=== PATIENT | female | born 1995 ===

== ENCOUNTER 2023-10-20 09:46 | Outpatient (AMB) | payer BC, SELFPAY ==
[2023-10-20 09:51] VITALS: BP 130/70; PULSE 110; O2SAT 100; BMI 46.1
--- NOTE | 2023-10-20 09:51 | MHC.OFFVIS ---
Intake Vital Signs 10/20/23 09:51 Height 5 ft 5 in Weight 277 lb BMI 46.1 BP 130/70 Blood Pressure Location Lt brachial Position Sitting Pulse 110 H Pulse Source Pulse Oximeter Pulse Oximetry (%) 100 Oxygen Delivery Method Room Air Intake Visit Reasons: shortness of breath Apartment House Manager Required: No Steward/Stewardess Tourist Class: Steward/Stewardess Tourist Class offered & declined Accompanied by: Self / Same As Patient Allergies Opioids - Morphine Analogues Allergy (Severe, Verified 10/20/23 09:55) Vomiting Medication List - Last Reconciled 10/20/23 by Aria Rosales LPN colchicine (gout) 0.6 mg PO BID cyclobenzaprine 10 mg PO BEDTIME fluconazole 150 mg PO DAILY PRN hydroxychloroquine 200 mg PO BID lamotrigine (Lamictal) 100 mg PO DAILY levonorgestrel (Liletta) intrauterine lorazepam 0.5 mg PO DAILY propranolol 20 mg PO DAILY sertraline 25 mg PO DAILY HPI shortness of breath HPI Details Yojana is a pleasant 28 year old female, current smoker with 12 pack year history and marijuana smoker, with underlying lupus, scleroderma, raynaud's, h/o pericardial effusion s/p pericardial window and recurrent pericarditis last November 2022. She is under the care of cardiology and rheumatology [place] [facility] [place] She has been on cellcept for the past 10 months and reports ESR/CRP have normalized, most recent cardiac MRI reportedly suggestive of cardiac fibrosis. She is also on hydroxychloroquine. She was referred for pulmonary evaluation by PCP for dyspnea. She reports since initial occurrence of pericarditis in 2019 she has had intermittent respiratory symptoms. She was recently seen in the ED 09/09/23 and again 10/06/23 with pleuritic chest pain and treated for possible pneumonia with two courses of prednisone and amoxicillin. CTA negative for PE but did reveal possible scarring of the lingula vs atelectasis. She reports pleuritic chest pain resolved about two days ago and continues with dyspnea on moderate exertion and dry cough. She denies any wheezing. She was prescribed flovent but unfortunately has been unable to obtain due to insurance coverage issues. She has been using albuterol PRN chest tigthness with good effect. She reports history of exercise induced asthma as a child. She reports paternal grandmother and maternal grandfather with lung cancer. Denies any occupational exposures. [facility] Social History (Updated 10/20/23 @ 09:59 by Aria Rosales LPN) Patient Tobacco Use Status: Current everyday Tobacco user Tobacco use type: Cigarette Cigarettes Per Day: 5 Years Smoked: 12 Smoked in Last 30 Days: Yes Review of Systems Const Denies chills, Denies excessive sweating, Denies fever(s), Denies headache(s) and Denies night sweats Eyes Denies irritation and Denies itchy eyes ENT Reports Normal hearing present, Denies headache(s), Denies nasal congestion, Denies nasal discharge, Denies post nasal drip and Denies sore throat Card Denies chest pain, Denies chest pain at rest, Denies chest pain with activity, Denies claudication, Denies leg edema, Denies orthopnea and Denies paroxysmal nocturnal dyspnea Resp Denies chest congestion, Denies excessive phlegm production, Denies pain on inspiration, Denies pain with cough, Denies stridor and Denies wheezing Musc Denies myalgias Neuro Reports Normal hearing present and Denies headache(s) Endo Denies excessive sweating Miller/Lymph Denies lymphadenopathy Aller/Immun Denies itchy eyes, Denies seasonal rhinorrhea and Denies wheezing Physical Exam Vital Signs: Last Vital Signs Pulse 110 H 10/20/23 09:51 BP 130/70 10/20/23 09:51 Pulse Ox 100 10/20/23 09:51 Oxygen Delivery Method Room Air 10/20/23 09:51 BMI result Body Mass Index 46.1 Const General: cooperative, healthy appearing, comfortable, no acute distress, well developed and alert Nutritional Appearance: obese Orientation/consciousness: patient oriented x3 Limitations: no limitations HEENT Head: Yes normal to inspection, Yes normocephalic and Yes atraumatic Ears: hearing grossly normal bilaterally and external ears normal Eyes General: appearance normal, both eyes and all related structures Eyelids: Yes eyelids normal Sclerae: sclerae normal EOM: EOMs intact bilaterally Neck Neck: Yes normal visual inspection and Yes no lymphadenopathy Lymphatic: no lymphadenopathy noted Chest Chest palpation & inspection: normal inspection of the chest Resp Effort & Inspection: normal respiratory effort, able to speak in complete sentences, no audible wheezes, no cough, no stridor, not tachypneic, no tripod positioning and no use of accessory muscles Auscultation: clear to auscultation bilaterally Cardio Jugular venous distension: no JVD Rate: regular rate Rhythm: regular rhythm Skin Other: warm, dry General skin exam: no rashes or lesions noted Neuro General: patient oriented x3 Cranial nerves: Yes Normal hearing present Cognition (Neuro): normal cognition Gait exam (Neuro): Normal gait present Extrem General: Yes normal to inspection, Yes capillary refill normal, Yes no clubbing, cyanosis or edema and Yes no pedal edema Psych Appearance: grossly normal and well kempt Speech and movement: Normal speech and movement present and Clear speech present Affect: normal affect Attitude: cooperative Thought process: Normal thought process present Thought content: Normal thought content present Insight: Good insight present (Psych) Judgement: Good judgement present (Psych) Assessment & Plan Assessment & Plan (1) Lupus (systemic lupus erythematosus): Code(s): M32.9 - Systemic lupus erythematosus, unspecified (2) History of pericarditis: Code(s): Z86.79 - Personal history of other diseases of the circulatory system (3) Scleroderma: Code(s): M34.9 - Systemic sclerosis, unspecified (4) Dyspnea on exertion: Code(s): R06.09 - Other forms of dyspnea (5) Obesity: Code(s): E66.9 - Obesity, unspecified Qualifiers: Obesity classification: adult class 3 (BMI >= 40) Plan Yojana's symptoms are likely related to underlying autoimmune etiologies as well as pulmonary and obesity contribution. At this time, she feels her symptoms are back to baseline with intermittent dyspnea with moderate exertion. Will obtain PFT to assess. Patient reported that she has been unable to obtain ICS, will send ICS. She is aware if she is unable to attain prescription, to call office. Will also obtain prior chest CTs that she has had over the years at [facility] to further evaluate possible scarring noted on most recent chest CT. Will also have her sign a release to obtain records from rheumatology and cardiology. All questions were answered and patient is in agreement of plan. Will follow up in 4-6 weeks to review PFT results and response to inhaler. Orders: Orders PFT pulmonary function test Today R06.09 - Other forms of dyspnea Medications: New mometasone 100 mcg/actuation (Asmanex HFA) 1 puff inhalation BID 13 grams 3RF Coding Level of Care Code New Pt Level 4 (92342) Diagnoses Lupus (systemic lupus erythematosus) M32.9 History of pericarditis Z86.79 Scleroderma M34.9 Dyspnea on exertion R06.09 Obesity E66.9 Obesity classification: adult class 3 (BMI >= 40)
== END 2023-10-20 10:40 | disposition home or self-care (01) ==
PROVIDERS: PCP Internal Medicine; Visit Provider Nurse Practitioner Family
DX: M32.9 Systemic lupus erythematosus, unspecified (principal); Z86.79 Personal history of other diseases of the circulatory system; M34.9 Systemic sclerosis, unspecified; R06.09 Other forms of dyspnea; E66.9 Obesity, unspecified
CPT/HCPCS: 99204

== ENCOUNTER → 2023-10-20 09:46 | Outpatient (BNVA) | payer BC, SELFPAY | PROVIDERS: PCP Internal Medicine; Visit Provider Nurse Practitioner Family ==

== ENCOUNTER 2023-11-19 08:44 | Outpatient (REF) | payer BC, SELFPAY ==
--- NOTE | 2023-11-19 09:00 | PFT_ITS ---
Indication: Asthma Spirometry [FEV1 to FVC 85%; FEV1 3 L which is 102% predicted; FVC 3.52 L which is 99% predicted no significant response to bronchodilators noted. Maximum voluntary ventilation 81% predicted] Lung Volumes [Total lung capacity 78% predicted] Diffusion Capacity [DLCO 92% predicted] Comparisons [None] Interpretation [No obstructive ventilatory defects. No significant response bronchodilators. Normal maximum voluntary ventilation. The patient does have a mild restrictive ventilatory defect. Normal diffusing capacity. If asthma is in the differential methacholine challenge may be helpful for assessing for hyperreactive airways. Otherwise clinical correlation warranted.] MTDD
== END 2023-11-19 08:45 | disposition home or self-care (01) ==
LOC: HO.RESP 08:44
PROVIDERS: PCP Internal Medicine; Visit Provider Nurse Practitioner Family
DX: R06.09 Other forms of dyspnea (principal)
CPT/HCPCS: 94010; 94727; 94729

== ENCOUNTER → 2023-11-19 09:00 | Outpatient (BNV) | payer BC, SELFPAY | PROVIDERS: PCP Internal Medicine; Visit Provider Hospitalist | DX: R06.00 Dyspnea, unspecified (principal) | CPT/HCPCS: 94060; 94727; 94729 ==

== ENCOUNTER 2023-12-02 15:08 | Outpatient (AMB) | payer BC, SELFPAY ==
[2023-12-02 15:11] VITALS: BP 122/64; PULSE 112; O2SAT 100; BMI 45.9
--- NOTE | 2023-12-02 15:11 | MHC.OFFVIS ---
Intake Vital Signs 12/02/23 15:11 Height 5 ft 5 in Weight 276 lb BMI 45.9 BP 122/64 Blood Pressure Location Rt brachial Position Sitting Pulse 112 H Pulse Source Pulse Oximeter Pulse Oximetry (%) 100 Oxygen Delivery Method Room Air Intake Visit Reasons: pft results Dyer Helper Required: No Senior Mechanical Designer: Senior Mechanical Designer offered & declined Accompanied by: Self / Same As Patient Allergies Opioids - Morphine Analogues Allergy (Severe, Verified 12/02/23 15:17) Vomiting Medication List - Last Reconciled 12/02/23 by Aria Rosales LPN budesonide-formoterol 80-4.5 mcg/actuation (Symbicort) 2 puffs inhalation Q12H colchicine 0.6 mg PO BID cyclobenzaprine 10 mg PO BEDTIME hydroxychloroquine 200 mg PO BID lamotrigine (Lamictal) 100 mg PO DAILY levonorgestrel (Liletta) intrauterine lorazepam 0.5 mg PO DAILY mometasone 100 mcg/actuation (Asmanex HFA) 1 puff inhalation BID mycophenolate mofetil 3tabs in am/2tabs in the pm orally 2 times a day; HPI pft results HPI Details Yojana is a pleasant 28 year old female, current minimal smoker with 12 pack year history with underlying lupus, scleroderma, raynaud's, h/o pericardial effusion s/p pericardial window and recurrent pericarditis last November 2022. She is under the care of cardiology and rheumatology at [facility] [place]. At the last visit she was started on symbicort for persistent dyspnea on moderate exertion and dry cough. She reports improvements overall, but has only been using at night. She denies any chest tightness or wheezing. Of note, she has decreased to 2 cigarettes per day and has stopped smoking marijuana. She has noticed significant improvements since decreasing. Today she presents to review PFT results. [facility] Social History (Updated 12/02/23 @ 15:21 by Aria Rosales LPN) Patient Tobacco Use Status: Current everyday Tobacco user Tobacco use type: Cigarette Cigarettes Per Day: 3 Years Smoked: 12 Review of Systems Const Denies chills, Denies excessive sweating, Denies fever(s), Denies headache(s) and Denies night sweats Eyes Denies irritation and Denies itchy eyes ENT Reports Normal hearing present, Denies headache(s), Denies nasal congestion, Denies nasal discharge, Denies post nasal drip and Denies sore throat Card Denies chest pain, Denies chest pain at rest, Denies chest pain with activity, Denies claudication, Denies leg edema, Denies orthopnea and Denies paroxysmal nocturnal dyspnea Resp Denies chest congestion, Denies cough, Denies excessive phlegm production, Denies pain on inspiration, Denies pain with cough, Denies stridor and Denies wheezing Musc Denies myalgias Neuro Reports Normal hearing present and Denies headache(s) Endo Denies excessive sweating Miller/Lymph Denies lymphadenopathy Aller/Immun Denies itchy eyes, Denies seasonal rhinorrhea and Denies wheezing Physical Exam Vital Signs: Last Vital Signs Pulse 112 H 12/02/23 15:11 BP 122/64 12/02/23 15:11 Pulse Ox 100 12/02/23 15:11 Oxygen Delivery Method Room Air 12/02/23 15:11 BMI result Body Mass Index 45.9 Const General: cooperative, healthy appearing, comfortable, no acute distress, well developed and alert Nutritional Appearance: obese Orientation/consciousness: patient oriented x3 Limitations: no limitations HEENT Head: Yes normal to inspection, Yes normocephalic and Yes atraumatic Ears: hearing grossly normal bilaterally and external ears normal Eyes General: appearance normal, both eyes and all related structures Eyelids: Yes eyelids normal Sclerae: sclerae normal EOM: EOMs intact bilaterally Neck Neck: Yes normal visual inspection and Yes no lymphadenopathy Lymphatic: no lymphadenopathy noted Chest Chest palpation & inspection: normal inspection of the chest Resp Effort & Inspection: normal respiratory effort, able to speak in complete sentences, no audible wheezes, no cough, no stridor, not tachypneic, no tripod positioning and no use of accessory muscles Auscultation: clear to auscultation bilaterally Cardio Jugular venous distension: no JVD Rate: regular rate Rhythm: regular rhythm Skin Other: warm, dry General skin exam: no rashes or lesions noted Neuro General: patient oriented x3 Cranial nerves: Yes Normal hearing present Cognition (Neuro): normal cognition Gait exam (Neuro): Normal gait present Extrem General: Yes normal to inspection, Yes capillary refill normal, Yes no clubbing, cyanosis or edema and Yes no pedal edema Psych Appearance: grossly normal and well kempt Speech and movement: Normal speech and movement present and Clear speech present Affect: normal affect Attitude: cooperative Thought process: Normal thought process present Thought content: Normal thought content present Insight: Good insight present (Psych) Judgement: Good judgement present (Psych) Results Reviewed Results Reviewed: Assessment & Plan Assessment & Plan (1) Lupus (systemic lupus erythematosus): Code(s): M32.9 - Systemic lupus erythematosus, unspecified (2) History of pericarditis: Code(s): Z86.79 - Personal history of other diseases of the circulatory system (3) Scleroderma: Code(s): M34.9 - Systemic sclerosis, unspecified (4) Dyspnea on exertion: Code(s): R06.09 - Other forms of dyspnea (5) Obesity: Code(s): E66.9 - Obesity, unspecified Qualifiers: Obesity classification: adult class 3 (BMI >= 40) Plan Reviewed PFT which did not reveal an obstructive defect and no significant response to bronchodilators except in small to medium airways. TLC was slightly decreased at 78% which is likely secondary to obesity. DLCO normal. Overall patient reports improvements in dyspnea and cough. Advised to attempt symbicort BID and use albuterol PRN. All questions were answered and patient is in agreement of plan. Will follow up in 6 months or sooner if needed. Coding Level of Care Code Est Pt Level 4 (19595) Diagnoses Lupus (systemic lupus erythematosus) M32.9 History of pericarditis Z86.79 Scleroderma M34.9 Dyspnea on exertion R06.09 Obesity E66.9 Obesity classification: adult class 3 (BMI >= 40)
== END 2023-12-02 15:48 | disposition home or self-care (01) ==
PROVIDERS: PCP Internal Medicine; Visit Provider Nurse Practitioner Family
DX: M32.9 Systemic lupus erythematosus, unspecified (principal); Z86.79 Personal history of other diseases of the circulatory system; M34.9 Systemic sclerosis, unspecified; R06.09 Other forms of dyspnea; E66.9 Obesity, unspecified
CPT/HCPCS: 99214

== ENCOUNTER → 2023-12-02 15:08 | Outpatient (BNVA) | payer BC, SELFPAY | PROVIDERS: PCP Internal Medicine; Visit Provider Nurse Practitioner Family ==

== ENCOUNTER 2024-02-26 14:59 | Outpatient (AMB) | payer BC, SELFPAY ==
[2024-02-26 15:03] VITALS: BP 122/68; PULSE 110; O2SAT 99; BMI 45.3
--- NOTE | 2024-02-26 15:03 | MHC.OFFVIS ---
Intake Vital Signs 02/26/24 15:03 Height 5 ft 5 in Weight 272 lb BMI 45.3 BP 122/68 Blood Pressure Location Rt brachial Position Sitting Pulse 110 H Pulse Source Pulse Oximeter Pulse Oximetry (%) 99 Oxygen Delivery Method Room Air Intake Visit Reasons: dyspnea on exertion Section Weaver Required: No Windows Security Engineer: Windows Security Engineer offered & declined Accompanied by: Self / Same As Patient Allergies Opioids - Morphine Analogues Allergy (Severe, Verified 02/26/24 15:07) Vomiting Medication List - Last Reconciled 02/26/24 by Aria Rosales LPN budesonide-formoterol 80-4.5 mcg/actuation (Symbicort) 2 puffs inhalation Q12H colchicine 0.6 mg PO BID cyclobenzaprine 10 mg PO BEDTIME hydroxychloroquine 200 mg PO BID lamotrigine (Lamictal) 100 mg PO DAILY levonorgestrel (Liletta) intrauterine lorazepam 0.5 mg PO DAILY mycophenolate mofetil 3tabs in am/2tabs in the pm orally 2 times a day; HPI dyspnea on exertion HPI Details Yojana is a pleasant 28 year old female, current minimal smoker with 12 pack year history with underlying lupus, scleroderma, raynaud's, h/o pericardial effusion s/p pericardial window and recurrent pericarditis last November 2022. She is under the care of cardiology and rheumatology at [facility] [place]. She has been using symbicort 1 inhalation QHS with suboptimal effect, reporting occasional dyspnea and dry cough. She denies any chest tightness or wheezing. Today she presents for an acute visit. She reports ongoing lower left pleuritic pain that started a few days ago and now with right sided pleuritic pain. She denies any hemoptysis or significant dyspnea. She denies lower extremity pain/swelling/erythema. [facility] Social History (Updated 02/26/24 @ 15:08 by Aria Rosales LPN) Patient Tobacco Use Status: Current everyday Tobacco user Tobacco use type: Cigarette Cigarettes Per Day: 3 Years Smoked: 12 Review of Systems Const Denies chills, Denies excessive sweating, Denies fever(s), Denies headache(s) and Denies night sweats Eyes Denies irritation and Denies itchy eyes ENT Reports Normal hearing present, Denies headache(s), Denies nasal congestion, Denies nasal discharge, Denies post nasal drip and Denies sore throat Card Denies claudication, Denies leg edema, Denies orthopnea and Denies paroxysmal nocturnal dyspnea Resp Denies chest congestion, Denies cough, Denies excessive phlegm production, Denies pain on inspiration, Denies pain with cough, Denies stridor and Denies wheezing Musc Denies myalgias Neuro Reports Normal hearing present and Denies headache(s) Endo Denies excessive sweating Miller/Lymph Denies lymphadenopathy Aller/Immun Denies itchy eyes, Denies seasonal rhinorrhea and Denies wheezing Physical Exam Vital Signs: Last Vital Signs Pulse 110 H 02/26/24 15:03 BP 122/68 02/26/24 15:03 Pulse Ox 99 02/26/24 15:03 Oxygen Delivery Method Room Air 02/26/24 15:03 BMI result Body Mass Index 45.3 Const General: cooperative, healthy appearing, comfortable, no acute distress, well developed and alert Nutritional Appearance: obese Orientation/consciousness: patient oriented x3 Limitations: no limitations HEENT Head: Yes normal to inspection, Yes normocephalic and Yes atraumatic Ears: hearing grossly normal bilaterally and external ears normal Eyes General: appearance normal, both eyes and all related structures Eyelids: Yes eyelids normal Sclerae: sclerae normal EOM: EOMs intact bilaterally Neck Neck: Yes normal visual inspection and Yes no lymphadenopathy Lymphatic: no lymphadenopathy noted Chest Chest palpation & inspection: normal inspection of the chest Resp Effort & Inspection: normal respiratory effort, able to speak in complete sentences, no audible wheezes, no cough, no stridor, not tachypneic, no tripod positioning and no use of accessory muscles Auscultation: clear to auscultation bilaterally Cardio Jugular venous distension: no JVD Rate: regular rate Rhythm: regular rhythm Skin Other: warm, dry General skin exam: no rashes or lesions noted Neuro General: patient oriented x3 Cranial nerves: Yes Normal hearing present Cognition (Neuro): normal cognition Gait exam (Neuro): Normal gait present Extrem General: Yes normal to inspection, Yes capillary refill normal, Yes no clubbing, cyanosis or edema and Yes no pedal edema Psych Appearance: grossly normal and well kempt Speech and movement: Normal speech and movement present and Clear speech present Affect: normal affect Attitude: cooperative Thought process: Normal thought process present Thought content: Normal thought content present Insight: Good insight present (Psych) Judgement: Good judgement present (Psych) Assessment & Plan Assessment & Plan (1) Lupus (systemic lupus erythematosus): Code(s): M32.9 - Systemic lupus erythematosus, unspecified (2) History of pericarditis: Code(s): Z86.79 - Personal history of other diseases of the circulatory system (3) Scleroderma: Code(s): M34.9 - Systemic sclerosis, unspecified (4) Dyspnea on exertion: Code(s): R06.09 - Other forms of dyspnea (5) Obesity: Code(s): E66.9 - Obesity, unspecified Qualifiers: Obesity classification: adult class 3 (BMI >= 40) Plan Patient continues to report intermittent dyspnea and cough. Recommended to increase symbicort to BID and reevaluate response at next visit. In regards to new onset pleuritic chest pain, will send patient for ddimer, although likelihood of clot is low. Will also send for CXR. Patient aware if develops worsening symptoms to seek emergent care. All questions were answered and patient is in agreement of plan. Will follow up at regularly scheduled appointment or sooner if needed. Orders: Orders D Dimer High Sensitivity 02/26/24 R07.81 - Pleurodynia XR chest 2V 02/26/24 R07.81 - Pleurodynia Medications: Refilled budesonide-formoterol 80-4.5 mcg/actuation (Symbicort) 2 puffs inhalation Q12H 10.2 grams 6RF Coding Level of Care Code Est Pt Level 4 (50276) Diagnoses Lupus (systemic lupus erythematosus) M32.9 History of pericarditis Z86.79 Scleroderma M34.9 Dyspnea on exertion R06.09 Obesity E66.9 Obesity classification: adult class 3 (BMI >= 40)
== END 2024-02-26 15:30 | disposition home or self-care (01) ==
PROVIDERS: PCP Internal Medicine; Visit Provider Nurse Practitioner Family
DX: M32.9 Systemic lupus erythematosus, unspecified (principal); Z86.79 Personal history of other diseases of the circulatory system; M34.9 Systemic sclerosis, unspecified; R06.09 Other forms of dyspnea; E66.9 Obesity, unspecified
CPT/HCPCS: 99214

== ENCOUNTER → 2024-02-26 14:59 | Outpatient (BNVA) | payer BC, SELFPAY | PROVIDERS: PCP Internal Medicine; Visit Provider Nurse Practitioner Family ==

== ENCOUNTER 2024-04-01 14:46 | Outpatient (AMB) | payer BC, SELFPAY ==
[2024-04-01 14:52] VITALS: BP 128/80; PULSE 92; O2SAT 100; BMI 45.8
--- NOTE | 2024-04-01 14:52 | MHC.OFFVIS ---
Vital Signs 04/01/24 14:52 Height 5 ft 5 in Weight 275 lb 6 oz BMI 45.8 BP 128/80 Blood Pressure Location Lt radial Position Sitting Pulse 92 Pulse Source Pulse Oximeter Pulse Oximetry (%) 100 Oxygen Delivery Method Room Air Intake Visit Reasons: dyspnea Allergies Opioids - Morphine Analogues Allergy (Severe, Verified 04/01/24 14:58) Vomiting HPI HPI dyspnea: Details: Yojana is a pleasant 28 year old female, current minimal smoker with 12 pack year history with underlying lupus, scleroderma, raynaud's, h/o pericardial effusion s/p pericardial window and recurrent pericarditis last November 2022. She is under the care of cardiology and rheumatology at [facility]. She has been using symbicort 1 inhalation QHS with suboptimal effect, reporting occasional dyspnea and chest tightness. She denies cough or wheezing. She was recently evaluated at [place] [facility] for ongoing RUQ pain. Ddimer negative however upper limit of normal, CTA negative for PE. Patient will be undergoing GI evaluation in the near future with endoscopy vs ercp at [facility]. She also reports an upcoming echo. [facility] Social History Patient Tobacco Use Status: Current everyday Tobacco user Tobacco use type: Cigarette Cigarettes Per Day: 3 Years Smoked: 12 Review of Systems Const Denies chills, Denies excessive sweating, Denies fever(s), Denies headache(s) and Denies night sweats Eyes Denies irritation and Denies itchy eyes ENT Reports Normal hearing present, Denies headache(s), Denies nasal congestion, Denies nasal discharge, Denies post nasal drip and Denies sore throat Card Denies claudication, Denies leg edema, Denies orthopnea and Denies paroxysmal nocturnal dyspnea Resp Denies chest congestion, Denies cough, Denies excessive phlegm production, Denies pain on inspiration, Denies pain with cough, Denies stridor and Denies wheezing Musc Denies myalgias Neuro Reports Normal hearing present and Denies headache(s) Endo Denies excessive sweating Miller/Lymph Denies lymphadenopathy Aller/Immun Denies itchy eyes, Denies seasonal rhinorrhea and Denies wheezing Physical Exam Vital Signs: Last Vital Signs Pulse 92 04/01/24 14:52 BP 128/80 04/01/24 14:52 Pulse Ox 100 04/01/24 14:52 Oxygen Delivery Method Room Air 04/01/24 14:52 BMI result Body Mass Index 45.8 Const General: cooperative, healthy appearing, comfortable, no acute distress, well developed and alert Nutritional Appearance: obese Orientation/consciousness: patient oriented x3 Limitations: no limitations HEENT Head: Yes normal to inspection, Yes normocephalic and Yes atraumatic Ears: hearing grossly normal bilaterally and external ears normal Eyes General: appearance normal, both eyes and all related structures Eyelids: Yes eyelids normal Sclerae: sclerae normal EOM: EOMs intact bilaterally Neck Neck: Yes normal visual inspection and Yes no lymphadenopathy Lymphatic: no lymphadenopathy noted Chest Chest palpation & inspection: normal inspection of the chest Resp Effort & Inspection: normal respiratory effort, able to speak in complete sentences, no audible wheezes, no cough, no stridor, not tachypneic, no tripod positioning and no use of accessory muscles Auscultation: clear to auscultation bilaterally Cardio Jugular venous distension: no JVD Rate: regular rate Rhythm: regular rhythm Skin Other: warm, dry General skin exam: no rashes or lesions noted Neuro General: patient oriented x3 Cranial nerves: Yes Normal hearing present Cognition (Neuro): normal cognition Gait exam (Neuro): Normal gait present Extrem General: Yes normal to inspection, Yes capillary refill normal, Yes no clubbing, cyanosis or edema and Yes no pedal edema Psych Appearance: grossly normal and well kempt Speech and movement: Normal speech and movement present and Clear speech present Affect: normal affect Attitude: cooperative Thought process: Normal thought process present Thought content: Normal thought content present Insight: Good insight present (Psych) Judgement: Good judgement present (Psych) Assessment & Plan Assessment & Plan (1) Lupus (systemic lupus erythematosus): Code(s): M32.9 - Systemic lupus erythematosus, unspecified Category: Medical (2) History of pericarditis: Code(s): Z86.79 - Personal history of other diseases of the circulatory system Category: Medical (3) Scleroderma: Code(s): M34.9 - Systemic sclerosis, unspecified Category: Medical (4) Dyspnea on exertion: Code(s): R06.09 - Other forms of dyspnea Category: Medical (5) Obesity: Code(s): E66.9 - Obesity, unspecified Category: Medical Qualifiers: Obesity classification: adult class 3 (BMI >= 40) Plan Patient continues to report intermittent dyspnea and chest tightness. Recommendations were made at last visit to increase symbicort to two inhalations BID and has only been using once daily. Will increase. Reassured patient that chest CT did not reveal anything concerning.All questions were answered and patient is in agreement of plan. Will follow up at regularly scheduled appointment or sooner if needed. Coding Level of Care Code Est Pt Level 4 (31426) Diagnoses Lupus (systemic lupus erythematosus) M32.9 History of pericarditis Z86.79 Scleroderma M34.9 Dyspnea on exertion R06.09 Obesity E66.9 Obesity classification: adult class 3 (BMI >= 40)
== END 2024-04-01 15:35 | disposition home or self-care (01) ==
PROVIDERS: PCP Internal Medicine; Visit Provider Nurse Practitioner Family
DX: M32.9 Systemic lupus erythematosus, unspecified (principal); Z86.79 Personal history of other diseases of the circulatory system; M34.9 Systemic sclerosis, unspecified; R06.09 Other forms of dyspnea; E66.9 Obesity, unspecified
CPT/HCPCS: 99214

== ENCOUNTER → 2024-04-01 14:46 | Outpatient (BNVA) | payer BC, SELFPAY | PROVIDERS: PCP Internal Medicine; Visit Provider Nurse Practitioner Family ==

== ENCOUNTER 2024-05-10 13:32 | Outpatient (AMB) | payer BC, SELFPAY ==
--- NOTE | 2024-05-10 13:28 | MHC.PC.OV ---
Vital Signs 05/10/24 13:49 Height 5 ft 6.14 in Weight 274 lb 2 oz BMI 44.1 BP 132/84 Blood Pressure Location Rt brachial Position Sitting Respiration 16 Pulse 105 H Pulse Source Pulse Oximeter Temp 98.7 F Temp Source Oral Pulse Oximetry (%) 98 Oxygen Delivery Method Room Air Intake Visit Reasons: Establish Care transfer from [facility] Intake Note: New patient visit. Therapeutic Sales Specialist Required: No Is last menstrual period known: Yes Last menstrual period: 03/12/24 Allergies Opioids - Morphine Analogues Allergy (Severe, Verified 05/10/24 13:29) Vomiting Medication List - Last Reconciled 05/11/24 by Sunni Earl MD budesonide-formoterol 80-4.5 mcg/actuation (Symbicort) 2 puffs inhalation Q12H colchicine 0.6 mg PO BID cyclobenzaprine 10 mg PO BEDTIME famotidine 20 mg PO BID hydroxychloroquine 200 mg PO BID lamotrigine (Lamictal) 100 mg PO DAILY levonorgestrel (Liletta) intrauterine Linzess (linaclotide) 290 mcg PO QAM NS lorazepam 0.5 mg PO DAILY metoclopramide HCl (Reglan) 5 mg PO QIDACHS mycophenolate mofetil 3tabs in am/2tabs in the pm orally 2 times a day; propranolol 20 - 40 mg PO QPM tirzepatide (Mounjaro) 2.5 mg (0.5 mL) subcut QWEEK 4 weeks Tobacco use date assessed: 05/10/24 Dental Screening Dental Screen Date: 05/10/24 Did you have a dental visit in the last 12 months?: Yes Did you have a dental problem in the last 6 months where you did not have access to dental care?: No Was dental information given to patient?: Patient has dentist HPI HPI Comments History of Present Illness Details This is a 29 year old female with a past medical history of SLE, scleroderma, anxiety, bipolar depression, SOFYA presenting for follow up At our last visit requested referral to pulm and breathing studies. She was evaluated last fall in the ER for shortness of breath. Using an albuterol inhaler was very helpful for symptoms. She stopped smoking marijuana. She cut back on cigarettes -down to 4-5 per day SLE: Follows at [facility]. Complicated by lupus percarditis. Recent holter reassuring. Also has former diagnosis of fibromyalgia. Flares of myalgia, arthralgia, radiculopathy. On cellcept, HCQ. Unable to sustain daily work. Bipolar: Fairly stable. Depression can worsen intermittently. Sometimes overwhelmed with multiple medical issues. Sees psychiatry and therapist. She is on lamictal, ativan. A lot of issues with constipation. She is taking miralax 2x daily, reglan prn. She was seen in the ER for abdominal pain. GI did EGD this month. Considering colonoscopy ROS see HPI PHYSICAL EXAM: GENERAL: Alert and oriented x 3. NAD EYES: EOMI. Anicteric. HENT: Moist mucous membranes. LUNGS: Clear to auscultation bilaterally. CARDIOVASCULAR: Regular rate and rhythm. No murmur. No JVD. ABDOMEN: Soft, non-tender EXTREMITIES: No edema. Non-tender. SKIN: No rashes or lesions. Warm. NEUROLOGIC: No focal neurological deficits. CN II-XII grossly intact PSYCHIATRIC: Cooperative. Appropriate mood and affect [facility] Medical History (Updated 05/11/24 @ 15:16 by Sunni Earl MD) Vitamin D deficiency Sphincter of Oddi dysfunction SLE (systemic lupus erythematosus related syndrome) Restless leg syndrome Raynauds disease Radial styloid tenosynovitis Pericarditis Obstructive sleep apnea Microcytic hypochromic anemia HTN (hypertension) Gestational diabetes Fibromyalgia Depression Cervical lymphadenopathy Bipolar disorder Acanthosis Abdominal pain Surgical History (Updated 05/10/24 @ 13:36 by Kimber Carson CMA) H/O wisdom tooth extraction S/P ERCP Family History (Updated 05/10/24 @ 13:44 by Kimber Carson CMA) Father Bipolar 1 disorder Substance use Mother Alcoholism Other FH: mental illness Social History (Updated 05/10/24 @ 13:42 by Kimber Carson CMA) Housing: Apartment Patient Tobacco Use Status: Current everyday Tobacco user Tobacco use type: Cigarette Cigarettes Per Day: 3 Years Smoked: 12 e-Cigarette/Vaping Use: Never Used Second Hand Smoke Exposure: Yes service: No Current occupational status: employed and unemployed Cognitive needs: No Hearing needs: No Vision needs: No Female Reproductive History Menstrual Date of last menstrual period: 03/12/24 Questionnaire PHQ-9 Over the last 2 weeks, how often have you been bothered by any of the following problems? 1. Little interest or pleasure in doing things: several days 2. Feeling down, depressed, or hopeless: several days 3. Trouble falling or staying asleep, or sleeping too much: several days 4. Feeling tired or having little energy: several days 5. Poor appetite or overeating: several days 6. Feeling bad about yourself - or that you are a failure or have let yourself or your family down: several days 7. Trouble concentrating on things, such as reading the newspaper or watching television: several days 8. Moving or speaking so slowly that other people could have noticed. Or the opposite - being so fidgety or restless that you have been moving around a lot more than usual: several days 9. Thoughts that you would be better off or of hurting yourself in some way: not at all Total score: 8 Depression Screening Interpretation: Positive Depression Screening Follow-up: Existing condition, In treatment and Community Mental Health Worker F/U Depression Screening Done: Yes 23003 - PHQ-9 Billing: Yes Source: Developed by Drs. Remigio Swan, Juliana Milan, Cristian Tripathi and colleagues, with an educational helena from [employer] Thrive Questionnaire Date Thrive assessed: 05/10/24 I am a: Patient What is your living situation today?: I have a steady place to live Within the past 12 months, did the food you bought not last and you didn't have the money to get more?: Sometimes True Within the past 12 months, did you worry whether your food would run out before you got money to buy more?: Sometimes True Do you have trouble paying for medicines?: No Do you have trouble getting transportation to medical appointments?: No Do you have trouble paying your heating and electricity bill?: No Do you have trouble taking care of your child, family member or friend?: No Do you have trouble with day-to-day activities such as bathing, preparing meals, shopping, managing finances, etc.?: No Are you currently unemployed and looking for a job?: No Are you interested in more education?: No Please select the resources that you would like help with: None Currently or been in a relationship where the following occur: no concerns reported THRIVE Score: 2 AUDIT C Alcohol Use Questionnaire (AUDIT-C) 1. How often do you have a drink containing alcohol?: Never 2. How many drinks containing alcohol do you have on a typical day when you are drinking?: 1 or 2 Total Score: 0 MAHAMED-7 AMB Questionnaire MAHAMED-7 Date MAHAMED - 7 assessed: 05/10/24 Feeling nervous, anxious, or on edge: 1 = Several days Not being able to stop or control worryin = Several days Worrying too much about different things: 1 = Several days Trouble relaxin = Several days Being so restless that it is hard to sit still: 1 = Several days Becoming easily annoyed or irritable: 1 = Several days Feeling afraid as if something awful might happen: 1 = Several days Total MAHAMED-7 score (0-4 normal; 5-9 mild; 10-14 moderate; 15-21 severe): 7 Source: Developed by Drs. Remigio Swan, Juliana Milan, Cristian Tripathi and colleagues, with an educational helena from [employer] MAHAMED-7 Assessment Billing MAHAMED-7 Assessment Tool: MAHAMED-7 Assessment 52657 ACT Questionnaire In the past 4 weeks, how much of the time did your asthma keep you from getting as much done at work, school or at home?: None of the time During the past 4 weeks, how often have you had shortness of breath?: Not at all During the past 4 weeks, how often did your asthma symptoms wake you up at night or earlier than usual in the morning?: Not at all During the past 4 weeks, how often have you had to use your rescue inhaler or nebulizer medication?: Not at all How would you rate your asthma control during the past 4 weeks?: Completely controlled ACT Interpretation: Negative Score: 25 Physical exam (Primary Care) Vital Signs: Last Vital Signs Temp 98.7 F 05/10/24 13:49 Pulse 105 H 05/10/24 13:49 Resp 16 05/10/24 13:49 BP 132/84 05/10/24 13:49 Pulse Ox 98 05/10/24 13:49 Oxygen Delivery Method Room Air 05/10/24 13:49 BMI result Body Mass Index 44.1 Tobacco/Smoking Status: Tobacco use Status Tobacco use date assessed 05/10/24 05/10/24 13:35 Patient Tobacco Use Status Current everyday Tobacco 05/10/24 13:42 Tobacco use type Cigarette 05/10/24 13:42 e-Cigarette/Vaping Use Never Used 05/10/24 13:46 PHQ-9: PHQ-9 Score PHQ-9: Total score 8 05/10/24 15:01 Depression Screening Interpretation: Positive Depression Screening Follow-up: Existing condition, In treatment and Community Mental Health Worker F/U Thrive Assessment: Date of Thrive Assessment Date Thrive assessed 05/10/24 05/10/24 13:54 Currently or been in a relationship where the following occur: no concerns reported Assessment and Plan Assessment & Plan (1) Lupus (systemic lupus erythematosus): Code(s): M32.9 - Systemic lupus erythematosus, unspecified Qualifiers: Systemic lupus erythematosus type: unspecified Systemic lupus erythematosus organ involvement: pericarditis Qualified Code(s): M32.12 - Pericarditis in systemic lupus erythematosus Plan: chronic stable without current flare. she will continue curent medications & follow up with rheumatology (2) Scleroderma: Code(s): M34.9 - Systemic sclerosis, unspecified (3) History of pericarditis: Code(s): Z86.79 - Personal history of other diseases of the circulatory system (4) Bipolar disorder: Code(s): F31.9 - Bipolar disorder, unspecified Qualifiers: Active/Remission status: in partial remission Most recent bipolar episode type: depressed Qualified Code(s): F31.75 - Bipolar disorder, in partial remission, most recent episode depressed Plan: Varying levels of depression. Complex medical. Has good support btw psychiatry and therapist (5) Chronic constipation: Code(s): K59.09 - Other constipation Plan: Stop miralax. Start linzess especially given addition of mounjaro. We did discuss the potential side effects of this medication (6) Obesity: Code(s): E66.9 - Obesity, unspecified Qualifiers: Obesity classification: adult class 3 (BMI >= 40) Obesity type: due to excess calories Serious obesity comorbidity presence: unspecified whether serious comorbidity present Body mass index: BMI 40.0-44.9 Qualified Code(s): E66.01 - Morbid (severe) obesity due to excess calories; Z68.41 - Body mass index [BMI] 40.0-44.9, adult Plan: Trial GLP-1. Linzess started Orders: Orders Complete Blood Count Auto Diff 05/10/24 M32.9 - Systemic lupus erythematosus, unspecified Erythrocyte Sedimentation Rate 05/10/24 M32.9 - Systemic lupus erythematosus, unspecified CRP High Sensitivity 05/10/24 M32.9 - Systemic lupus erythematosus, unspecified Medications: New tirzepatide (Mounjaro) 2.5 mg (0.5 mL) subcut QWEEK 4 weeks 2 mL 0RF Linzess (linaclotide) 290 mcg PO QAM 90 caps 3RF NS Coding Level of Care Code Est Pt Level 5 (95330) Complex EM visit Add On G2211 Diagnoses Systemic lupus erythematosus (SLE) with pericarditis, unspecified SLE type M32.12 Systemic lupus erythematosus type: unspecified Systemic lupus erythematosus organ involvement: pericarditis Scleroderma M34.9 History of pericarditis Z86.79 Bipolar disorder, in partial remission, most recent episode depressed F31.75 Active/Remission status: in partial remission Most recent bipolar episode type: depressed Chronic constipation K59.09 Class 3 severe obesity due to excess calories with body mass index (BMI) of 40.0 to 44.9 in adult, unspecified whether serious comorbidity present E66.01; Z68.41 Obesity classification: adult class 3 (BMI >= 40) Obesity type: due to excess calories Serious obesity comorbidity presence: unspecified whether serious comorbidity present Body mass index: BMI 40.0-44.9 Additional Codes MAHAMED-7 Assessment Billing - MAHAMED-7 Assessment Tool: MAHAMED-7 Assessment 22638 ([id number]) Time Spent (min) 55
[2024-05-10 13:49] VITALS: BP 132/84; PULSE 105; RESP 16; TEMP 37.1; O2SAT 98; BMI 44.1
== END 2024-05-10 14:29 | disposition home or self-care (01) ==
PROVIDERS: PCP Internal Medicine; Visit Provider Internal Medicine
DX: M32.12 Pericarditis in systemic lupus erythematosus (principal); M34.9 Systemic sclerosis, unspecified; E66.01 Morbid (severe) obesity due to excess calories; Z68.41 Body mass index [BMI] 40.0-44.9, adult; F31.75 Bipolar disorder, in partial remission, most recent episode depressed; Z86.79 Personal history of other diseases of the circulatory system; K59.09 Other constipation
CPT/HCPCS: 99215

== ENCOUNTER 2024-05-19 14:22 | Outpatient (REF) | payer BC, SELFPAY ==
[2024-05-19 17:53] LABS: MANUAL DIFF FLAG NO
[2024-05-19 18:06] LABS: Basophils Percent Auto 0.3 % (0-2); Eosinophils Absolute Auto 0.1 X10*3/uL (0.0-0.4); Eosinophils Percent Auto 1.5 % (0-4); Hematocrit 41.6 % (37.0-47.0); Hemoglobin 13.2 g/dl (12.0-16.0); Imm Gran Abs Auto 0.04 X10*3/uL (0.00-0.03); Imm Gran Pct Auto 0.5 % (0.0-0.4); Lymphocytes Absolute Auto 2.3 X10*3/uL (1.2-4.9); Lymphocytes Percent Auto 26.2 % (20-40); Mean Corpuscular HGB Conc 31.7 g/dl (31.0-35.0); Mean Corpuscular Hemoglobin 24.6 pg (27.0-33.0); Mean Corpuscular Volume 77.5 fL (80.0-98.0); Mean Platelet Volume 10.8 fL (9.4-12.3); Monocytes Absolute Auto 0.4 X10*3/uL (0.1-1.2); Monocytes Percent Auto 4.8 % (2-11); Neutrophils Absolute Auto 5.8 x10*3/uL (2.0-8.3); Neutrophils Percent Auto 66.7 % (45-73); Platelet Count 306 X10*3/uL (160-400); Red Blood Count 5.37 X10*6/uL (4.20-5.50); White Blood Count 8.7 X10*3/uL (4.8-10.8)
[2024-05-19 18:50] LABS: Erythrocyte Sedimentation Rate 10 MM/HR (0-20)
[2024-05-20 08:08] LABS: CRP High Sensitivity 10.2 mg/L
== END 2024-05-19 14:23 | disposition home or self-care (01) ==
LOC: HO.WFDLDS 14:22
PROVIDERS: Visit Provider Internal Medicine
DX: M32.9 Systemic lupus erythematosus, unspecified (principal)
CPT/HCPCS: 36415; 85025; 85652; 86141

== ENCOUNTER 2024-06-10 13:10 | Outpatient (AMB) | payer BC, SELFPAY ==
--- NOTE | 2024-06-10 13:12 | MHC.OFFVIS ---
Vital Signs 06/10/24 13:13 Height 5 ft 5 in Weight 276 lb 2 oz BMI 45.9 BP 130/78 Blood Pressure Location Rt brachial Position Sitting Pulse 104 H Pulse Source Pulse Oximeter Pulse Oximetry (%) 98 Oxygen Delivery Method Room Air Intake Visit Reasons: dyspnea on exertion: 6 month f/u Allergies Opioids - Morphine Analogues Allergy (Severe, Verified 06/10/24 13:16) Vomiting HPI HPI dyspnea on exertion: 6 month f/u: Details: Yojana is a pleasant 29 year old female, current minimal smoker with 12 pack year history with underlying lupus, scleroderma, raynaud's, h/o pericardial effusion s/p pericardial window and recurrent pericarditis last November 2022. She is under the care of cardiology and rheumatology at [facility]. Today she presents for routine visit. She reports good control of respiratory symptoms using Symbicort. Denies any cough, wheezing, dyspnea. She does report recent evaluation at [facility], undergoing echo which revealed LVEF 55% and trace regurgitation of mitral valve. She denies any visits to urgent care or hospitalizations since last visit. [facility] Medical History (Updated 05/11/24 @ 15:16 by Sunni Earl MD) Vitamin D deficiency Sphincter of Oddi dysfunction SLE (systemic lupus erythematosus related syndrome) Restless leg syndrome Raynauds disease Radial styloid tenosynovitis Pericarditis Obstructive sleep apnea Microcytic hypochromic anemia HTN (hypertension) Gestational diabetes Fibromyalgia Depression Cervical lymphadenopathy Bipolar disorder Acanthosis Abdominal pain Surgical History (Updated 05/10/24 @ 13:36 by Kimber Carson CMA) H/O wisdom tooth extraction S/P ERCP Family History (Updated 05/10/24 @ 13:44 by Kimber Carson CMA) Father Bipolar 1 disorder Substance use Mother Alcoholism Other FH: mental illness Social History (Updated 06/10/24 @ 13:16 by Knachan Cabrera CMA) Housing: Apartment Patient Tobacco Use Status: Current everyday Tobacco user Tobacco use type: Cigarette Cigarettes Per Day: 10 Years Smoked: 12 e-Cigarette/Vaping Use: Never Used Second Hand Smoke Exposure: Yes service: No Current occupational status: employed and unemployed Cognitive needs: No Hearing needs: No Vision needs: No Review of Systems Const Denies chills, Denies excessive sweating, Denies fever(s), Denies headache(s) and Denies night sweats Eyes Denies irritation and Denies itchy eyes ENT Reports Normal hearing present, Denies headache(s), Denies nasal congestion, Denies nasal discharge, Denies post nasal drip and Denies sore throat Card Denies claudication, Denies leg edema, Denies orthopnea and Denies paroxysmal nocturnal dyspnea Resp Denies chest congestion, Denies cough, Denies excessive phlegm production, Denies pain on inspiration, Denies pain with cough, Denies stridor and Denies wheezing Musc Denies myalgias Neuro Reports Normal hearing present and Denies headache(s) Endo Denies excessive sweating Miller/Lymph Denies lymphadenopathy Aller/Immun Denies itchy eyes, Denies seasonal rhinorrhea and Denies wheezing Physical Exam Vital Signs: Last Vital Signs Pulse 104 H 06/10/24 13:13 BP 130/78 06/10/24 13:13 Pulse Ox 98 06/10/24 13:13 Oxygen Delivery Method Room Air 06/10/24 13:13 BMI result Body Mass Index 45.9 Const General: cooperative, healthy appearing, comfortable, no acute distress, well developed and alert Nutritional Appearance: obese Orientation/consciousness: patient oriented x3 Limitations: no limitations HEENT Head: Yes normal to inspection, Yes normocephalic and Yes atraumatic Ears: hearing grossly normal bilaterally and external ears normal Eyes General: appearance normal, both eyes and all related structures Eyelids: Yes eyelids normal Sclerae: sclerae normal EOM: EOMs intact bilaterally Neck Neck: Yes normal visual inspection and Yes no lymphadenopathy Lymphatic: no lymphadenopathy noted Chest Chest palpation & inspection: normal inspection of the chest Resp Effort & Inspection: normal respiratory effort, able to speak in complete sentences, no audible wheezes, no cough, no stridor, not tachypneic, no tripod positioning and no use of accessory muscles Auscultation: clear to auscultation bilaterally Cardio Jugular venous distension: no JVD Rate: regular rate Rhythm: regular rhythm Skin Other: warm, dry General skin exam: no rashes or lesions noted Neuro General: patient oriented x3 Cranial nerves: Yes Normal hearing present Cognition (Neuro): normal cognition Gait exam (Neuro): Normal gait present Extrem General: Yes normal to inspection, Yes capillary refill normal, Yes no clubbing, cyanosis or edema and Yes no pedal edema Psych Appearance: grossly normal and well kempt Speech and movement: Normal speech and movement present and Clear speech present Affect: normal affect Attitude: cooperative Thought process: Normal thought process present Thought content: Normal thought content present Insight: Good insight present (Psych) Judgement: Good judgement present (Psych) Assessment & Plan Assessment & Plan (1) Lupus (systemic lupus erythematosus): Code(s): M32.9 - Systemic lupus erythematosus, unspecified Category: Medical Qualifiers: Systemic lupus erythematosus type: unspecified Systemic lupus erythematosus organ involvement: pericarditis Qualified Code(s): M32.12 - Pericarditis in systemic lupus erythematosus (2) History of pericarditis: Code(s): Z86.79 - Personal history of other diseases of the circulatory system Category: Medical (3) Scleroderma: Code(s): M34.9 - Systemic sclerosis, unspecified Category: Medical (4) Obesity: Code(s): E66.9 - Obesity, unspecified Category: Medical Qualifiers: Obesity type: due to excess calories Obesity classification: adult class 3 (BMI >= 40) Serious obesity comorbidity presence: unspecified whether serious comorbidity present Body mass index: BMI 40.0-44.9 Qualified Code(s): E66.01 - Morbid (severe) obesity due to excess calories; Z68.41 - Body mass index [BMI] 40.0-44.9, adult Plan Yojana reports good control of respiratory symptoms on current regimen. Advised to continue. She is aware if there is any changes to call the office. We discussed smoking cessation which she is working towards. All questions were answered and patient is in agreement of plan. Will follow up in 3-6 months or sooner if needed. Coding Level of Care Code Est Pt Level 3 (82631) Diagnoses Systemic lupus erythematosus (SLE) with pericarditis, unspecified SLE type M32.12 Systemic lupus erythematosus type: unspecified Systemic lupus erythematosus organ involvement: pericarditis History of pericarditis Z86.79 Scleroderma M34.9 Class 3 severe obesity due to excess calories with body mass index (BMI) of 40.0 to 44.9 in adult, unspecified whether serious comorbidity present E66.01; Z68.41 Obesity type: due to excess calories Obesity classification: adult class 3 (BMI >= 40) Serious obesity comorbidity presence: unspecified whether serious comorbidity present Body mass index: BMI 40.0-44.9
[2024-06-10 13:13] VITALS: BP 130/78; PULSE 104; O2SAT 98; BMI 45.9
== END 2024-06-10 13:51 | disposition home or self-care (01) ==
PROVIDERS: PCP Internal Medicine; Visit Provider Nurse Practitioner Family
DX: M32.12 Pericarditis in systemic lupus erythematosus (principal); Z86.79 Personal history of other diseases of the circulatory system; M34.9 Systemic sclerosis, unspecified; E66.01 Morbid (severe) obesity due to excess calories; Z68.41 Body mass index [BMI] 40.0-44.9, adult
CPT/HCPCS: 99213

== ENCOUNTER → 2024-06-10 13:10 | Outpatient (BNVA) | payer BC, SELFPAY | PROVIDERS: PCP Internal Medicine; Visit Provider Nurse Practitioner Family ==

== ENCOUNTER 2024-08-09 10:07 | Outpatient (AMB) | payer BC, SELFPAY ==
--- NOTE | 2024-08-09 10:23 | A.OFFPC_ITS ---
Vital Signs 08/09/24 10:25 Height 5 ft 5 in Weight 277 lb BMI 46.1 BP 164/95 H Blood Pressure Location Rt radial Position Sitting Respiration 12 Pulse 82 Pulse Source Pulse Oximeter Temp 98.6 F Temp Source Temporal Artery Scan Pulse Oximetry (%) 98 Oxygen Delivery Method Room Air Intake Visit Reasons: est/ right knee pain/twisted/swelling Intake Note: Patient presents today to establish care with concerns for her right knee. 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 She twisted it and ever since feels that it is swollen and painful. Anterior and posterior pain. Denies redness. No calf pain. SLE: Follows at [facility]. Complicated by lupus percarditis. Had holter reassuring. Also has former diagnosis of fibromyalgia. Flares of myalgia, arthralgia, radiculopathy. On cellcept, HCQ. Unable to sustain daily work. Bipolar: Fairly stable. Depression can worsen intermittently. Sometimes overwhelmed with multiple medical issues. Sees psychiatry and therapist. She is on lamictal, ativan. A lot of issues with constipation. She is taking miralax 2x daily, reglan prn. She was seen in the ER for abdominal pain. GI-recent EGD. Considering colonoscopy. ER visit for abdominal pain yesterday. Some interval improvement. CT reviewed and reassuring At our last visit requested referral to pulm and breathing studies. She was evaluated last fall in the ER for shortness of breath. Using an albuterol inhaler was very helpful for symptoms. She stopped smoking marijuana. She cut back on cigarettes -down to 4-5 per day ROS see HPI PHYSICAL EXAM: GENERAL: Alert and oriented x 3. NAD EYES: EOMI. Anicteric. HENT: Moist mucous membranes. LUNGS: Clear to auscultation bilaterally. CARDIOVASCULAR: Regular rate and rhythm. No murmur. No JVD. ABDOMEN: Soft, non-tender MSK: Tenderness palpation posterior knee EXTREMITIES: No edema. Non-tender. SKIN: No rashes or lesions. Warm. NEUROLOGIC: No focal neurological deficits. CN II-XII grossly intact PSYCHIATRIC: Cooperative. Appropriate mood and affect [facility] Medical History (Updated 08/09/24 @ 13:21 by Sunni Earl MD) Vitamin D deficiency Sphincter of Oddi dysfunction SLE (systemic lupus erythematosus related syndrome) Restless leg syndrome Raynauds disease Radial styloid tenosynovitis Pericarditis Obstructive sleep apnea Microcytic hypochromic anemia HTN (hypertension) Gestational diabetes Fibromyalgia Depression Cervical lymphadenopathy Bipolar disorder Acanthosis Abdominal pain Surgical History (Updated 05/10/24 @ 13:36 by Kimber Carson CMA) H/O wisdom tooth extraction S/P ERCP Family History (Updated 05/10/24 @ 13:44 by Kimber Carson CMA) Father Bipolar 1 disorder Substance use Mother Alcoholism Other FH: mental illness Social History (Updated 06/10/24 @ 13:16 by Kanchan Cabrera CMA) Housing: Apartment Patient Tobacco Use Status: Current everyday Tobacco user Tobacco use type: Cigarette Cigarettes Per Day: 10 Years Smoked: 12 e-Cigarette/Vaping Use: Never Used Second Hand Smoke Exposure: Yes service: No Current occupational status: employed and unemployed Cognitive needs: No Hearing needs: No Vision needs: No Questionnaire PHQ-9 Over the last 2 weeks, how often have you been bothered by any of the following problems? 1. Little interest or pleasure in doing things: several days 2. Feeling down, depressed, or hopeless: several days 3. Trouble falling or staying asleep, or sleeping too much: several days 4. Feeling tired or having little energy: several days 5. Poor appetite or overeating: several days 6. Feeling bad about yourself - or that you are a failure or have let yourself or your family down: several days 7. Trouble concentrating on things, such as reading the newspaper or watching television: several days 8. Moving or speaking so slowly that other people could have noticed. Or the opposite - being so fidgety or restless that you have been moving around a lot more than usual: several days 9. Thoughts that you would be better off or of hurting yourself in some way: several days Total score: 9 Depression Screening Interpretation: Positive Depression Screening Follow-up: Existing condition Depression Screening Done: Yes 36220 - PHQ-9 Billing: Yes Source: Developed by Drs. Remigio Swan, Juliana Milan, Cristian Tripathi and colleagues, with an educational helena from [employer]. Thrive Questionnaire Date Thrive assessed: 08/07/24 I am a: Patient What is your living situation today?: I have a steady place to live Within the past 12 months, did the food you bought not last and you didn't have the money to get more?: I choose not to answer this question Within the past 12 months, did you worry whether your food would run out before you got money to buy more?: I choose not to answer this question Do you have trouble paying for medicines?: I choose not to answer this question Do you have trouble getting transportation to medical appointments?: I choose not to answer this question Do you have trouble paying your heating and electricity bill?: I choose not to answer this question Do you have trouble taking care of your child, family member or friend?: I choose not to answer this question Do you have trouble with day-to-day activities such as bathing, preparing meals, shopping, managing finances, etc.?: I choose not to answer this question Are you currently unemployed and looking for a job?: No Are you interested in more education?: No Please select the resources that you would like help with: None Currently or been in a relationship where the following occur: No concerns reported THRIVE Score: 0 AUDIT C Alcohol Use Questionnaire (AUDIT-C) 1. How often do you have a drink containing alcohol?: Never 3. How often do you have six or more drinks on one occasion?: Never Total Score: 0 MAHAMED-7 AMB Questionnaire MAHAMED-7 Date MAHAMED - 7 assessed: 08/09/24 Feeling nervous, anxious, or on edge: 1 = Several days Not being able to stop or control worryin = Several days Worrying too much about different things: 1 = Several days Trouble relaxin = Several days Being so restless that it is hard to sit still: 1 = Several days Becoming easily annoyed or irritable: 1 = Several days Feeling afraid as if something awful might happen: 1 = Several days Total MAHAMED-7 score (0-4 normal; 5-9 mild; 10-14 moderate; 15-21 severe): 7 Source: Developed by Drs. Remigio Swan, Juliana Milan, Cristian Tripathi and colleagues, with an educational helena from [employer]. MAHAMED-7 Assessment Billing MAHAMED-7 Assessment Tool: MAHAMED-7 Assessment 89611 Physical exam (Primary Care) Vital Signs: Last Vital Signs Temp 98.6 F 08/09/24 10:25 Pulse 82 08/09/24 10:25 Resp 12 08/09/24 10:25 BP 164/95 H 08/09/24 10:25 Pulse Ox 98 08/09/24 10:25 Oxygen Delivery Method Room Air 08/09/24 10:25 BMI result Body Mass Index 46.1 Tobacco/Smoking Status: Tobacco use Status Tobacco use date assessed 05/10/24 08/09/24 10:25 Patient Tobacco Use Status Current everyday Tobacco 08/09/24 10:25 Tobacco use type Cigarette 08/09/24 10:25 e-Cigarette/Vaping Use Never Used 08/09/24 10:25 PHQ-9: PHQ-9 Score PHQ-9: Total score 9 08/09/24 12:50 Depression Screening Interpretation: Positive Depression Screening Follow-up: Existing condition Thrive Assessment: Date of Thrive Assessment Date Thrive assessed 08/07/24 08/09/24 10:25 Currently or been in a relationship where the following occur: No concerns reported Assessment and Plan Assessment & Plan (1) Right knee pain: Code(s): M25.561 - Pain in right knee Qualifiers: Chronicity: acute Qualified Code(s): M25.561 - Pain in right knee Plan: xray ordered Declines steroid. Suggest topicals Referred to ortho (2) Obesity: Code(s): E66.9 - Obesity, unspecified Qualifiers: Obesity type: due to excess calories Obesity classification: adult class 3 (BMI >= 40) Serious obesity comorbidity presence: unspecified whether serious comorbidity present Body mass index: BMI 40.0-44.9 Qualified Code(s): E66.01 - Morbid (severe) obesity due to excess calories; Z68.41 - Body mass index [BMI] 40.0-44.9, adult Plan: BMI 46.1. wegovy 0.25 sent Orders: Orders XR knee RT 3V Today M25.561 - Pain in right knee Referrals Orthopedics Referral M25.561 - Pain in right knee Medications: New Wegovy (semaglutide (weight loss)) administer weeks 1 through 4 of therapy 0.25 mg (0.5 mL) subcut QWEEK 2 mL 3RF NS tretinoin 0.1% 1 appl topical BEDTIME 45 grams 3RF Discontinued tirzepatide (Mounjaro) Discontinued Reason: Doctor's Order 2.5 mg (0.5 mL) subcut QWEEK 4 weeks 2 mL 0RF semaglutide (weight loss) (Wegovy) administer weeks 5 through 8 of therapy Discontinued Reason: Doctor's Order 0.5 mg (0.5 mL) subcut QWEEK 6 mL 3RF Coding Level of Care Code Est Pt Level 4 (58064) Diagnoses Acute pain of right knee M25.561 Chronicity: acute Class 3 severe obesity due to excess calories with body mass index (BMI) of 40.0 to 44.9 in adult, unspecified whether serious comorbidity present E66.01; Z68.41 Obesity type: due to excess calories Obesity classification: adult class 3 (BMI >= 40) Serious obesity comorbidity presence: unspecified whether serious comorbidity present Body mass index: BMI 40.0-44.9 Additional Codes MAHAMED-7 Assessment Billing - MAHAMED-7 Assessment Tool: MAHAMED-7 Assessment 66140 ([id number])
[2024-08-09 10:25] VITALS: BP 164/95; PULSE 82; RESP 12; TEMP 37; O2SAT 98; BMI 46.1
== END 2024-08-09 12:50 | disposition home or self-care (01) ==
PROVIDERS: PCP Internal Medicine; Visit Provider Internal Medicine
DX: M25.561 Pain in right knee (principal); E66.01 Morbid (severe) obesity due to excess calories; Z68.41 Body mass index [BMI] 40.0-44.9, adult

== ENCOUNTER → 2024-08-09 10:07 | Outpatient (BNVA) | payer BC, SELFPAY | PROVIDERS: PCP Internal Medicine; Visit Provider Internal Medicine | DX: M25.561 Pain in right knee (principal); E66.01 Morbid (severe) obesity due to excess calories; Z68.41 Body mass index [BMI] 40.0-44.9, adult | CPT/HCPCS: 96127 ==

== ENCOUNTER 2024-08-10 11:23 | Outpatient (REF) | payer BC, SELFPAY ==
--- NOTE | ~2024-08-10 | XR_ITS ---
EXAMINATION: XR KNEE, RIGHT CLINICAL INFORMATION: M25.561 - Pain in right knee COMPARISON: None available. TECHNIQUE: Four views of the right knee. FINDINGS: Normal bony mineralization. No fracture, dislocation, or focal bony abnormality. Normal alignment. Joint spaces are preserved. No significant arthritis. There is a small suprapatellar joint effusion suspected. There is no soft tissue abnormality. XR/XR knee RT 3V IMPRESSION: 1. No acute findings right knee. 2. Small suprapatellar joint effusion. Electronically signed by: Des Cleveland MD 10/19/2024 03:51 PM EST
== END 2024-08-10 11:24 | disposition home or self-care (01) ==
LOC: HO.XRAY 11:23
PROVIDERS: PCP Internal Medicine; Visit Provider Internal Medicine
DX: M25.561 Pain in right knee (principal)
CPT/HCPCS: 73562

== ENCOUNTER → 2024-08-10 11:28 | Outpatient (BNV) | payer BC, SELFPAY | PROVIDERS: PCP Internal Medicine; Visit Provider Radiology Diagnostic Radiology | DX: M25.561 Pain in right knee (principal) | CPT/HCPCS: 73562 ==

== ENCOUNTER 2024-08-24 12:48 | Outpatient (AMB) | payer BC, SELFPAY ==
[2024-08-24 12:50] VITALS: BMI 46.1
--- NOTE | 2024-08-24 12:50 | A.OFFVIS_ITS ---
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 She describes her pain as sharp and severe in nature. Her pain has gotten worse over the last 6 months in spite of continued non operative treatments. She has had cortisone injections in the past which gave her minimal relief. The patient does have a history of lupus. She does see a associate director regulatory affairs in [place]. The patient states that most of her knee pain is along the medial aspect of her knee. She states that the knee will give out several times per day. She has failed the last 6 weeks of conservative treatment. She has done physical therapy exercises which aggravated her pain. She has also tried Tylenol and anti-inflammatory medicines as well as muscle relaxants which gave her minimal relief. Allergies Opioids - Morphine Analogues Allergy (Severe, Verified 08/24/24 12:56) Vomiting Medication List - Last Reviewed 08/24/24 by BRENDA Quijano budesonide-formoterol 80-4.5 mcg/actuation (Symbicort) 2 puffs inhalation Q12H colchicine 0.6 mg PO BID cyclobenzaprine 10 mg PO BEDTIME famotidine 20 mg PO BID hydroxychloroquine 200 mg PO BID lamotrigine (Lamictal) 100 mg PO DAILY levonorgestrel (Liletta) intrauterine Linzess (linaclotide) 290 mcg PO QAM NS lorazepam 0.5 mg PO DAILY metoclopramide HCl (Reglan) 5 mg PO QIDACHS mycophenolate mofetil 3tabs in am/2tabs in the pm orally 2 times a day; propranolol 20 - 40 mg (1 - 2 x 20 mg) PO QPM tretinoin 0.1% 1 appl topical BEDTIME Wegovy (semaglutide (weight loss)) 0.25 mg (0.5 mL) subcut QWEEK NS PFSH Medical History (Updated 08/09/24 @ 13:21 by Sunni Earl MD) Vitamin D deficiency Sphincter of Oddi dysfunction SLE (systemic lupus erythematosus related syndrome) Restless leg syndrome Raynauds disease Radial styloid tenosynovitis Pericarditis Obstructive sleep apnea Microcytic hypochromic anemia HTN (hypertension) Gestational diabetes Fibromyalgia Depression Cervical lymphadenopathy Bipolar disorder Acanthosis Abdominal pain Surgical History (Updated 05/10/24 @ 13:36 by Kimber Carson CMA) H/O wisdom tooth extraction S/P ERCP Family History (Updated 05/10/24 @ 13:44 by Kimber Carson CMA) Father Bipolar 1 disorder Substance use Mother Alcoholism Other FH: mental illness Social History (Updated 06/10/24 @ 13:16 by Kanchan Cabrera CMA) Housing: Apartment Patient Tobacco Use Status: Current everyday Tobacco user Tobacco use type: Cigarette Cigarettes Per Day: 10 Years Smoked: 12 e-Cigarette/Vaping Use: Never Used Second Hand Smoke Exposure: Yes service: No Current occupational status: employed and unemployed Cognitive needs: No Hearing needs: No Vision needs: No Physical Exam Vital Signs: BMI result Body Mass Index 46.1 Const Other: Well-nourished well-developed very friendly female awake alert and oriented x3 in no acute distress Extrem Other: Bilateral lower extremity examination shows good capillary refill, no skin lesions noted, normal sensation light touch Right knee examination shows a mild effusion, minimal crepitus with range of motion, tenderness along her medial joint line, positive Karen's test, no instability Results Reviewed Results Reviewed: Standing full weight-bearing x-rays of the patient's right knee show minimal joint space narrowing, no acute bony abnormalities Assessment & Plan Assessment & Plan (1) Right knee pain: Code(s): M25.561 - Pain in right knee Category: Medical Qualifiers: Chronicity: acute Qualified Code(s): M25.561 - Pain in right knee Plan Ms. Gibson presents with progressively worsening right knee pain and mechanical symptoms most likely due to a tear of her medial meniscus. Thus, I will send the patient for an MRI of her right knee for further evaluation. I will see her back once the MRI is completed to discuss the findings and treatment options. Feel free to call me at any time should questions regarding her orthopedic management arise. Thank you very much for asking me to see this very friendly patient. I spent 21 minutes in reviewing the patient's records and imaging studies, seeing the patient and documenting in the medical record. Orders: Orders MR knee RT wo con Today M25.561 - Pain in right knee Coding Level of Care Code New Pt Level 3 (47228) Complex EM visit Add On G2631 Diagnoses Acute pain of right knee M25.561 Chronicity: acute
== END 2024-08-24 13:13 | disposition home or self-care (01) ==
PROVIDERS: PCP Internal Medicine; Visit Provider Orthopaedic Surgery
DX: M25.561 Pain in right knee (principal)
CPT/HCPCS: 99203

== ENCOUNTER → 2024-08-24 12:48 | Outpatient (BNVA) | payer BC, SELFPAY | PROVIDERS: PCP Internal Medicine; Visit Provider Orthopaedic Surgery ==

== ENCOUNTER 2024-09-25 08:48 | Outpatient (REF) | payer BC, SELFPAY ==
--- NOTE | ~2024-09-25 | MR_ITS ---
EXAMINATION: MR KNEE WITHOUT CONTRAST, RIGHT CLINICAL INFORMATION: Right knee COMPARISON: X-ray of the right knee July 2024 TECHNIQUE: MRI of the knee without contrast was performed using routine sequences on a high-field scanner. FINDINGS: MENISCI: Medial Meniscus: Intact Lateral Meniscus: There is irregular increased signal throughout the body and anterior horn of the meniscus extending from the tibial articular surface near the free edge to the periphery of the meniscus. A small meniscal cyst measuring approximately 5 mm transverse and 5 mm AP in 5 mm craniocaudal. LIGAMENTS: Cruciate: Intact Collateral: Intact EXTENSOR MECHANISM: Intact ARTICULAR CARTILAGE/BONE: Patellofemoral Compartment: Normal Medial Compartment: Normal Lateral Compartment: Normal JOINT FLUID AND BURSAE: There is a mild joint effusion and minimal synovitis. MR/MR knee RT wo con IMPRESSION: Tear of the lateral meniscus. Mild joint effusion Electronically signed by: Guzman Azar MD 10/14/2024 10:14 AM NICOLE
== END 2024-09-25 08:49 | disposition home or self-care (01) ==
LOC: HO.MRI 08:48
PROVIDERS: PCP Internal Medicine; Visit Provider Orthopaedic Surgery
DX: M25.561 Pain in right knee (principal)
CPT/HCPCS: 73721

== ENCOUNTER 2024-10-18 14:19 | Outpatient (AMB) | payer BC, SELFPAY ==
[2024-10-18 14:31] VITALS: BP 138/92; PULSE 108; O2SAT 98; BMI 45.8
--- NOTE | 2024-10-18 14:31 | A.OFFVIS_ITS ---
Vital Signs 10/18/24 14:31 Height 5 ft 5 in Weight 275 lb 4 oz BMI 45.8 BP 138/92 H Blood Pressure Location Rt brachial Position Sitting Pulse 108 H Pulse Source Pulse Oximeter Pulse Oximetry (%) 98 Oxygen Delivery Method Room Air Intake Visit Reasons: dyspnea on exertion: 6 month f/u Allergies Opioids - Morphine Analogues Allergy (Severe, Verified 10/18/24 14:35) Vomiting HPI HPI dyspnea on exertion: 6 month f/u: Details: Yojana is a pleasant 29 year old female, current 1/2 ppd smoker with 12 pack year history with underlying lupus, scleroderma, raynaud's, h/o pericardial effusion s/p pericardial window and recurrent pericarditis last November 2022. She is under the care of cardiology and rheumatology at [facility]. She previously reported good control of respiratory symptoms using Symbicort however has used inconsistently and has noticed an increase in left sided pleuritic discomfort as well as dry cough for the last few weeks. She notes an increase in palpitations with symbicort use and is interested in trialing another ICS/LABA. [facility] Medical History (Updated 08/09/24 @ 13:21 by Sunni Earl MD) Vitamin D deficiency Sphincter of Oddi dysfunction SLE (systemic lupus erythematosus related syndrome) Restless leg syndrome Raynauds disease Radial styloid tenosynovitis Pericarditis Obstructive sleep apnea Microcytic hypochromic anemia HTN (hypertension) Gestational diabetes Fibromyalgia Depression Cervical lymphadenopathy Bipolar disorder Acanthosis Abdominal pain Surgical History (Updated 05/10/24 @ 13:36 by Kimber Carson CMA) H/O wisdom tooth extraction S/P ERCP Family History (Updated 05/10/24 @ 13:44 by Kimber Carson CMA) Father Bipolar 1 disorder Substance use Mother Alcoholism Other FH: mental illness Social History Housing: Apartment Patient Tobacco Use Status: Current everyday Tobacco user Tobacco use type: Cigarette Cigarettes Per Day: 10 Years Smoked: 12 e-Cigarette/Vaping Use: Never Used Second Hand Smoke Exposure: Yes service: No Current occupational status: employed and unemployed Cognitive needs: No Hearing needs: No Vision needs: No Review of Systems Const Denies chills, Denies excessive sweating, Denies fever(s), Denies headache(s) and Denies night sweats Eyes Denies irritation and Denies itchy eyes ENT Reports Normal hearing present, Denies headache(s), Denies nasal congestion, Denies nasal discharge, Denies post nasal drip and Denies sore throat Card Denies claudication, Denies leg edema, Denies orthopnea and Denies paroxysmal nocturnal dyspnea Resp Denies chest congestion, Denies excessive phlegm production, Denies pain on inspiration, Denies pain with cough, Denies stridor and Denies wheezing Musc Denies myalgias Neuro Reports Normal hearing present and Denies headache(s) Endo Denies excessive sweating Miller/Lymph Denies lymphadenopathy Aller/Immun Denies itchy eyes, Denies seasonal rhinorrhea and Denies wheezing Physical Exam Vital Signs: Last Vital Signs Pulse 108 H 10/18/24 14:31 BP 138/92 H 10/18/24 14:31 Pulse Ox 98 10/18/24 14:31 Oxygen Delivery Method Room Air 10/18/24 14:31 BMI result Body Mass Index 45.8 Const General: cooperative, healthy appearing, comfortable, no acute distress, well de veloped and alert Nutritional Appearance: obese Orientation/consciousness: patient oriented x3 Limitations: no limitations HEENT Head: Yes normal to inspection, Yes normocephalic and Yes atraumatic Ears: hearing grossly normal bilaterally and external ears normal Eyes General: appearance normal, both eyes and all related structures Eyelids: Yes eyelids normal Sclerae: sclerae normal EOM: EOMs intact bilaterally Neck Neck: Yes normal visual inspection and Yes no lymphadenopathy Lymphatic: no lymphadenopathy noted Chest Chest palpation & inspection: normal inspection of the chest Resp Effort & Inspection: normal respiratory effort, able to speak in complete sentences, no audible wheezes, no cough, no stridor, not tachypneic, no tripod positioning and no use of accessory muscles Auscultation: clear to auscultation bilaterally Cardio Jugular venous distension: no JVD Rate: regular rate Rhythm: regular rhythm Skin Other: warm, dry General skin exam: no rashes or lesions noted Neuro General: patient oriented x3 Cranial nerves: Yes Normal hearing present Cognition (Neuro): normal cognition Gait exam (Neuro): Normal gait present Extrem General: Yes normal to inspection, Yes capillary refill normal, Yes no clubbing, cyanosis or edema and Yes no pedal edema Psych Appearance: grossly normal and well kempt Speech and movement: Normal speech and movement present and Clear speech present Affect: normal affect Attitude: cooperative Thought process: Normal thought process present Thought content: Normal thought content present Insight: Good insight present (Psych) Judgement: Good judgement present (Psych) Assessment & Plan Assessment & Plan (1) Pleuritic pain: Code(s): R07.81 - Pleurodynia Category: Medical (2) Lupus (systemic lupus erythematosus): Code(s): M32.9 - Systemic lupus erythematosus, unspecified Category: Medical Qualifiers: Systemic lupus erythematosus type: unspecified Systemic lupus erythematosus organ involvement: pericarditis Qualified Code(s): M32.12 - Pericarditis in systemic lupus erythematosus (3) History of pericarditis: Code(s): Z86.79 - Personal history of other diseases of the circulatory system Category: Medical (4) Scleroderma: Code(s): M34.9 - Systemic sclerosis, unspecified Category: Medical (5) Obesity: Code(s): E66.9 - Obesity, unspecified Category: Medical Qualifiers: Obesity type: due to excess calories Obesity classification: adult class 3 (BMI >= 40) Serious obesity comorbidity presence: unspecified whether serious comorbidity present Body mass index: BMI 40.0-44.9 Qualified Code(s): E66.01 - Morbid (severe) obesity due to excess calories; Z68.41 - Body mass index [BMI] 40.0-44.9, adult Plan Yojana reports increased palpitations with symbicort leading to inconsistent use, will trial Breo. She also reports increased pleuritic discomfort, will send for chest CT given persistent pleuritic pain, currently on hydroxchloroquine, to rule out underlying inflammatory etiologies related to lupus. Recent cardiac evaluation unremarkable. We discussed smoking cessation which she is working towards. All questions were answered and patient is in agreement of plan. Will follow up in 3 months or sooner if needed. Orders: Orders CT chest wo IV con 10/18/24 R07.81 - Pleurodynia Medications: New fluticasone furoate-vilanterol 100-25 mcg/dose (Breo Ellipta) 1 inh inhalation DAILY 60 ea 3RF fluticasone furoate-vilanterol 100-25 mcg/dose (Breo Ellipta) 1 inh inhalation DAILY 180 ea 1RF Coding Level of Care Code Est Pt Level 4 (26593) Diagnoses Pleuritic pain R07.81 Systemic lupus erythematosus (SLE) with pericarditis, unspecified SLE type M32.12 Systemic lupus erythematosus type: unspecified Systemic lupus erythematosus organ involvement: pericarditis History of pericarditis Z86.79 Scleroderma M34.9 Class 3 severe obesity due to excess calories with body mass index (BMI) of 40.0 to 44.9 in adult, unspecified whether serious comorbidity present E66.01; Z68.41 Obesity type: due to excess calories Obesity classification: adult class 3 (BMI >= 40) Serious obesity comorbidity presence: unspecified whether serious comorbidity present Body mass index: BMI 40.0-44.9
== END 2024-10-18 15:22 | disposition home or self-care (01) ==
PROVIDERS: PCP Internal Medicine; Visit Provider Nurse Practitioner Family
DX: R07.81 Pleurodynia (principal); M32.12 Pericarditis in systemic lupus erythematosus; Z86.79 Personal history of other diseases of the circulatory system; M34.9 Systemic sclerosis, unspecified; E66.01 Morbid (severe) obesity due to excess calories; Z68.41 Body mass index [BMI] 40.0-44.9, adult
CPT/HCPCS: 99214

== ENCOUNTER → 2024-10-18 14:19 | Outpatient (BNVA) | payer BC, SELFPAY | PROVIDERS: PCP Internal Medicine; Visit Provider Nurse Practitioner Family ==

== ENCOUNTER 2024-10-28 13:36 | Outpatient (AMB) | payer BC, SELFPAY ==
--- NOTE | 2024-10-28 13:44 | A.OFFPC_ITS ---
Vital Signs 10/28/24 13:45 Height 5 ft 5 in Weight 277 lb 8 oz BMI 46.2 BP 136/78 Blood Pressure Location Rt brachial Position Sitting Pulse 82 Pulse Source Pulse Oximeter Pulse Oximetry (%) 99 Oxygen Delivery Method Room Air Intake Visit Reasons: Cyst popped /Fu medication Intake Note: Cyst on groin. Anesthesia Resident Required: No Allergies Opioids - Morphine Analogues Allergy (Severe, Verified 10/28/24 13:44) Vomiting Tobacco use date assessed: 05/10/24 Dental Screening Dental Screen Date: 05/10/24 HPI HPI Comments History of Present Illness0 Details This is a 29 year old female with a past medical history of SLE, scleroderma, anxiety, bipolar depression, SOFYA presenting for follow up Recently dealing with small boil/ingrown hairs over the pubic area near the groin. They have recently opened and she has had some scant drainage. They are painful at times. SLE: Follows at [facility]. Complicated by lupus percarditis. Had holter reassuring. Also has former diagnosis of fibromyalgia. Flares of myalgia, arthralgia, radiculopathy. On cellcept, HCQ. Unable to sustain daily work. Following with ortho for knee pain Bipolar: Fairly stable. Depression can worsen intermittently. Sometimes overwhelmed with multiple medical issues. Sees psychiatry and therapist. She is on lamictal, ativan. A lot of issues with constipation. She is taking miralax 2x daily, reglan prn. She was seen in the ER for abdominal pain. GI-recent EGD. Considering colonoscopy. ER visit for abdominal pain yesterday. Some interval improvement. CT reviewed and reassuring At our last visit requested referral to pulm and breathing studies. She was evaluated last fall in the ER for shortness of breath. Using an albuterol inhaler was very helpful for symptoms. She stopped smoking marijuana. She cut back on cigarettes -down to 4-5 per day ROS see HPI PHYSICAL EXAM: GENERAL: Alert and oriented x 3. NAD EYES: EOMI. Anicteric. HENT: Moist mucous membranes. LUNGS: Clear to auscultation bilaterally. CARDIOVASCULAR: Regular rate and rhythm. No murmur. No JVD. ABDOMEN: Soft, non-tender MSK: Tenderness palpation posterior knee EXTREMITIES: No edema. Non-tender. SKIN: Left pubic ~2 cm tender boils which are open not currently draining. No streaking erythema or excessive warmth NEUROLOGIC: No focal neurological deficits. CN II-XII grossly intact PSYCHIATRIC: Cooperative. Appropriate mood and affect [facility] Medical History (Updated 10/28/24 @ 14:00 by Sunni Earl MD) Vitamin D deficiency Sphincter of Oddi dysfunction SLE (systemic lupus erythematosus related syndrome) Restless leg syndrome Raynauds disease Radial styloid tenosynovitis Pericarditis Obstructive sleep apnea Microcytic hypochromic anemia HTN (hypertension) Gestational diabetes Fibromyalgia Depression Cervical lymphadenopathy Bipolar disorder Acanthosis Abdominal pain Surgical History H/O wisdom tooth extraction S/P ERCP Family History Father Bipolar 1 disorder Substance use Mother Alcoholism Other FH: mental illness Social History (Updated 10/28/24 @ 13:49 by Kimber Carson CMA) Housing: Apartment Alcohol intake: never Patient Tobacco Use Status: Current everyday Tobacco user Tobacco use type: Cigarette Cigarettes Per Day: 10 Years Smoked: 12 e-Cigarette/Vaping Use: Never Used Second Hand Smoke Exposure: Yes service: No Current occupational status: employed and unemployed Cognitive needs: No Hearing needs: No Vision needs: No Questionnaire Thrive Questionnaire Date Thrive assessed: 08/07/24 I am a: Patient What is your living situation today?: I have a steady place to live Within the past 12 months, did the food you bought not last and you didn't have the money to get more?: I choose not to answer this question Within the past 12 months, did you worry whether your food would run out before you got money to buy more?: I choose not to answer this question Do you have trouble paying for medicines?: I choose not to answer this question Do you have trouble getting transportation to medical appointments?: I choose not to answer this question Do you have trouble paying your heating and electricity bill?: I choose not to answer this question Do you have trouble taking care of your child, family member or friend?: I choose not to answer this question Do you have trouble with day-to-day activities such as bathing, preparing meals, shopping, managing finances, etc.?: I choose not to answer this question Are you currently unemployed and looking for a job?: No Are you interested in more education?: No Please select the resources that you would like help with: None Currently or been in a relationship where the following occur: No concerns reported THRIVE Score: 0 MAHAMED-7 AMB Questionnaire MAHAMED-7 Date MAHAMED - 7 assessed: 08/09/24 Source: Developed by Drs. Remigio Swan, Juliana Milan, Cristian Tripathi and colleagues, with an educational helena from [employer]. Physical exam (Primary Care) Vital Signs: Last Vital Signs Pulse 82 10/28/24 13:45 BP 136/78 10/28/24 13:45 Pulse Ox 99 10/28/24 13:45 Oxygen Delivery Method Room Air 10/28/24 13:45 BMI result Body Mass Index 46.2 Tobacco/Smoking Status: Tobacco use Status Tobacco use date assessed 05/10/24 10/28/24 13:47 Patient Tobacco Use Status Current everyday Tobacco 10/28/24 13:49 Tobacco use type Cigarette 10/28/24 13:49 e-Cigarette/Vaping Use Never Used 10/28/24 13:49 Thrive Assessment: Date of Thrive Assessment Date Thrive assessed 08/07/24 10/28/24 13:47 Currently or been in a relationship where the following occur: No concerns reported Coding Level of Care Code Est Pt Level 4 (15504) Diagnoses Boil L02.92 Assessment & Plan Assessment & Plan (1) Boil: Code(s): L02.92 - Furuncle, unspecified Category: Medical Plan: This will likely resolve with Doxycycline x 10 days plus conservative care- referral placed in case of persistent symptoms Orders: Referrals General Surgery Referral L02.92 - Furuncle, unspecified Medications: New doxycycline hyclate 100 mg PO BID 20 tabs 0RF clotrimazole 1% 1 appl topical BID 45 grams 0RF 4 weeks
[2024-10-28 13:45] VITALS: BP 136/78; PULSE 82; O2SAT 99; BMI 46.2
== END 2024-10-28 14:07 | disposition home or self-care (01) ==
PROVIDERS: PCP Internal Medicine; Visit Provider Internal Medicine
DX: L02.92 Furuncle, unspecified (principal)

== ENCOUNTER 2024-11-02 14:43 | Outpatient (AMB) | payer BC, SELFPAY ==
--- NOTE | 2024-11-02 14:43 | A.OFFVIS_ITS ---
Intake Visit Reasons: Tel- right knee MRI review Intake Note: Yojana is a 29 year old female who presents via telephone today to discuss her right knee MRI results. The patient describes her pain as sharp in nature. She states that she notices her pain most when she is squatting down or kneeling. She states that her knee will give out at times. She has tried Tylenol and anti-inflammatory medicines which gave her only mild relief. She does have a history of lupus. She sees a healthcare management located in [place]. Allergies Opioids - Morphine Analogues Allergy (Severe, Verified 10/28/24 13:44) Vomiting Medication List - Last Reconciled 11/02/24 by Zaid Moulton MD amlodipine 5 mg PO DAILY budesonide-formoterol 80-4.5 mcg/actuation (Symbicort) 2 puffs inhalation Q12H clotrimazole 1% 1 appl topical BID 4 weeks colchicine 0.6 mg PO BID cyclobenzaprine 10 mg PO BEDTIME doxycycline hyclate 100 mg PO BID famotidine 20 mg PO BID fluticasone furoate-vilanterol 100-25 mcg/dose (Breo Ellipta) 1 inh inhalation DAILY fluticasone furoate-vilanterol 100-25 mcg/dose (Breo Ellipta) 1 inh inhalation DAILY hydroxychloroquine 200 mg PO BID lamotrigine (Lamictal) 100 mg PO DAILY levonorgestrel (Liletta) intrauterine Linzess (linaclotide) 290 mcg PO QAM NS lorazepam 0.5 mg PO DAILY metoclopramide HCl (Reglan) 5 mg PO QIDACHS mycophenolate mofetil 3tabs in am/2tabs in the pm orally 2 times a day; propranolol 20 - 40 mg (1 - 2 x 20 mg) PO QPM tretinoin 0.1% 1 appl topical BEDTIME PFSH Medical History (Updated 10/28/24 @ 14:00 by Sunni Earl MD) Vitamin D deficiency Sphincter of Oddi dysfunction SLE (systemic lupus erythematosus related syndrome) Restless leg syndrome Raynauds disease Radial styloid tenosynovitis Pericarditis Obstructive sleep apnea Microcytic hypochromic anemia HTN (hypertension) Gestational diabetes Fibromyalgia Depression Cervical lymphadenopathy Bipolar disorder Acanthosis Abdominal pain Surgical History H/O wisdom tooth extraction S/P ERCP Family History Father Bipolar 1 disorder Substance use Mother Alcoholism Other FH: mental illness Social History (Updated 10/28/24 @ 13:49 by Kimber Carson CMA) Housing: Apartment Alcohol intake: never Patient Tobacco Use Status: Current everyday Tobacco user Tobacco use type: Cigarette Cigarettes Per Day: 10 Years Smoked: 12 e-Cigarette/Vaping Use: Never Used Second Hand Smoke Exposure: Yes service: No Current occupational status: employed and unemployed Cognitive needs: No Hearing needs: No Vision needs: No Physical Exam Const Other: No physical examination was performed today Telehealth Telehealth Telehealth Platform: Telephone Location of provider rendering services: practice address Location of patient: address on file Patient Identification confirmed using: Name, : Yes Telehealth method: voice only Patient verbally consented to treatment: Yes Patient verbally consented to billing insurance company: Yes Patient informed of any privacy concerns related to visit: Yes Minutes spent on Phone/Video with Pt.: 14 Results Reviewed Results Reviewed: MRI of the patient's right knee shows a mild to moderate effusion, intrasubstance tear of the lateral meniscus, thickened plica Assessment & Plan Assessment & Plan (1) Right knee pain: Code(s): M25.561 - Pain in right knee Category: Medical Qualifiers: Chronicity: acute Qualified Code(s): M25.561 - Pain in right knee Plan Ms. Gibson presents with right knee pain and mechanical symptoms due to a lateral meniscus tear and plica syndrome. I discussed with the patient the treatment options. I did send her a prescription to go to formal physical therapy. Activity modifications were discussed at length with the patient. She will follow up with me on an as-needed basis should her symptoms not plateau at an unacceptable level over the next few months. At that time we will further discuss the risks and benefits from cortisone injection therapy versus arthroscopic surgery. Feel free to call me at any time should questions regarding her orthopedic management arise. Orders: Orders PT Evaluation and Treatment Today M25.561 - Pain in right knee Coding Level of Care Code Tele Est Pt Level 3 (81248) Complex EM visit Add On G2211 Diagnoses Acute pain of right knee M25.561 Chronicity: acute
== END 2024-11-02 14:50 | disposition home or self-care (01) ==
LOC: HO.HOS 14:43
PROVIDERS: PCP Internal Medicine; Visit Provider Orthopaedic Surgery
DX: M25.561 Pain in right knee (principal)
CPT/HCPCS: 99442

== ENCOUNTER → 2024-11-02 14:43 | Outpatient (BNVA) | payer BC, SELFPAY | PROVIDERS: PCP Internal Medicine; Visit Provider Orthopaedic Surgery ==

== ENCOUNTER 2024-12-08 07:16 | Outpatient (REF) | payer BC, SELFPAY ==
--- NOTE | ~2024-12-08 | CT_ITS ---
EXAMINATION: CT CHEST WITHOUT IV CONTRAST INDICATION: R07.81 - Pleurodynia COMPARISON: Correlation is made with an outside chest CT dated 03/11/2024. TECHNIQUE: Helical CT scan of the chest was performed without intravenous contrast. Coronal and sagittal reformatted images were generated and reviewed. This CT exam was performed with one or more of the following dose reduction techniques: automated exposure control, adjustment of the mA and/or kV according to patient size, use of iterative reconstruction technique. DLP: 254 mGy-cm CHEST: THYROID: The thyroid is unremarkable. LUNGS:The lungs are clear. There are no pulmonary nodules or airspace opacities. MEDIASTINUM: There is no mediastinal lymphadenopathy. Amorphous soft tissue density in the anterior mediastinum is unchanged and likely represents residual thymus. JOHANA: Evaluation of the hilar regions is limited by lack of intravenous contrast material. CARDIOVASCULATURE: The heart is normal in size. There is no pericardial effusion. The thoracic aorta is normal in caliber. DEGREE OF CORONARY CALCIFICATION: none PLEURA: There is no pleural effusion. No pneumothorax. MAIN AIRWAYS: The mainstem bronchi and proximal branches are patent. AXILLA: There is no axillary lymphadenopathy. BONES AND SOFT TISSUES: Unremarkable UPPER ABDOMEN: The visualized portions of the liver, spleen, and adrenals have an unremarkable appearance. CT/CT chest wo IV con IMPRESSION: Unremarkable unenhanced CT of the chest. Electronically signed by: Remigio Jauregui MD 12/08/2024 08:41 AM [facility]
== END 2024-12-08 07:17 | disposition home or self-care (01) ==
LOC: HO.CT 07:16
PROVIDERS: PCP Internal Medicine; Visit Provider Nurse Practitioner Family
DX: R07.81 Pleurodynia (principal)
CPT/HCPCS: 71250

== ENCOUNTER → 2024-12-08 07:17 | Outpatient (BNV) | payer BC, SELFPAY | PROVIDERS: PCP Internal Medicine; Visit Provider Radiology Diagnostic Radiology | DX: R07.81 Pleurodynia (principal) | CPT/HCPCS: 71250 ==

== ENCOUNTER 2024-12-14 13:35 | Outpatient (AMB) | payer BC, SELFPAY ==
--- NOTE | 2024-12-14 13:38 | AM.OFFWIN_ITS ---
Intake Vital Signs 12/14/24 13:41 Height 5 ft 5 in Weight 275 lb BMI 45.8 BP 120/70 Blood Pressure Location Rt brachial Position Sitting Respiration 13 Pulse 111 H Pulse Source Pulse Oximeter Temp 98.0 F Temp Source Oral Pulse Oximetry (%) 98 Oxygen Delivery Method Room Air Intake Visit Reasons: Cold symtoms Intake Note: Patient complaining of chest congestion, runny nose, headache, coughing, earache on both ears, and feeling tired x 1 week. Patient Tobacco Use Status: Current everyday Tobacco user Allergies Opioids - Morphine Analogues Allergy (Severe, Verified 12/14/24 13:54) Vomiting Medication List - Last Reconciled 12/14/24 by Ashely Mc, YARD ATTENDANT- amlodipine 5 mg PO DAILY budesonide-formoterol 80-4.5 mcg/actuation (Symbicort) 2 puffs inhalation Q12H clotrimazole 1% 1 appl topical BID 4 weeks colchicine 0.6 mg PO BID cyclobenzaprine 10 mg PO BEDTIME famotidine 20 mg PO BID fluticasone furoate-vilanterol 100-25 mcg/dose (Breo Ellipta) 1 inh inhalation DAILY fluticasone furoate-vilanterol 100-25 mcg/dose (Breo Ellipta) 1 inh inhalation DAILY hydroxychloroquine 200 mg PO BID lamotrigine (Lamictal) 100 mg PO DAILY levonorgestrel (Liletta) intrauterine Linzess (linaclotide) 290 mcg PO QAM NS lorazepam 0.5 mg PO DAILY metoclopramide HCl (Reglan) 5 mg PO QIDACHS mycophenolate mofetil 3tabs in am/2tabs in the pm orally 2 times a day; propranolol 20 - 40 mg (1 - 2 x 20 mg) PO QPM tretinoin 0.1% 1 appl topical BEDTIME Do you need a note to return to daycare/school/sports/work: No HPI HPI Comments History of Present Illness Details History of Present Illness The patient is a 29-year-old female presenting with symptoms of an upper respiratory infection characterized by significant nasal congestion, runny nose, headache, cough, and bilateral earache. These symptoms have persisted for the past week. She reports being very fatigued over this period. 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 The patient's symptoms have not improved in tandem with her 's recovery from a similar illness. The patient's systemic lupus erythematosus (SLE) has been in remission for over a year, and she is wary of infections that could exacerbate her condition. . Additionally, she had a chest CT scan the previous week, which did not show any acute findings at the time - she was feeling well @ this time. The patient mentions being immunocompromised and expresses concern over the potential for relapse. Her current medications include inhalers, and she denies experiencing shortness of breath. Despite her current symptoms, her lupus remains inactive. 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 Exam: Awake alert NAD, mildly ill appearing Sclera clear bilat, conjunctiva injected bilat Nares w mucoid d/c, turbinates erythematous, no sinus tenderness with palpation bilat TM intact + congestion bilat R>L MMM, pharynx WNL Tachycardic, regular rythtym LS w/ crackles LLL Results - Labs: Pending swab results for influen za, COVID-19, and RSV & CXR Plan - Obtain a nasal swab for influenza, COV ID-19, and RSV testing. - Conduct a chest x-ray to evaluate curr ent lung status, aiming to return results within a day. - The patient will utilize [facility] for prescriptions, as noted in her records. Patient was informed and verbally consented to the use of an ambient scribe for clinic note documentation during this visit. Discussion Notes I discussed with the patient the plan to swab for influenza, COVID-19, and RSV to check for viral infections that could explain her symptoms. As the patient complained of significant lung pain and has concerns about potential pneumonia progression, I recommended a chest x-ray at our affiliated office in [place], ensuring rapid turnaround for results. We agreed on using the patient portal for communication regarding lab results. I explained the benefit of quicker access to results if the x-ray is done at the recommended location, due to shorter processing times. We also talked about the option of using the [facility] for any necessary prescriptions. Patient Instructions - Proceed to the [place] office for you r chest x-ray to ensure rapid results today. - Continue monitoring symptoms and use i nhalers as prescribed. - Expect to receive nasal swab results v ia the patient portal by the end of the day. - Avoid exposure to individuals with act kyle infections to reduce the risk of compromising lupus remission. - Follow up on the patient portal for fu rther instructions after diagnostic results return. Total time spent caring for the patient today was 30 minutes. This includes time spent before the visit reviewing the chart, time spent during the visit, and time spent after the visit on documentation, reviewing laboratory results, diagnostic imaging, medications, performing a medically necessary evaluation, counseling on diagnoses, care coordination, ordering appropriate tests, ordering appropriate medications, review of tests performed by other providers, reporting test results with the patient, communication with other healthcare providers. [facility] Medical History (Updated 12/14/24 @ 14:01 by Ashely Mc, [facility]) Vitamin D deficiency Sphincter of Oddi dysfunction SLE (systemic lupus erythematosus related syndrome) Restless leg syndrome Raynauds disease Radial styloid tenosynovitis Pericarditis Obstructive sleep apnea Microcytic hypochromic anemia HTN (hypertension) Gestational diabetes Fibromyalgia Depression Cervical lymphadenopathy Bipolar disorder Acanthosis Abdominal pain Surgical History H/O wisdom tooth extraction S/P ERCP Family History Father Bipolar 1 disorder Substance use Mother Alcoholism Other FH: mental illness Social History (Updated 10/28/24 @ 13:49 by Kimber Carson CMA) Housing: Apartment Alcohol intake: never Patient Tobacco Use Status: Current everyday Tobacco user Tobacco use type: Cigarette Cigarettes Per Day: 10 Years Smoked: 12 e-Cigarette/Vaping Use: Never Used Second Hand Smoke Exposure: Yes service: No Current occupational status: employed and unemployed Cognitive needs: No Hearing needs: No Vision needs: No Physical Exam Vital Signs: Last Vital Signs Temp 98.0 F 12/14/24 13:41 Pulse 111 H 12/14/24 13:41 Resp 13 12/14/24 13:41 BP 120/70 12/14/24 13:41 Pulse Ox 98 12/14/24 13:41 Oxygen Delivery Method Room Air 12/14/24 13:41 BMI result Body Mass Index 45.8 Assessment & Plan Assessment & Plan (1) Flu-like symptoms: Code(s): R68.89 - Other general symptoms and signs Plan: . Plan . Orders: Orders SARS-CoV2/FLU/RSV Today R09.89 - Other specified symptoms and signs involving the circulatory and respiratory systems, R68.89 - Other general symptoms and signs XR chest 2V Today R68.89 - Other general symptoms and signs Coding Level of Care Code Est Pt Level 4 (05313) Diagnoses Flu-like symptoms R68.89
[2024-12-14 13:41] VITALS: BP 120/70; PULSE 111; RESP 13; TEMP 36.7; O2SAT 98; BMI 45.8
--- OUTSIDE RECORDS SUMMARY | 2024-12-14 15:44 | XMS_ITS | Clinical Summary ---
Author Organization [facility] Address [address] [place] [address] Care Team Providers Care Recovery Room Rn Name Role Phone Sunni Earl MD Primary Care Provider [phone] Encounters Date Type Department Care Team Description 09/27/2024 Telephone Obstetrics and Gynecology [facility] [address] [place] [id number] Madhuri Ascencio, JENNIFERM Cyst from Last 3 Months Surgical History Surgery Date Site/Laterality Comments WISDOM TOOTH EXTRACTION PROCEDURE: HISTORICAL WISDOM TEETH EXTRACTION CARDIAC SURGERY 04/2019 PROCEDURE: HISTORICAL HEART SURGERY(ASD,VSD,VALVES); COMMENT: pericardial window SECTION 2018 PROCEDURE: HISTORICAL CHOLECYSTECTOMY 05/09/2019 PROCEDURE: HISTORICAL CHOLECYSTECTOMY; COMMENT: Dr. Cardoso Medical History Medical History Date Comments Acanthosis nigricans 07/23/2015 DX:Acanthos is nigricans Varicose veins 07/23/2015 DX:Varicose vein s Lupus erythematosus 03/02/2018 DX:Lupus john thematosus SLE (systemic lupus erythema tosus) ([facility]) 03/02/2018 DX:SLE (systemic lupus eryth ematosus) ([facility]); COMMENT: 09/2017- started HCQ with Dr. Fry, + dsDNA and MEGHAN, neg TECHNICAL PLANNER, SM, SSA/SSB, normal C3/C4 Morbid obesity with BMI of 4 5.0-49.9, adult ([facility]) 07/11/2015 DX:Morbid obesity with BMI o f 45.0-49.9, adult ([facility]) Fibromyalgia 06/21/2020 DX:Fibromyalgia Pneumonia 06/21/2020 DX:Pneumonia; CO MMENT: Community acquired IP admit 05/20-05/23/20 Pericardial effusion 05/15/2019 DX:Pericard ial effusion; COMMENT: IP Admit 05/20 - 05/23/20- Pericardial effusion, IV Abx, whth resolution, 04/2019 Pericardial window Bipolar disorder (CMS/HCC) 07/23/2015 DX:Bi polar disorder (HCC); COMMENT: Follows with Dr Villafana Tobacco dependence 10/05/2013 DX:Tobacco de pendence Gestational diabetes 06/21/2020 DX:Gestatio nal diabetes; COMMENT: 2018 Family History Medical History Relation Name Comments Breast cancer Aunt bilateral; mat ernal aunt Hypertension Father tested at of dtr-no mutation for T.S.,BiPolar disorder Lung cancer Maternal Grandfather smoker; at age 72 Breast cancer Maternal Grandmother alive at age 73, 2015, Hypertension Hypertension Mother Other: eye cancer Other 1 paternal g r aunt Other: neuroendocrine cancer Other 2 paternal gr uncle- at age 71 Other: neuroendocrine cancer Other 3 paternal gr aunt; also lung ca; age 58 Other: neuroendocrine cancer Other 4 paternal 1st cousin once removed; at 39 Other: hepatitis Paternal Grandfather ali ve, 2015, no cancer Breast cancer Paternal Grandmother alive, dx 2014, Hypertension Depression Sister 1 Other: tuberous sclerosis Sister 2 se izure disorder Lung cancer Uncle smoker; at 55; in surgery Relation Name Status Comments Aunt Father Alive Maternal Grandfather Maternal Grandmother Alive Mother Alive Other 1 Other 2 Other 3 Other 4 Paternal Grandfather Alive Paternal Grandmother Alive Sister 1 Sister 2 Sister 3 Alive Sister 4 Alive Uncle Social History Tobacco Use Types Packs/Day Years Used Date Smoking Tobacco: Every Day Cigarettes Last attempted to quit: 05/22/2020 Smokeless Tobacco: Never Alcohol Use Standard Drinks/Week Comments Yes 0 (1 standard drink = 0.6 oz pur e alcohol) Sex and Gender Information Value Date Recorded Sex Assigned at Not on file Gender Identity Not on file Sexual Orientation Not on file Obstetrics History Last Filed Vital Signs Vital Sign Reading Time Taken Comments Blood Pressure 109/71 02/18/2023 3:42 PM EDT Sit ting L Arm Pulse 96 10/07/2022 9:31 AM EST Temperature - - Respiratory Rate - - Oxygen Saturation - - Inhaled Oxygen Concentration - - Weight 125 kg (275 lb) 03/24/2024 3:24 PM EDT Height 165.1 cm (5' 5 ) 03/24/2024 3:24 PM EDT Body Mass Index 45.76 03/24/2024 3:24 PM EDT Plan of Treatment Health Maintenance Due Date Last Done Comments Pneumococcal Vaccine: Pediatrics (0 to 5 Years) and At-Risk Patients (6 to 64 Years) (1 of 2 - PCV) 1999 Hepatitis A Vaccines (1 of 2 - Risk 2-dose series) 2012 DTaP,Tdap,and Td Vaccines (8 - Td or Tdap) 09/10/2020 09/10/2010, 06/07/2003, 08/22/1998, Additional history exists COVID-19 Vaccine (3 - Pfizer risk series) 09/05/2021 08/08/2021, 07/18/2021 Depression Screening 10/31/2022 HIV Screening 10/31/2022 Hepatitis C Screening 10/31/2022 Social Influencers of Health Screening 10/31/2022 Influenza Vaccine (#1) 2024 Cervical Cancer Screening: Pap Smear 02/18/2026 02/18/2023 Hepatitis B Vaccines Completed 01/29/1994, 1993, 1993 HIB Vaccines Completed 08/22/1994, 06/1993, 1993, Additional history exists IPV Vaccines Completed 03/21/1998, 07/26, 08/22/1994, Additional history exists MMR Vaccines Completed 03/21/1998, 08/22/1994 Meningococcal ACWY Vaccine Aged Out 04/09/2007 N o longer eligible based on patient's age to complete this topic HPV Vaccines Completed 08/30/2008, 05/23, 04/09/2007 Varicella Vaccines Completed 09/10/2010, 03/24/2000 RSV Immunization Patients Under 20 months Aged Out No longer eligible based on patient's age to complete this topic Procedures Procedure Name Priority Date/Time Associated Diagnosis Comments PAP SMEAR Routine 02/18/2023 from Last 3 Months or Most Recently Relevant to Health Maintenance Results * Pap smear (02/18/2023) 02/18/2023 Narrative HISTORICAL TESTING LAB RESULTING AGENCY - 03/02/2023 6:41 AM EDT [id number] THINPREP PAP, IMAGED: NEGATIVE FOR SQUAMOUS INTRAEPITHELIAL LESION AND MALIGNANCY . MATT LOBATO(ASCP) (CASE ELECTRONICALLY SIGNED 02 28 2023) ADEQUACY: SATISFACTORY ENDOCERVICAL/TRANSFORMATION ZONE COMPONENT ABSENT. SOURCE: THINPREP PAP HPV IF ASCUS, CERVICAL, IMAGED CLINICAL INFORMATION: HPV IF DIAGNOSIS OF ASCUS. HORMONES IUD, PAP HX NEGATIVE, [Z01.419] Kylie Mario DO LAB CYTOLOGY ORDERAB LES HISTORICAL TESTING LAB RESULTING AGENCY from Last 3 Months or Most Recently Relevant to Health Maintenance Care Teams Recovery Room Rn Relationship Specialty Start Date End Date Sunni Earl MD PCP - General Internal Medicine 01/30/22
--- OUTSIDE RECORDS SUMMARY | 2024-12-14 15:44 | XMS_ITS | Clinical Summary ---
Author Organization [facility] Address [address] [place] [address] Care Team Providers Care Bowling Alley Operator Name Role Phone Sunni Earl MD Primary Care Provider [phone] Allergies No known active allergies Medications Medication Sig Dispensed Refills Start Date End Date Status ibuprofen (ADVIL,MOTRIN) 600 MG tablet Take 600 mg by mouth every 6 (six) hours as needed for pain. 0 Active lamoTRIgine (LaMICtal) 100 MG tablet Take 100 mg by mouth daily. 0 Active LORazepam (ATIVAN) 0.5 MG tablet Take 0.5 mg by mouth every 8 (eight) hours as needed. 0 Active acetaminophen (TYLENOL) 325 MG tablet Take 650 mg by mouth every 6 (six) hours as needed for pain. 0 Active albuterol (PROVENTIL HFA;VENTOLIN HFA) 108 (90 Base) MCG/ACT inhaler Inhale 1 puff into the lungs every 4 (four) hours as needed for wheezing. 0 Active colchicine 0.6 MG tablet Take 0.6 mg by mouth daily. 0 Active DULoxetine (CYMBALTA) DR capsule 60 mg Take 60 mg by mouth daily. 0 Active hydroxychloroquine (PLAQUENIL) 200 MG tablet Take 200 mg by mouth 2 (two) times a day. 0 Active ondansetron (ZOFRAN-ODT) 4 MG disintegrating tablet Take 4 mg by mouth every 8 (eight) hours as needed for nausea. 0 Active ferrous sulfate 325 (65 FE) MG tablet Take 325 mg by mouth 2 (two) times a day. 0 Active Active Problems No known active problems Family History Medical History Relation Name Comments Cancer Maternal Aunt Cancer Maternal Grandfather Cancer Maternal Grandmother Cancer Paternal Grandmother Cancer Paternal Uncle Relation Name Status Comments Maternal Aunt Maternal Grandfather Maternal Grandmother Paternal Grandmother Paternal Uncle Social History Tobacco Use Types Packs/Day Years Used Date Smoking Tobacco: Former Cigarettes Q uit: 05/22/2020 Smokeless Tobacco: Never Alcohol Use Standard Drinks/Week Comments No 0 (1 standard drink = 0.6 oz pur e alcohol) Sex and Gender Information Value Date Recorded Sex Assigned at Not on file Gender Identity Not on file Sexual Orientation Not on file Last Filed Vital Signs Vital Sign Reading Time Taken Comments Blood Pressure 161/88 02/26/2022 11:50 AM EDT Pulse 78 02/26/2022 11:50 AM EDT Temperature 36.9 ??C (98.4 ??F) 02/26/2022 11:50 AM E DT Respiratory Rate - - Oxygen Saturation 100% 02/26/2022 11:50 AM EDT Inhaled Oxygen Concentration - - Weight 125.2 kg (276 lb) 02/26/2022 11:50 AM EDT Height - - Body Mass Index - - Plan of Treatment Health Maintenance Due Date Last Done Comments Hepatitis C Screening 1993 Depression Screening 2005 Preventative Health Evaluation 2011 Cervical Cancer Screening (Pap Smear) 2014 DTap / Tdap / Td (7 - Td or Tdap) 09/10/2020 09/10/2010, 08/22/1998, 03/21/1998, Additional history exists COVID-19 Vaccine ( season) 2024 08/08/2021, 07/18/2021 Influenza Vaccine (#1) 2024 2, 10/25/2021, 09/16/2018 Hepatitis B Vaccines Completed 01/29/1994, 1993, 1993 Pneumococcal Vaccine Aged Out 05/22/2020 No long er eligible based on patient's age to complete this topic RSV Ped < 20 months Aged Out No longe r eligible based on patient's age to complete this topic Care Teams Bowling Alley Operator Relationship Specialty Start Date End Date Sunni Earl MD PCP - General Internal Medicine 01/30/22
== END 2024-12-14 15:41 | disposition home or self-care (01) ==
PROVIDERS: PCP Internal Medicine; Visit Provider Nurse Practitioner Family
DX: R68.89 Other general symptoms and signs (principal)

== ENCOUNTER 2024-12-14 13:35 | Outpatient (REF) | payer BC, SELFPAY ==
--- NOTE | ~2024-12-14 | XR_ITS ---
EXAMINATION: XR CHEST CLINICAL INFORMATION: R68.89 - Other general symptoms and signs COMPARISON: 03/11/2024 from outside institution. TECHNIQUE: 2 views of the chest were obtained. FINDINGS: The cardiac, hilar, and mediastinal contours are normal. Findings demonstrate patchy lingular opacity suggestive of pneumonia. Lungs otherwise clear. There is no pneumothorax or pleural effusion. There is no focal osseous or soft tissue abnormality. XR/XR chest 2V IMPRESSION: Patchy opacity left lung base, likely in the lingula, concerning for pneumonia. No effusion. Electronically signed by: Des Cleveland MD 12/14/2024 03:11 PM [facility]
[2024-12-14 18:40] LABS: Influenza A PCR POSITIVE (Negative); Influenza B PCR NEGATIVE (Negative); Resp Syncy Virus RNA Qual PCR NEGATIVE (Negative); SARS COV2 PCR INHOUSE NEGATIVE (Negative)
== END 2024-12-14 13:36 | disposition home or self-care (01) ==
LOC: HO.HMGCX 13:35
PROVIDERS: PCP Internal Medicine; Visit Provider Nurse Practitioner Family
DX: J18.1 Lobar pneumonia, unspecified organism (principal); R09.89 Other specified symptoms and signs involving the circulatory and respiratory systems
CPT/HCPCS: 0241U; 71046

== ENCOUNTER → 2024-12-14 14:33 | Outpatient (BNV) | payer BC, SELFPAY | PROVIDERS: PCP Internal Medicine; Visit Provider Radiology Diagnostic Radiology | DX: R91.8 Other nonspecific abnormal finding of lung field (principal) | CPT/HCPCS: 71046 ==

== ENCOUNTER 2025-01-16 09:52 | Outpatient (AMB) | payer BC, SELFPAY ==
--- NOTE | 2025-01-16 09:55 | MHC.OFFVIS ---
Intake Visit Reasons: Right knee pain Intake Note: Yojana is a 29 year old female who presents with complaints of progressively worsening right knee pain. She describes her pain as sharp in nature. She has had cortisone injections given into her ankle in the past which gave her fairly good relief. She has not had an injection into her knee. She has tried physical therapy exercises which aggravated her pain. She states that she is currently in remission for her lupus. Allergies Opioids - Morphine Analogues Allergy (Severe, Verified 01/16/25 09:59) Vomiting Medication List - Last Reconciled 01/16/25 by Zaid Moulton MD amlodipine 5 mg PO DAILY azithromycin For 250 mg dose pack: take 500 mg today (day 1), then 250 mg for 4 days (days 2-5) PO 5 days budesonide-formoterol 80-4.5 mcg/actuation (Symbicort) 2 puffs inhalation Q12H clotrimazole 1% 1 appl topical BID 4 weeks colchicine 0.6 mg PO BID cyclobenzaprine 10 mg PO BEDTIME famotidine 20 mg PO BID fluticasone furoate-vilanterol 100-25 mcg/dose (Breo Ellipta) 1 inh inhalation DAILY fluticasone furoate-vilanterol 100-25 mcg/dose (Breo Ellipta) 1 inh inhalation DAILY hydroxychloroquine 200 mg PO BID lamotrigine (Lamictal) 100 mg PO DAILY levonorgestrel (Liletta) intrauterine Linzess (linaclotide) 290 mcg PO QAM NS lorazepam 0.5 mg PO DAILY metoclopramide HCl (Reglan) 5 mg PO QIDACHS mycophenolate mofetil 3tabs in am/2tabs in the pm orally 2 times a day; oseltamivir (Tamiflu) 75 mg PO Q12H 5 days prednisone 40 mg (2 x 20 mg) PO DAILY propranolol 20 - 40 mg (1 - 2 x 20 mg) PO QPM tretinoin 0.1% 1 appl topical BEDTIME PFSH Medical History (Updated 01/17/25 @ 07:42 by Zaid Moulton MD) Vitamin D deficiency Sphincter of Oddi dysfunction SLE (systemic lupus erythematosus related syndrome) Restless leg syndrome Raynauds disease Radial styloid tenosynovitis Pericarditis Obstructive sleep apnea Microcytic hypochromic anemia HTN (hypertension) Gestational diabetes Fibromyalgia Depression Cervical lymphadenopathy Bipolar disorder Acanthosis Abdominal pain Surgical History H/O wisdom tooth extraction S/P ERCP Family History Father Bipolar 1 disorder Substance use Mother Alcoholism Other FH: mental illness Social History (Updated 10/28/24 @ 13:49 by Kimber Carson CMA) Housing: Apartment Alcohol intake: never Patient Tobacco Use Status: Current everyday Tobacco user Tobacco use type: Cigarette Cigarettes Per Day: 10 Years Smoked: 12 e-Cigarette/Vaping Use: Never Used Second Hand Smoke Exposure: Yes service: No Current occupational status: employed and unemployed Cognitive needs: No Hearing needs: No Vision needs: No Physical Exam Const Other: Well-nourished well-developed very friendly female awake alert and oriented x3 in no acute distress Extrem Other: Right knee examination shows a minimal effusion, palpable crepitus with range of motion, pain with range of motion, no instability Office Procedures AMB Joint Injection/Aspiration Joint Injection/Aspiration Primary Site: right knee Prep: site was prepped using aseptic technique Injected: 40 mg of, DepoMedrol and 1% plain lidocaine Procedure: The patient tolerated the procedure well Coding 42898 - Large joint Procedure code (CPT) selection complete Results Reviewed Results Reviewed: X-rays of the patient's right knee taken previously show diffuse joint space narrowing, subchondral sclerosis, no acute bony abnormalities Assessment & Plan Assessment & Plan (1) Arthritis of right knee: Code(s): M17.11 - Unilateral primary osteoarthritis, right knee Category: Medical (2) Right knee pain: Code(s): M25.561 - Pain in right knee Category: Medical Qualifiers: Chronicity: acute Qualified Code(s): M25.561 - Pain in right knee Plan Ms. Gibson presents with right knee pain due to degenerative joint disease. The risks and benefits of a right knee cortisone injection discussed at length with the patient. The patient wished to proceed. She tolerated the injection well. She will continue with her activity modifications. She will contact me prior to her follow-up appointment in 3 months should any questions or concerns arise. Feel free to call me at any time should questions regarding her orthopedic management arise. I spent 21 minutes in reviewing the patient's records and imaging studies, seeing the patient and documenting in the medical record. Orders: Orders AMB Joint Injection/Aspiration 01/16/25 M17.11 - Unilateral primary osteoarthritis, right knee Coding Level of Care Code Est Pt Level 3 (40275) Complex EM visit Add On G2211 Diagnoses Arthritis of right knee M17.11 Acute pain of right knee M25.561 Chronicity: acute CPT Codes Coding - 45435 Large joint: 64656 - Large joint ([id number])
--- OUTSIDE RECORDS SUMMARY | 2025-01-16 10:54 | XMS_ITS | Clinical Summary ---
Author Organization [facility] Address [address] [place] [address] Care Team Providers Care Special Effects Artist Name Role Phone Sunni Earl MD Primary Care Provider [phone] Allergies No known active allergies Medications Medication [...] age to complete this topic Care Teams Special Effects Artist Relationship Specialty Start Date End Date Sunni Earl MD PCP - General Internal Medicine 01/30/22
--- OUTSIDE RECORDS SUMMARY | 2025-01-16 10:54 | XMS_ITS | Clinical Summary ---
Author Organization [facility] it Address [address] [place] [address] Care Team Providers Care Recovery Coach Name Role Phone Sunni Earl MD Primary Care Provider [phone] Surgical History Surgery Date Site/Laterality Comments WISDOM [...] john thematosus SLE (systemic lupus erythema tosus) ([facility]) 03/02/2018 DX:SLE (systemic lupus eryth ematosus) ([facility]); COMMENT: 09/2017- started HCQ with Dr. Fry, + dsDNA and MEGHAN, neg BOX MAKER PAPERBOARD, SM, SSA/SSB, normal C3/C4 Morbid obesity with BMI of 4 5.0-49.9, adult ([facility]) 07/11/2015 DX:Morbid obesity with BMI o f 45.0-49.9, adult ([facility]) Fibromyalgia 06/21/2020 DX:Fibromyalgia Pneumonia 06/21/2020 DX:Pneumonia; CO MMENT: Community acquired IP admit 05/20-05/23/20 Pericardial effusion 05/15/2019 DX:Pericard ial effusion; COMMENT: IP Admit 05/20 - 7/1/20- Pericardial effusion, IV Abx, whth resolution, 04/2019 [...] cancer Maternal Grandmother alive at age 73, 2014, Hypertension Hypertension Mother Other: eye cancer Other 1 paternal g r aunt Other: neuroendocrine cancer Other 2 paternal gr uncle- at age 71 Other: neuroendocrine cancer Other 3 paternal gr aunt; also lung ca; age 58 Other: neuroendocrine cancer Other 4 paternal 1st cousin once removed; at 39 Other: hepatitis Paternal Grandfather ali ve, 2014, no cancer Breast cancer Paternal Grandmother alive, dx 2013, Hypertension Depression Sister 1 Other: tuberous sclerosis [...] drink = 0.6 oz pur e alcohol) Comments Unknown Sex and Gender Information Value Date Recorded Sex Assigned at Not on file Legal Sex Female 7:15 AM EST Gender Identity Not on file Sexual Orientation [...] Maintenance Due Date Last Done Comments Hepatitis A Vaccines (1 of 2 - Risk 2-dose series) 2012 Pneumococcal Vaccine: Pediatrics (0 to 5 Years) and At-Risk Patients (6 to 64 Years) (1 of 2 - PCV) 2012 DTaP,Tdap,and Td Vaccines (8 - Td [...] 05/23, 04/09/2007 Varicella Vaccines Completed 09/10/2010, 03/24/2000 Meningococcal B Vacine Aged Out No lo nger eligible based on patient's age to complete this topic RSV Immunization Patients Under 20 months Aged Out No longer eligible based on patient's age to complete this topic Procedures Procedure Name Priority Date/Time Associated Diagnosis Comments PAP SMEAR Routine 02/18/2023 from Last 3 Months or Most Recently Relevant to Health Maintenance Results * Pap smear (02/18/2023) 02/18/2023 Narrative HISTORICAL TESTING LAB RESULTING AGENCY - 03/02/2023 6:41 AM EDT [id number] THINPREP PAP, IMAGED: NEGATIVE FOR SQUAMOUS INTRAEPITHELIAL LESION AND MALIGNANCY . MATT LOBATO(ASCP) (CASE ELECTRONICALLY SIGNED 02 28 2023) ADEQUACY: SATISFACTORY ENDOCERVICAL/TRANSFORMATION ZONE COMPONENT ABSENT. SOURCE: THINPREP PAP HPV IF ASCUS, CERVICAL, IMAGED CLINICAL INFORMATION: HPV IF DIAGNOSIS OF ASCUS. HORMONES IUD, PAP HX NEGATIVE, [Z01.419] Kylie Mario DO LAB CYTOLOGY ORDERABLES Final Result HISTORICAL TESTING LAB RESULTING AGENCY from Last 3 Months or Most Recently Relevant to Health Maintenance Care Teams Recovery Coach Relationship Specialty Start Date End Date Sunni Earl MD PCP - General Internal Medicine 01/30/22
== END 2025-01-16 10:17 | disposition home or self-care (01) ==
PROVIDERS: PCP Internal Medicine; Visit Provider Orthopaedic Surgery
DX: M17.11 Unilateral primary osteoarthritis, right knee (principal)
CPT/HCPCS: 20610; 99213

== ENCOUNTER → 2025-01-16 09:52 | Outpatient (BNVA) | payer BC, SELFPAY | PROVIDERS: PCP Internal Medicine; Visit Provider Orthopaedic Surgery | DX: M17.11 Unilateral primary osteoarthritis, right knee (principal) | CPT/HCPCS: 20610; J1010; J2003 ==

== ENCOUNTER 2025-01-25 14:01 | Outpatient (AMB) | payer BC, SELFPAY ==
--- NOTE | 2025-01-25 14:09 | A.OFFVIS_ITS ---
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: No Game Manager: Game Manager offered & declined Accompanied by: Self / Same As Patient Allergies Opioids - Morphine Analogues Allergy (Severe, Verified 01/25/25 14:17) Vomiting Medication List - Last Reconciled 01/25/25 by Aria Rosales LPN amlodipine 5 mg PO DAILY budesonide-formoterol 80-4.5 mcg/actuation (Symbicort) 2 puffs inhalation Q12H clotrimazole 1% 1 appl topical BID 4 weeks colchicine 0.6 mg PO BID cyclobenzaprine 10 mg PO BEDTIME famotidine 20 mg PO BID hydroxychloroquine 200 mg PO BID lamotrigine (Lamictal) 100 mg PO DAILY levonorgestrel (Liletta) intrauterine Linzess (linaclotide) 290 mcg PO QAM NS lorazepam 0.5 mg PO DAILY metoclopramide HCl (Reglan) 5 mg PO QIDACHS mycophenolate mofetil 3tabs in am/2tabs in the pm orally 2 times a day; propranolol 20 - 40 mg (1 - 2 x 20 mg) PO QPM tretinoin 0.1% 1 appl topical BEDTIME HPI HPI dyspnea on exertion: 6 month f/u: Details: Yojana is a pleasant 29 year old female, current smoker with 12 pack year history with underlying asthma, lupus, scleroderma, raynaud's, h/o pericardial effusion s/p pericardial window and recurrent pericarditis last November 2022. She is under the care of cardiology and [place] [facility] Since the last visit, she was treated for LLL pneumonia in November, treated with azithromycin with resolution of symptoms. Repeat CXR revealed resolution of PNA. She also notes a visit to [facility] ED with lupus flare with widespread rash, pleuritic discomfort and joint pain after PNA, treated with prednisone with resolution of symptoms. Shortly after resolution of symptoms she was seen by rheumatology who reportedly told patient her lupus was now in remission with follow up scheduled in 4 months. Today she reports respiratory symptoms are well controlled on Symbicort 2 inhalation daily and has had resolution of pleuritic discomfort. She does continue to smoke 1/2 ppd and is motivated to quit. PFSH Medical History (Updated 01/25/25 @ 19:22 by Yenny Sal NP) Vitamin D deficiency Sphincter of Oddi dysfunction SLE (systemic lupus erythematosus related syndrome) Restless leg syndrome Raynauds disease Radial styloid tenosynovitis Pericarditis Obstructive sleep apnea Microcytic hypochromic anemia HTN (hypertension) Gestational diabetes Fibromyalgia Depression Cervical lymphadenopathy Bipolar disorder Acanthosis Abdominal pain Surgical History H/O wisdom tooth extraction S/P ERCP Family History Father Bipolar 1 disorder Substance use Mother Alcoholism Other FH: mental illness Social History Housing: Apartment Alcohol intake: never Patient Tobacco Use Status: Current everyday Tobacco user Tobacco use type: Cigarette Cigarettes Per Day: 10 Years Smoked: 12 e-Cigarette/Vaping Use: Never Used Second Hand Smoke Exposure: Yes service: No Current occupational status: employed and unemployed Cognitive needs: No Hearing needs: No Vision needs: No Review of Systems Const Denies chills, Denies excessive sweating, Denies fever(s), Denies headache(s) and Denies night sweats Eyes Denies dry eyes, Denies irritation and Denies itchy eyes ENT Reports Normal hearing present, Denies headache(s), Denies nasal congestion, Denies nasal discharge, Denies post nasal drip and Denies sore throat Card Denies chest pain, Denies chest pain at rest, Denies chest pain with activity, Denies claudication, Denies leg edema, Denies dyspnea, Denies dyspnea on exertion, Denies orthopnea and Denies paroxysmal nocturnal dyspnea Resp Denies chest congestion, Denies cough, Denies excessive phlegm production, Denies pain on inspiration, Denies pain with cough, Denies dyspnea, Denies dyspnea on exertion, Denies stridor and Denies wheezing Musc Denies myalgias Neuro Reports Normal hearing present and Denies headache(s) Endo Denies excessive sweating Miller/Lymph Denies lymphadenopathy Aller/Immun Denies itchy eyes, Denies seasonal rhinorrhea and Denies wheezing Physical Exam Vital Signs: Last Vital Signs Pulse Ox 99 01/25/25 14:13 Oxygen Delivery Method Room Air 01/25/25 14:13 BMI result Body Mass Index 45.9 Const General: cooperative, healthy appearing, comfortable, no acute distress, well developed and alert Nutritional Appearance: obese Orientation/consciousness: patient oriented x3 Limitations: no limitations HEENT Head: Yes normal to inspection, Yes normocephalic and Yes atraumatic Ears: hearing grossly normal bilaterally and external ears normal Eyes General: appearance normal, both eyes and all related structures Eyelids: Yes eyelids normal Sclerae: sclerae normal EOM: EOMs intact bilaterally Neck Neck: Yes normal visual inspection and Yes no lymphadenopathy Lymphatic: no lymphadenopathy noted Chest Chest palpation & inspection: normal inspection of the chest Resp Effort & Inspection: normal respiratory effort, able to speak in complete sentences, no audible wheezes, no cough, no stridor, not tachypneic, no tripod positioning and no use of accessory muscles Auscultation: clear to auscultation bilaterally Cardio Jugular venous distension: no JVD Rate: regular rate Rhythm: regular rhythm Skin Other: warm, dry General skin exam: no rashes or lesions noted Neuro General: patient oriented x3 Cranial nerves: Yes Normal hearing present Cognition (Neuro): normal cognition Gait exam (Neuro): Normal gait present Extrem General: Yes normal to inspection, Yes capillary refill normal, Yes no clubbing, cyanosis or edema and Yes no pedal edema Psych Appearance: grossly normal and well kempt Speech and movement: Normal speech and movement present and Clear speech present Affect: normal affect Attitude: cooperative Thought process: Normal thought process present Thought content: Normal thought content present Insight: Good insight present (Psych) Judgement: Good judgement present (Psych) Results Reviewed Results Reviewed: [facility] Adult Primary [facility] [place] [id number] XRay Report Signed Patient: Yojana Koo MR#: [id number] : 1995 Acct:[id number] Age/Sex: 29 / F ADM Date: 12/14/24 Loc: HO.HMGCX Attending Dr: Ashely UP Ordering Physician: Ashely Mc Date of Service: 12/14/24 Procedure(s): XR chest 2V Accession Number(s): [id number] cc: Ashely Mc; Sunni Earl MD~ EXAMINATION: XR CHEST CLINICAL INFORMATION: R68.89 - Other general symptoms and signs COMPARISON: 03/11/2024 from outside institution. TECHNIQUE: 2 views of the chest were obtained. FINDINGS: The cardiac, hilar, and mediastinal contours are normal. Findings demonstrate patchy lingular opacity suggestive of pneumonia. Lungs otherwise clear. There is no pneumothorax or pleural effusion. There is no focal osseous or soft tissue abnormality. XR/XR chest 2V IMPRESSION: Patchy opacity left lung base, likely in the lingula, concerning for pneumonia. No effusion. Electronically signed by: Des Cleveland MD 12/14/2024 03:11 PM [facility] Dictated By: Des Cleveland MD Signed By: <Electronically signed by Des Cleveland MD in OV> 12/14/24 1511 DD/ 1433 TD/TT: 12/14/24 1435 End Matcher: Assessment & Plan Assessment & Plan (1) Asthma: Code(s): J45.909 - Unspecified asthma, uncomplicated Category: Medical (2) Pleuritic pain: Code(s): R07.81 - Pleurodynia Category: Medical (3) Lupus (systemic lupus erythematosus): Code(s): M32.9 - Systemic lupus erythematosus, unspecified Category: Medical Qualifiers: Systemic lupus erythematosus organ involvement: pericarditis Systemic lupus erythematosus type: unspecified Qualified Code(s): M32.12 - Pericarditis in systemic lupus erythematosus (4) History of pericarditis: Code(s): Z86.79 - Personal history of other diseases of the circulatory system Category: Medical (5) Scleroderma: Code(s): M34.9 - Systemic sclerosis, unspecified Category: Medical (6) Obesity: Code(s): E66.9 - Obesity, unspecified Category: Medical Qualifiers: Body mass index: BMI 40.0-44.9 Obesity classification: adult class 3 (BMI >= 40) Obesity type: due to excess calories Serious obesity comorbidity presence: unspecified whether serious comorbidity present Qualified Code(s): E66.01 - Morbid (severe) obesity due to excess calories; Z68.41 - Body mass index [BMI] 40.0-44.9, adult Plan Yojana reports good control of respiratory symptoms using Symbicort and albuterol MDI. We discussed smoking cessation which she is working towards however decreasing mood stabilizer so discussed waiting until after tapered off. All questions were answered and patient is in agreement of plan. Will follow up in 6 months or sooner if needed. Medications: New nicotine (polacrilex) 2 mg buccal Q2H 100 ea 0RF Refilled fluticasone furoate-vilanterol 100-25 mcg/dose (Breo Ellipta) 1 inh inhalation DAILY 60 ea 3RF Coding Level of Care Code Est Pt Level 4 (93519) Diagnoses Asthma J45.909 Pleuritic pain R07.81 Systemic lupus erythematosus (SLE) with pericarditis, unspecified SLE type M32.12 Systemic lupus erythematosus organ involvement: pericarditis Systemic lupus erythematosus type: unspecified History of pericarditis Z86.79 Scleroderma M34.9 Class 3 severe obesity due to excess calories with body mass index (BMI) of 40.0 to 44.9 in adult, unspecified whether serious comorbidity present E66.01; Z68.41 Body mass index: BMI 40.0-44.9 Obesity classification: adult class 3 (BMI >= 40) Obesity type: due to excess calories Serious obesity comorbidity presence: unspecified whether serious comorbidity present
[2025-01-25 14:13] VITALS: O2SAT 99; BMI 45.9
--- OUTSIDE RECORDS SUMMARY | 2025-01-25 16:54 | XMS_ITS | Data Portability ---
Author Organization [place] - [facility]ly [facility] Address [address] [place] [id number] Care Team Providers Care Expanded Duty Dental Assistant Name Role Phone LYRIC CENTENO Primary Care Provider Assessment Encounter Date Assessment Date Assessment LastModified by Organization Details LastModified Time 10/18/2020 10/18/2020 overview/history 25yo F pmhx fibromyalgia, and lupus on Plaquenil is seen for diarrhea, body aches, nasal congestion, and sore throat that began today. No abdominal pain or urinary symptoms. No hematochezia or melena. Denies fever, cough, or sob. No known sick contact. Exam: VSS patient well appearing Pharynx moist without any redness, swelling or exudates No cervical lymphadenopathy Heart and lung sounds clear Abdomen soft and non tender DDx viral gastroenteritis influenza COVID viral URI no signs of strep pharyngitis doubt bacterial sinusitis as symptoms ongoing for one day Work up/results rapid influenza neg COVID 19 pending Assessment and plan Patient slightly tachycardic (at her baseline as per the patient) non toxic appearing is seen today for one day of symptoms. Patient tested for influenza today which was negative. COVID test pending and patient will continue to isolate until she gets her results. Patient instructed to drink plenty of fluids. Precautions given to again seek care if she develops a fever, cough, cp, sob, or abdominal pain. She verbalized understanding and was agreeable with overall plan. Proper Personal Protective Equipment (PPE), including gloves, eye protection, N95 mask, gown, and the patient was seen outside at her request were donned and doffed appropriately and all equipment cleaned using approved technique with germicidal disposable wipes prior to and after care of this patient according to [facility]'s infection prevention protocols. Time On Scene with Patient: 00:27:47 [email or web address] Not available 10/18/2020 16:09:22 Plan of Treatment Reminders Order Date Submit Date Provider Last Modified By Organization Details Last Modified Time Details Appointments None recorded. Lab SARS CoV 2 RNA (COVID-19), QL, dining room server-PCR, respiratory specimen 2019 020 GARY [facility] (Centralized Electronic Ordering - All Locations), Patient Can Go To The Location Of Their Choice, [id number] 0 23:03:06 rapid flu (A+B) [email or web address] [facility], [address] [place], [address], 0 15:51:36 Referral None recorded. Procedures None recorded. Surgeries None recorded. Imaging None recorded. Medication Orders None recorded. Patient TargetsNo targets recorded. Patient Instructions Encounter Date Encounter Id Patient Instructions Last Modified By Organization Details Last Modified Time 10/18/2020 [id number] DRINK PLENTY OF FLUIDS YOUR FLU TEST TODAY WAS NEGATIVE YOU HAVE BEEN TESTED TODAY FOR COVID AND WE WILL CALL WITH THE RESULTS IN 2-4 DAYS CONTIKNUE TO ISOLATE AT HOME AGAIN SEEK IMMEDIATE CARE IF YOU DEVELOP A FEVER, ABDOMINAL PAIN, ARE UNABLE TO TOLERATE FOOD AND FLUIDS, DEVELOP A COUGH, CHEST PAIN OR SHORTNESS OF BREATHE PLEASE AGAIN SEEK MEDICAL CARE Thank you for your visit with [facility] today. We cannot always find the exact cause of your symptoms during your initial visit. Please follow up with your primary care provider or specialist to be rechecked or seek medical attention if your symptoms do not go away or get worse. If you develop any new or worsening symptoms and need after hours care, please go to nearest ER and/or call 911. If you have additional concerns or develop a change in your condition between 8am-10pm, please call [facility] at [phone] to help navigate your care. Not available 10/18/2020 15:51:14 Reason for Referral None Reported. Results Created Date Observation Date Name Description Value Unit Range Abnormal Flag Note LastModifiedBy Organization Detail LastModifiedTime 10/18/20 20 10/21/2020 SARS CoV 2 RNA (COVI D-19) , QL, dining room server-P CR, respi rator y speci men covid-19, VIOLETA Not Detec romina Refer ence range : Not Detec romina (NOTE ) This nucle ic acid ampli ficat ion test was devel fauzia and its perfo rmanc e alyssia cteri stics deter mined by [facility] at[facility]. Nucle ic acid ampli ficat ion tests inclu de PCR and TMA. This test has not been FDA clear ed or appro amy. This test has been autho rized by FDA under an Emerg ency Use Autho rizat ion (EUA) . This test is only autho rized for the durat ion of time the decla ratio n that circu mstan torri exist justi fying the autho rizat ion of the emerg ency use of in vitro diagn ostic tests for detec tion of SARS- CoV-2 virus and/o r diagn osis of COVID -19 infec tion under secti on 564(b )(1) of the Act, 21 U.S.C . 360bb b-3(b ) (1), unles s the autho rizat ion is termi nated or revok ed soone r. When diagn ostic testi ng is negat kyle, the possi bilit y of a false negat kyle resul t shoul d be consi dered in the shena xt of a patie nt's recen t expos ures and the prese nce of clini cholo signs and sympt oms consi stent with COVID -19. An indiv idual witho ut sympt oms of COVID - 19 and who is not zeb ing SARS- CoV-2 virus would expec t to have a negat kyle (not detec romina) resul t in this assay . TEST PERFO RMED BY [facility], STEPHAN POOLE Y Not Available [facility] (Centralized Electronic Ordering - All Locations) Patient Can Go To The Location Of Their Choice, [id number] 10/21/2020 23:03:06 10/18/20 20 10/18/2020 rapid flu (A+B) Flu A negati ve Not Available [facility] [address] [place] [address] [address], [place], [address], 10/18/2020 15:49:08 10/18/20 20 10/18/2020 rapid flu (A+B) Flu B negati ve Not Available [facility] [address] [place], [address], 10/18/2020 15:49:08 10/18/20 20 10/18/2020 rapid flu (A+B) Control Visual ized / Valid Not Available [facility] [address] [place], [address], 10/18/2020 15:49:08 Result Notes None recorded. Procedures Surgical History Date Name Laterality Status Provider Name and Address Organization Details Recorded Time pericardiostomy completed DOMITILA LEWIS [address] [place], [address], [place] [facility] 10/18/2020 15:36:46 Cholecystectomy completed DOMITILA LEWIS [address] [place], [address], [place] [facility] 10/18/2020 15:36:55 section completed DOMITILA LEWIS [address] [place], [address], [place] [facility] 10/18/2020 15:37:04 Imaging Results None recorded. Procedure Notes None recorded. Medical Equipment None Reported. Allergies No known drug allergies Medications Name Sig Start Date Stop Date Status Note LastModified by Organization Details LastModified Time amoxicillin 500 mg capsule TAKE TWO CAPSULES BY MOUTH THREE TIMES A DAY FOR 5 DAYS active Not Available Not Available No t Available acetaminoph en 325 mg tablet TAKE 2 TABLETS BY MOUTH EVERY 6 HOURS FOR 5 DAYS NEEDED FOR MILD PAIN. DO NOT EXCEED 4000MG DAILY active Not Available Not Available No t Available nicotine 14 mg/24 hr daily transdermal patch APPLY 1 PATCH TOPICALLY FOR 14 DAY active Not Available Not Available No t Available azithromyci n 250 mg tablet TAKE 2 TABLETS ON FIRST DAY , THEN 1 TABLET DAILY FOR 4 DAYS active Not Available Not Available No t Available prednisone 5 mg tablet TAKE 2 TABLETS TWICE DAILY FOR 3 DAYS. THEN 1 TABLET TWICE DAILY X5 DAYS, THEN 1 TAB DAILY X5 DAYS active Not Available Not Available No t Available azathioprin e 50 mg tablet TAKE 1 TABLET BY MOUTH EVERY DAY 10/18 completed Not Available Not Available Not Available nifedipine ER 30 mg tablet,exte nded release TAKE ONE TABLET BY MOUTH EVERY DAY NEEDED (FOR RAYNAUD'S SYNDROME. MAY CAUSE DIZZINESS ) active Not Available Not Available No t Available lorazepam 0.5 mg tablet TAKE ONE TABLET BY MOUTH EVERY MORNING active Not Available Not Available No t Available oseltamivir 75 mg capsule active Not Available Not Available Not Available ferrous sulfate 325 mg (65 mg iron) tablet TAKE 1 TABLET BY MOUTH TWICE A DAY active Not Available Not Available No t Available nicotine 21 mg/[address] daily transdermal patch PLACE 1 PATCH ONTO THE SKIN EVERY DAY FOR 42 DAYS active Not Available Not Available No t Available hydroxychlo roquine 200 mg tablet TAKE ONE TABLET BY MOUTH TWICE A DAY active Not Available Not Available No t Available levofloxaci n 750 mg tablet TAKE 1 TABLET BY MOUTH EVERY 24 HOURS FOR 3 DAYS 10/18 completed Not Available Not Available Not Available albuterol sulfate HFA 90 mcg/actuati on aerosol inhaler active Not Available Not Available Not Available colchicine 0.6 mg tablet active Not Available Not Available Not Available norethindro ne (contracept kyle) 0.35 mg tablet active Not Available Not Available No t Available ondansetron 4 mg disintegrat ing tablet active Not Available Not Available N ot Available lamotrigine 100 mg tablet TAKE ONE-HALF TABLET BY MOUTH EVERY DAY active Not Available Not Available No t Available nicotine 7 mg/[address] daily transdermal patch PLACE 1 PATCH ONTO THE SKIN DAILY FOR 14 DAYS. active Not Available Not Available No t Available oxycodone 5 mg tablet TAKE ONE TABLET BY MOUTH EVERY 6 HOURS NEEDED FOR PAIN active Not Available Not Available No t Available escitalopra m 10 mg tablet TAKE 1 AND 1/2 TABLETS DAILY BY MOUTH active Not Available Not Available No t Available duloxetine 60 mg capsule,del ayed release TAKE ONE CAPSULE BY MOUTH EVERY DAY IN THE EVENING active Not Available Not Available No t Available Plaquenil 10/18 completed Not Available Not Available Not Available colchicine 0.6 mg capsule 10/18 completed Not Available Not Available Not Available Vitals Date Recorded Body temperature Heart rate Oxygen saturation Oxygen saturation in Arterial blood by Pulse oximetry Respiratory rate Systolic blood pressure Diastolic blood pressure Provider Name and Address Organization Details Last Updated DateTime 0 96.8 [degF] 100 /min 99 % 99 % 16 /min 136 mm[Hg] 80 mm[Hg] Not Available [facility] 0 15:35:29 Social History Question Answer Notes LastModified by Organizat ion Details LastModified Time Tobacco Smoking Status Current Every Day Smoker DOMITILA LEWIS [address], [place], [address], [place] [facility] 10/18/2020 15:35:24 Do You Have An Advance Directive? No [email or web address] Information not available 10/18/2020 What Is Your Code Status? Full Code [email or web address] Information not available 10/18/2020 Within The Past 12 Months, Has It Happened That The Food You Bought Just Didn't Last And You Didn't Have Money To Get More. No [email or web address] Information not available 10/18/2020 Within The Past 12 Months, Have You Worried That Your Food Would Run Out Before You Got Money To Buy More. No [email or web address] Information not available 10/18/2020 Fall Risk: Do You Feel Unsteady When Standing Or Walking? No [email or web address] Information not available 10/18/2020 We Know That How And When People Interact With Friends And Family Can Be Very Different From Person To Person. How Often Do You Have The Opportunity To See Or Talk To People That You Care About And Feel Close To? (Ex: Talking To Friends On The Phone Or Visiting Friends Or Family Or Going To Judaism Or Club Meetings) 5 Or More Times Per Week [email or web address] Information not available 10/18/2020 We Know From Many Of Our Patients That Covering All Of Their Costs Can Be Difficult At Times. This Can Cause Stress And Impact Health. In The Past Year, Have You Been Unable To Get Any Of The Following When It Was Really Needed? No [email or web address] Information not available 10/18/2020 What Is Your Housing Situation Today? I Have Housing [email or web address] Information not available 10/18/2020 Would You Like Help Connecting To Resources? None [email or web address] Information not available 10/18/2020 How Much Tobacco Do You Smoke? 0.5 PPD [email or web address] Information not available 10/18/2020 How Many Years Have You Smoked Tobacco? 8 [email or web address] Information not available 10/18/2020 Sex: Unknown Functional Status None recorded. Mental Status None recorded. Family History Relationship Description Onset Age of this Age Resolved Age Notes LastModified by Organization Details LastModified Time Father No current problems or disability [email or web address] Not available 10/18 15:35:18 Mother No current problems or disability [email or web address] Not available 10/18 15:35:18 Medical History Condition Response Coronary Artery Disease N COPD N Depression Y Diabetes N Cancer N Stroke N Asthma Y High Cholesterol N Pulmonary Embolism N Hypertension N Kidney Disease N Gynecological HistoryNo gynecological history recorded. Obstetrics History GPAL:G 0 P 0 0 0 0 Past Encounters Encounter ID Performer Location Encounter Start Date Encounter Closed Date Diagnosis/Indication Diagnosis SNOMED-CT Code Diagnosis ICD10 Code Diagnosis Note [id number] DOMITILA LEWIS [facility] [address] [place] [address] 10/18/2020 15:15:29 10/22/2020 15:00:37 Diarrhea 36496953 R19.7 Pain in throat 934616220 R07.0 Nasal congestion 9436062 0 R09.81 Exposure t o communicable disease 549291954 Z20.828 Health Concerns Section Related Observation LastModified by Organization Detai ls LastModified Time None Recorded Concern Status LastModified by Organization Details LastModified Time None Recorded Advance Directives Directive N: Payers Encounter Date Sequence Insurance Name Policy Number Policy Guillaume Covered Member ID Guillaume Member ID Guarantor Name 10/18/[address] [place] [id number] Yojana Gibson Notes Date Note Type Note Provider Name and Address Organization Details Recorded Time 10/18/2020 text/html 25yoF pmhx exercise induced asthma, fibromyalgia, and Lupus on Plaquenil. is seen for diarrhea x 2 this morning, nausea, and nasal congestion. No fevers. No abdominal pain. Patient denies any cough, chest pain or sob. Reports nasal congestion and sore throat. Patient has been working from home and lives with her , son and aunt. Her does have to leave for work but they have otherwise been quarantined. No known sick contact. DOMITILA LEWIS [address] [place], [address], [place] [facility] 10/18/2020 16:11:09 OBGyn Episode No OBEpisode recorded.
--- OUTSIDE RECORDS SUMMARY | 2025-01-25 16:54 | XMS_ITS | Clinical Summary ---
Author Organization [facility] Address [address] [place] [address] Care Team Providers Care 2Nd Grade Teacher Name Role Phone Sunni Earl MD Primary Care Provider [phone] Surgical History Surgery Date Site/Laterality Comments WISDOM [...] john thematosus SLE (systemic lupus erythema tosus) ([facility]) 03/02/2018 DX:SLE (systemic lupus eryth ematosus) ([facility]); COMMENT: 09/2017- started HCQ with Dr. Fry, + dsDNA and MEGHAN, neg POST ACUTE CARE NURSE, SM, SSA/SSB, normal C3/C4 Morbid obesity with BMI of 4 5.0-49.9, adult ([facility]) 07/11/2015 DX:Morbid obesity with BMI o f 45.0-49.9, adult ([facility]) Fibromyalgia 06/21/2020 DX:Fibromyalgia Pneumonia 06/21/2020 DX:Pneumonia; [...] RESULTING AGENCY - 03/02/2023 6:41 AM EDT [id number] THINPREP PAP, IMAGED: NEGATIVE FOR SQUAMOUS INTRAEPITHELIAL LESION AND MALIGNANCY . MTAT LOBATO(ASCP) (CASE ELECTRONICALLY SIGNED 02 28 2023) ADEQUACY: SATISFACTORY ENDOCERVICAL/TRANSFORMATION ZONE COMPONENT ABSENT. SOURCE: THINPREP PAP HPV IF ASCUS, CERVICAL, IMAGED CLINICAL INFORMATION: HPV IF DIAGNOSIS OF ASCUS. HORMONES IUD, PAP HX NEGATIVE, [Z01.419] Kylie Mario DO LAB CYTOLOGY ORDERABLES Final Result HISTORICAL TESTING LAB RESULTING AGENCY from Last 3 Months or Most Recently Relevant to Health Maintenance Care Teams 2Nd Grade Teacher Relationship Specialty Start Date End Date Sunni Earl MD PCP - General Internal Medicine 01/30/22
--- OUTSIDE RECORDS SUMMARY | 2025-01-25 16:55 | XMS_ITS | Clinical Summary ---
Author Organization [facility] Address [address] [place] [address] Care Team Providers Care Communication Equipment Mechanic Name Role Phone Sunni Earl MD Primary Care Provider [phone] Allergies No known active allergies Medications Medication [...] age to complete this topic Care Teams Communication Equipment Mechanic Relationship Specialty Start Date End Date Sunni Earl MD PCP - General Internal Medicine 01/30/22
== END 2025-01-25 14:48 | disposition home or self-care (01) ==
PROVIDERS: PCP Internal Medicine; Visit Provider Nurse Practitioner Family
DX: J45.909 Unspecified asthma, uncomplicated (principal); R07.81 Pleurodynia; M32.12 Pericarditis in systemic lupus erythematosus; Z86.79 Personal history of other diseases of the circulatory system; M34.9 Systemic sclerosis, unspecified; E66.01 Morbid (severe) obesity due to excess calories; Z68.41 Body mass index [BMI] 40.0-44.9, adult
CPT/HCPCS: 99214

== ENCOUNTER → 2025-01-25 14:01 | Outpatient (BNVA) | payer BC, SELFPAY | PROVIDERS: PCP Internal Medicine; Visit Provider Nurse Practitioner Family ==

== ENCOUNTER 2025-04-06 09:47 | Outpatient (AMB) | payer BC, SELFPAY ==
--- NOTE | 2025-04-06 09:54 | AM.OFFWIN_ITS ---
Intake Vital Signs 04/06/25 09:56 Weight 276 lb BP 122/80 Blood Pressure Location Rt brachial Position Sitting Pulse 97 Pulse Source Pulse Oximeter Pulse Oximetry (%) 97 Oxygen Delivery Method Room Air Intake Visit Reasons: EP Itching on forearms, lower legs Intake Note: Patient here for itching on forearms and lower legs that have been present for about 1 week. Patient Tobacco Use Status: Current everyday Tobacco user Allergies Opioids - Morphine Analogues Allergy (Severe, Verified 04/06/25 09:56) Vomiting Do you need a note to return to daycare/school/sports/work: No HPI HPI Comments History of Present Illness Details 30 y/o Female patient who presents to [facility] walk in clinic with c/o itching on forearms and lower legs that have been present for about 1 week. She does have h/o Lupus and currently on medications. She also does report h/o Raynaud's disease. She has been using multiple OTC medications with no symptom relief. [facility] Medical History (Updated 04/06/25 @ 10:32 by Esperanza Tellez NP) Generalized pruritus Vitamin D deficiency Sphincter of Oddi dysfunction SLE (systemic lupus erythematosus related syndrome) Restless leg syndrome Raynauds disease Radial styloid tenosynovitis Pericarditis Obstructive sleep apnea Microcytic hypochromic anemia HTN (hypertension) Gestational diabetes Fibromyalgia Depression Cervical lymphadenopathy Bipolar disorder Acanthosis Abdominal pain Surgical History H/O wisdom tooth extraction S/P ERCP Family History Father Bipolar 1 disorder Substance use Mother Alcoholism Other FH: mental illness Social History Housing: Apartment Alcohol intake: never Patient Tobacco Use Status: Current everyday Tobacco user Tobacco use type: Cigarette Cigarettes Per Day: 10 Years Smoked: 12 e-Cigarette/Vaping Use: Never Used Second Hand Smoke Exposure: Yes service: No Current occupational status: employed and unemployed Cognitive needs: No Hearing needs: No Vision needs: No Physical Exam Vital Signs: Last Vital Signs Pulse 97 04/06/25 09:56 BP 122/80 04/06/25 09:56 Pulse Ox 97 04/06/25 09:56 Oxygen Delivery Method Room Air 04/06/25 09:56 Const General: no acute distress Nutritional Appearance: obese morbidly obese Orientation/consciousness: patient oriented x3 Skin Other: No visible Rash present. Lower limbs discolored; purplish-pinkish skin color General skin exam: no rashes or lesions noted, dry skin and spider nevi (Lower extremities. ) Neuro General: patient oriented x3 Extrem General: Yes full ROM and Yes capillary refill normal Right upper extremity: full ROM and normal capillary refill; no cyanosis and no edema Left upper extremity: full ROM and normal capillary refill; no cyanosis and no e tayla Assessment & Plan Assessment & Plan (1) Generalized pruritus: Code(s): L29.9 - Pruritus, unspecified Plan: No rash present. No clear etiology at this time Ordered Prednisone Pt to continue taking Famotidine. F/U with PCP and specialists PRN Medications: New prednisone 20 mg PO DAILY 10 tabs 0RF L29.9 - Pruritus, unspecified Coding Level of Care Code Est Pt Level 4 (51040) Diagnoses Generalized pruritus L29.9 Time Spent (min) 20
[2025-04-06 09:56] VITALS: BP 122/80; PULSE 97; O2SAT 97
--- OUTSIDE RECORDS SUMMARY | 2025-04-06 10:39 | XMS_ITS | Data Portability ---
Author Organization [place] - [facility] Address [address] [place] [id number] Care Team Providers Care Senior Environmental Practice Leader Name Role Phone LYRIC CENTENO Primary Care [...] after care of this patient according to [facility]'s infection prevention protocols. Time On Scene with Patient: 00:27:47 [email or web address] Not available 10/18/2020 16:09:22 Plan of Treatment Reminders Order Date Submit Date Provider Last Modified By Organization Details Last Modified Time Details Appointments None recorded. 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 Procedures None recorded. Surgeries None recorded. Imaging None recorded. Medication Orders None recorded. Patient TargetsNo targets recorded. Patient Instructions Encounter Date Encounter Id Patient Instructions Last Modified By Organization Details Last Modified Time 10/18/2020 [id number] DRINK PLENTY OF FLUIDS YOUR FLU TEST [...] CARE Thank you for your visit with [facility] today. We cannot always find [...] in your condition between 8am-10pm, please call [facility] at [phone] to help navigate your care. Not available 10/18/2020 15:51:14 Reason for Referral None Reported. 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 Nucle ic acid [...] Go To The Location Of Their Choice, [id number] 10/21/2020 23:03:06 10/18/20 20 10/18/2020 rapid flu (A+B) Flu A negati ve Not Available [facility] [address] [place] [address] Elena, [place], [address], 10/18/2020 15:49:08 10/18/20 20 10/18/2020 rapid flu (A+B) Flu B negati ve Not Available [facility] [address] [place], [address], 10/18/2020 15:49:08 10/18/20 20 10/18/2020 rapid flu (A+B) Control Visual ized / Valid Not Available [facility] [address] [place], [address], 10/18/2020 15:49:08 Result Notes None recorded. Procedures Surgical History Date Name Laterality Status Provider Name and Address Organization Details Recorded Time pericardiostomy completed DOMITILA LEWIS [address] [place], [address], [place] [facility] 10/18/2020 15:36:46 Cholecystectomy completed DOMITILA LEWIS [address] [place], [address], [place] [facility] 10/18/2020 15:36:55 section completed DOMITILA LEWIS [address] [place], [address], [place] [facility] 10/18/2020 15:37:04 Imaging Results [...] Current Every Day Smoker DOMITILA LEWIS [address], [place], [address], [place] [facility] 10/18/2020 15:35:24 Do You Have An Advance Directive? No Information not available 10/18/2020 What Is Your Code Status? Full Code [email or web address] Information not available 10/18/2020 Within The Past 12 Months, Has It Happened That The Food You Bought Just Didn't Last And You Didn't Have Money To Get More. No [email or web address] Information not available 10/18/2020 Within The Past 12 Months, Have You Worried That Your Food Would Run Out Before You Got Money To Buy More. No [email or web address] Information not available 10/18/2020 Fall Risk: Do You Feel Unsteady When Standing Or Walking? No Information not available 10/18/2020 We Know That How And When People Interact With Friends And Family Can Be Very Different From Person To Person. How Often Do You Have The Opportunity To See Or Talk To People That You Care About And Feel Close To? (Ex: Talking To Friends On The Phone Or Visiting Friends Or Family Or Going To Mu-Ism Or Club Meetings) 5 Or More Times Per Week [email or web address] Information not available 10/18/2020 We Know From Many Of Our Patients That Covering All Of Their Costs Can Be Difficult At Times. This Can Cause Stress And Impact Health. In The Past Year, Have You Been Unable To Get Any Of The Following When It Was Really Needed? No [email or web address] Information not available 10/18/2020 What Is Your Housing Situation Today? I Have Housing Information not available 10/18/2020 Would You Like Help Connecting To Resources? None [email or web address] Information not available 10/18/2020 How Much Tobacco Do You Smoke? 0.5 PPD [email or web address] Information not available 10/18/2020 How Many Years Have You Smoked Tobacco? 8 Information not available 10/18/2020 Sex: Unknown Functional Status None recorded. Mental Status None recorded. Family History Relationship Description Onset Age of this Age Resolved Age Notes LastModified by Organization Details LastModified Time Father No current problems or disability [email or web address] Not available 10/18 15:35:18 Mother No current problems or disability Not available 10/18 15:35:18 Medical History Condition Response Diabetes N Coronary Artery Disease N High Cholesterol N Cancer N Pulmonary Embolism N Stroke N Hypertension N Asthma Y COPD N Depression Y Kidney Disease N Gynecological HistoryNo gynecological history recorded. Obstetrics History GPAL:G 0 P 0 0 0 0 Past Encounters Encounter ID Performer Location Encounter Start Date Encounter Closed Date Diagnosis/Indication Diagnosis SNOMED-CT Code Diagnosis ICD10 Code Diagnosis Note [id number] DOMITILA LEWIS [facility] [address] [place] [address] 10/18/2020 15:15:29 10/22/2020 15:00:37 Diarrhea 72385047 R19.7 Pain in throat 627657003 R07.0 Nasal congestion 5353326 0 R09.81 Exposure t o communicable disease 011452330 Z20.828 Health Concerns Section Related Observation LastModified by Organization Detai ls LastModified Time None Recorded Concern Status LastModified by Organization Details LastModified Time None Recorded Advance Directives Directive N: Payers Insurance Date Sequence Insurance Name Policy Number Policy Guillaume Covered Member ID Guillaume Member ID Guarantor Name 06/05/[address] [place] [id number] [place] 10/18/2020 1 *SELF PAY* [facility] [id number] [facility] 06/05/[address] [facility] [id number] [id number] [facility] 06/05/[address] [facility] [id number] [facility] [id number] [facility] [facility] Notes Date Note Type Note Provider Name [...] No known sick contact. DOMITILA LEWIS [address] [place], [address], [place] [facility] 10/18/2020 16:11:09 OBGyn Episode No OBEpisode recorded.
--- OUTSIDE RECORDS SUMMARY | 2025-04-06 10:39 | XMS_ITS | Clinical Summary ---
Author Organization [facility] Address [address] [place] [address] Care Team Providers Care Group Counselor Name Role Phone Sunni Earl MD Primary Care Provider [phone] Allergies No known active allergies Medications Medication [...] age to complete this topic Care Teams Group Counselor Relationship Specialty Start Date End Date Sunni Earl MD PCP - General Internal Medicine 01/30/22
--- OUTSIDE RECORDS SUMMARY | 2025-04-06 10:39 | XMS_ITS | Clinical Summary ---
Author Organization [facility] [address] [facility] Address [address] [facility] [place] [address] Phone Care Team Providers Care Patient Registrar Name Role Phone Sunni Earl MD Primary Care Provider [phone] Surgical History Surgery Date Site/Laterality Comments WISDOM [...] john thematosus SLE (systemic lupus erythema tosus) ([facility] V24, [facility] V28) 03/02/2018 DX:SLE (systemic lupus eryt hematosus) ([facility]); COMMENT: 09/2017- started HCQ with Dr. 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, SM, SSA/SSB, normal C3/C4 Morbid obesity with BMI of 4 5.0-49.9, adult ([facility] V24, [facility] V28) 07/11/2015 DX:Morbid obesity wit h BMI of 45.0-49.9, adult ([facility]) Fibromyalgia 06/21/2020 DX:Fibromyalgia Pneumonia 06/21/2020 DX:Pneumonia; CO MMENT: Community acquired IP admit 05/20-7/1/20 Pericardial effusion 05/15/2019 DX:Pericard ial effusion; COMMENT: IP Admit 05/20 - 05/23/20- Pericardial effusion, IV Abx, whth resolution, 04/2019 Pericardial window Bipolar disorder (CMS/HCC V2 4, CMS/HCC V28) 07/23/2015 DX:Bipolar disorder ([facility]); C OMMENT: Follows with Dr Villafana Tobacco dependence 10/05/2013 [...] 03/24/2024 3:24 PM EDT Plan of Treatment Upcoming Encounters Date Type Department Care Team (Late st Contact Info) Description 05/02/2025 10:00 AM EDT Office Visit Obstetrics and Gynecology - [place] [address] [place] [id number] Serjio Blandon, [facility] [address] [place] [address] Health Maintenance Due Date Last Done Comments [...] Influencers of Health Screening 10/31/2022 Influenza Vaccine (Season Ended) 2025 Cervical Cancer Screening: Pap Smear 02/18/2026 02/18/2023 [...] 05/23, 04/09/2007 Varicella Vaccines Completed 09/10/2010, 03/24/2000 Hepatitis A Vaccines Aged Out No long er eligible based on patient's age to complete this topic Meningococcal B Vaccine Aged Out No l onger eligible based on patient's age to complete [...] RESULTING AGENCY - 03/02/2023 6:41 AM EDT [id number] THINPREP PAP, IMAGED: NEGATIVE FOR SQUAMOUS INTRAEPITHELIAL [...] or Most Recently Relevant to Health Maintenance [place] [phone] [facility]) Care Teams Patient Registrar Relationship Specialty Start Date End Date O'Espino, Sunni M, MD PCP - General Internal Medicine 01/30/22
== END 2025-04-06 10:36 | disposition home or self-care (01) ==
PROVIDERS: PCP Internal Medicine; Visit Provider Nurse Practitioner Family
DX: L29.9 Pruritus, unspecified (principal)

== ENCOUNTER → 2025-04-06 09:47 | Outpatient (BNVA) | payer BC, SELFPAY | PROVIDERS: PCP Internal Medicine; Visit Provider Nurse Practitioner Family ==

== ENCOUNTER 2025-05-08 13:43 | Outpatient (REF) | payer BC, SELFPAY ==
--- NOTE | ~2025-05-08 | XR_ITS ---
EXAMINATION: XR CHEST CLINICAL INFORMATION: R07.81 - Pleurodynia COMPARISON: December 14, 2024. TECHNIQUE: 2 views of the chest were obtained. FINDINGS: No consolidation, pleural effusion or pneumothorax. Cardiomediastinal silhouette size is normal. Mild S-shaped curvature of the thoracolumbar spine. Multilevel spondylosis. Vascular clips right upper quadrant abdomen and likely laparoscopic cholecystectomy. Patient's large body habitus/obesity. XR/XR chest 2V IMPRESSION: No acute airspace disease. Electronically signed by: Juan Pedersen MD 05/08/2025 02:47 PM EDT
== END 2025-05-08 13:44 | disposition home or self-care (01) ==
LOC: HO.XRAY 13:43
PROVIDERS: PCP Internal Medicine; Visit Provider Nurse Practitioner Family
DX: R07.81 Pleurodynia (principal)
CPT/HCPCS: 71046

== ENCOUNTER 2025-05-08 13:43 | Outpatient (AMB) | payer BC, SELFPAY ==
--- NOTE | 2025-05-08 13:44 | A.OFFVIS_ITS ---
Vital Signs 05/08/25 13:45 Height 5 ft 5 in Weight 288 lb 12.889 oz BMI 48.1 BP 140/78 H Blood Pressure Location Lt brachial Position Sitting Pulse 99 Pulse Source Pulse Oximeter Pulse Oximetry (%) 96 Oxygen Delivery Method Room Air Intake Visit Reasons: CONKLIN Intake Note: pt had an echo last week it was fine and she has been having SOB and sharp pain when she takes deep breath and lays down for the past 2 weeks Allergies Opioids - Morphine Analogues Allergy (Severe, Verified 05/08/25 13:50) Vomiting HPI HPI CONKLIN: Details: Yojana is a pleasant 30 year old female, current smoker with 12 pack year history with underlying asthma, lupus, scleroderma, raynaud's, h/o pericardial effusion s/p pericardial window and recurrent pericarditis last November 2022. She is under the care of cardiology and rheumatology at [facility]. She recently had inflammatory markers which were WNL in March and recent echo unremarkable. Since the last visit, she reports waxing and waning peripheral erythematous, pruritic rash with upcoming appt with dermatology in two weeks. She has been using Symbicort with moderate control at baseline, however not using consistently, reporting 5 times per week 2 inhalations QD. Today she presents for an acute visit. She reports two week h/o dry cough, left sided pleuritic discomfort and inability to fully inspire. She notes symptoms worsened over the past weekend and seem to be slowly resolving. She denies fevers, chills or chest congestion. [facility] Medical History (Updated 04/06/25 @ 10:32 by Esperanza Tellez NP) Generalized pruritus Vitamin D deficiency Sphincter of Oddi dysfunction SLE (systemic lupus erythematosus related syndrome) Restless leg syndrome Raynauds disease Radial styloid tenosynovitis Pericarditis Obstructive sleep apnea Microcytic hypochromic anemia HTN (hypertension) Gestational diabetes Fibromyalgia Depression Cervical lymphadenopathy Bipolar disorder Acanthosis Abdominal pain Surgical History H/O wisdom tooth extraction S/P ERCP Family History Father Bipolar 1 disorder Substance use Mother Alcoholism Other FH: mental illness Social History Housing: Apartment Alcohol intake: never Patient Tobacco Use Status: Current everyday Tobacco user Tobacco use type: Cigarette Cigarettes Per Day: 10 Years Smoked: 12 e-Cigarette/Vaping Use: Never Used Second Hand Smoke Exposure: Yes service: No Current occupational status: employed and unemployed Cognitive needs: No Hearing needs: No Vision needs: No Review of Systems Const Denies chills, Denies excessive sweating, Denies fever(s), Denies headache(s) and Denies night sweats Eyes Denies dry eyes, Denies irritation and Denies itchy eyes ENT Reports Normal hearing present and Denies headache(s) Card Denies chest pain, Denies chest pain at rest, Denies chest pain with activity, Denies claudication, Denies orthopnea and Denies paroxysmal nocturnal dyspnea Resp Denies chest congestion, Denies cough, Denies excessive phlegm production, Denies stridor and Denies wheezing Musc Denies myalgias Neuro Reports Normal hearing present and Denies headache(s) Endo Denies excessive sweating Miller/Lymph Denies lymphadenopathy Aller/Immun Denies itchy eyes, Denies seasonal rhinorrhea and Denies wheezing Physical Exam Vital Signs: Last Vital Signs Pulse 99 05/08/25 13:45 BP 140/78 H 05/08/25 13:45 Pulse Ox 96 05/08/25 13:45 Oxygen Delivery Method Room Air 05/08/25 13:45 BMI result Body Mass Index 48.1 Const General: cooperative, healthy appearing, comfortable, no acute distress, well developed and alert Nutritional Appearance: obese Orientation/consciousness: patient oriented x3 Limitations: no limitations HEENT Head: Yes normal to inspection, Yes normocephalic and Yes atraumatic Ears: hearing grossly normal bilaterally and external ears normal Eyes General: appearance normal, both eyes and all related structures Eyelids: Yes eyelids normal Sclerae: sclerae normal EOM: EOMs intact bilaterally Neck Neck: Yes normal visual inspection and Yes no lymphadenopathy Lymphatic: no lymphadenopathy noted Chest Chest palpation & inspection: normal inspection of the chest Resp Effort & Inspection: normal respiratory effort, able to speak in complete sent ences, no audible wheezes, no cough, no stridor, not tachypneic, no tripod positioning and no use of accessory muscles Auscultation: clear to auscultation bilaterally Cardio Jugular venous distension: no JVD Rate: regular rate Rhythm: regular rhythm Skin Other: warm, dry General skin exam: no rashes or lesions noted Neuro General: patient oriented x3 Cranial nerves: Yes Normal hearing present Cognition (Neuro): normal cognition Gait exam (Neuro): Normal gait present Extrem General: Yes normal to inspection, Yes capillary refill normal, Yes no clubbing, cyanosis or edema and Yes no pedal edema Psych Appearance: grossly normal and well kempt Speech and movement: Normal speech and movement present and Clear speech present Affect: normal affect Attitude: cooperative Thought process: Normal thought process present Thought content: Normal thought content present Insight: Good insight present (Psych) Judgement: Good judgement present (Psych) Assessment & Plan Assessment & Plan (1) Asthma: Code(s): J45.909 - Unspecified asthma, uncomplicated Category: Medical (2) Pleuritic pain: Code(s): R07.81 - Pleurodynia Category: Medical (3) Lupus (systemic lupus erythematosus): Code(s): M32.9 - Systemic lupus erythematosus, unspecified Category: Medical Qualifiers: Systemic lupus erythematosus organ involvement: pericarditis Systemic lupus erythematosus type: unspecified Qualified Code(s): M32.12 - Pericarditis in systemic lupus erythematosus (4) History of pericarditis: Code(s): Z86.79 - Personal history of other diseases of the circulatory system Category: Medical (5) Scleroderma: Code(s): M34.9 - Systemic sclerosis, unspecified Category: Medical (6) Obesity: Code(s): E66.9 - Obesity, unspecified Category: Medical Qualifiers: Body mass index: BMI 40.0-44.9 Obesity classification: adult class 3 (BMI >= 40) Obesity type: due to excess calories Serious obesity comorbidity presence: unspecified whether serious comorbidity present Qualified Code(s): E66.01 - Morbid (severe) obesity due to excess calories; Z68.41 - Body mass index [BMI] 40.0-44.9, adult Plan Will send for CXR today and send prednisone for pleuritic discomfort, which has resolved symptoms in the past. She is aware to call if symptoms do not improve or seek emergent care if worsening. Discussed importance of adhering to medication regimens. We discussed smoking cessation which she is working towards however decreasing mood stabilizer so discussed waiting until after tapered of f. All questions were answered and patient is in agreement of plan. Will follow up at regularly scheduled appt or sooner if needed. Orders: Orders XR chest 2V Today R07.81 - Pleurodynia Medications: New prednisone 40 mg (2 x 20 mg) PO DAILY 10 tabs 0RF Discontinued fluticasone furoate-vilanterol 100-25 mcg/dose (Breo Ellipta) Discontinued Reason: Insurance Denied 1 inh inhalation DAILY 60 ea 3RF Coding Level of Care Code Est Pt Level 4 (04201) Diagnoses Asthma J45.909 Pleuritic pain R07.81 Systemic lupus erythematosus (SLE) with pericarditis, unspecified SLE type M32.12 Systemic lupus erythematosus organ involvement: pericarditis Systemic lupus erythematosus type: unspecified History of pericarditis Z86.79 Scleroderma M34.9 Class 3 severe obesity due to excess calories with body mass index (BMI) of 40.0 to 44.9 in adult, unspecified whether serious comorbidity present E66.01; Z68.41 Body mass index: BMI 40.0-44.9 Obesity classification: adult class 3 (BMI >= 40) Obesity type: due to excess calories Serious obesity comorbidity presence: unspecified whether serious comorbidity present
[2025-05-08 13:45] VITALS: BP 140/78; PULSE 99; O2SAT 96; BMI 48.1
--- OUTSIDE RECORDS SUMMARY | 2025-05-08 15:20 | XMS_ITS | Data Portability ---
Author Organization [place] - [facility]ly [facility], [facility] Address [address] [place] [id number] Care Team Providers Care Field Artillery Targeting Technician Name Role Phone LYRIC CENTENO Primary Care [...] after care of this patient according to [facility]'s infection prevention protocols. Time On Scene with Patient: 00:27:47 [email or web address] Not available 10/18/2020 16:09:22 Plan of Treatment Reminders Order Date Submit Date Provider Last Modified By Organization Details Last Modified Time Details Appointments None recorded. 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 Procedures None recorded. Surgeries None recorded. Imaging None recorded. Medication Orders None recorded. Patient TargetsNo targets recorded. Patient Instructions Encounter Date Encounter Id Patient Instructions Last Modified By Organization Details Last Modified Time 10/18/2020 [id number] DRINK PLENTY OF FLUIDS YOUR FLU TEST [...] CARE Thank you for your visit with [facility] today. We cannot always find the exact cause of your symptoms during your initial visit. Please follow up with your primary care provider or specialist 1 WEEK NEEDED to be rechecked or seek medical attention if your symptoms do not go away or get worse. If you develop any new or worsening symptoms and need after hours care, please go to nearest ER and/or call 911. If you have additional concerns or develop a change in your condition between 8am-10pm, please call [facility] at [phone] to help navigate your care. [email or web address] Not available 10/18/2020 15:51:14 Reason for Referral None Reported. 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 Nucle ic acid [...] Go To The Location Of Their Choice, [id number] 10/21/2020 23:03:06 10/18/20 20 10/18/2020 rapid flu (A+B) Flu A negati ve Not Available [facility] [address] [place] [address] Elena, [place], [address], 10/18/2020 15:49:08 10/18/20 20 10/18/2020 rapid flu (A+B) Flu B negati ve Not Available [facility] [address] [place], [address], 10/18/2020 15:49:08 10/18/20 20 10/18/2020 rapid flu (A+B) Control Visual ized / Valid Not Available [facility] [address] [place], [address], 10/18/2020 15:49:08 Result Notes None recorded. Procedures Surgical History Date Name Laterality Status Provider Name and Address Organization Details Recorded Time pericardiostomy completed DOMITILA LEWIS [address] [place], [address], [place] [facility] 10/18/2020 15:36:46 Cholecystectomy completed DOMITILA LEWIS [address] [place], [address], [place] [facility] 10/18/2020 15:36:55 section completed DOMITILA LEWIS [address] [place], [address], [place] [facility] 10/18/2020 15:37:04 Imaging Results [...] Every Day Smoker DOMITILA LEWIS [address] [place], [address], [place] [facility] 10/18/2020 15:35:24 Do You Have An Advance Directive? No Information not available 10/18/2020 What Is Your Code Status? Full Code [email or web address] Information not available 10/18/2020 Within The Past 12 Months, Has It Happened That The Food You Bought Just Didn't Last And You Didn't Have Money To Get More. No [email or web address] Information not available 10/18/2020 Within The Past 12 Months, Have You Worried That Your Food Would Run Out Before You Got Money To Buy More. No [email or web address] Information not available 10/18/2020 Fall Risk: Do You Feel Unsteady When Standing Or Walking? No [email or web address] Information not available 10/18/2020 We Know That How And When People Interact With Friends And Family Can Be Very Different From Person To Person. How Often Do You Have The Opportunity To See Or Talk To People That You Care About And Feel Close To? (Ex: Talking To Friends On The Phone Or Visiting Friends Or Family Or Going To Taoist Or Club Meetings) 5 Or More Times Per Week [email or web address] Information not available 10/18/2020 We Know From Many Of Our Patients That Covering All Of Their Costs Can Be Difficult At Times. This Can Cause Stress And Impact Health. In The Past Year, Have You Been Unable To Get Any Of The Following When It Was Really Needed? No [email or web address] Information not available 10/18/2020 What Is Your Housing Situation Today? I Have Housing [email or web address] Information not available 10/18/2020 Would You Like Help Connecting To Resources? None [email or web address] Information not available 10/18/2020 How Much Tobacco Do You Smoke? 0.5 PPD [email or web address] Information not available 10/18/2020 How Many Years Have You Smoked Tobacco? 8 Information not available 10/18/2020 Sex: Unknown Functional Status None recorded. Mental Status None recorded. Family History Relationship Description Onset Age of this Age Resolved Age Notes LastModified by Organization Details LastModified Time Father No current problems or disability [email or web address] Not available 10/18 15:35:18 Mother No current problems or disability [email or web address] Not available 10/18 15:35:18 Medical History Condition Response Diabetes N Coronary Artery Disease N High Cholesterol N Pulmonary Embolism N Cancer N Hypertension N Stroke N Asthma Y COPD N Depression Y Kidney Disease N Gynecological HistoryNo gynecological history recorded. Obstetrics History GPAL:G 0 P 0 0 0 0 Past Encounters Encounter ID Performer Location Encounter Start Date Encounter Closed Date Diagnosis/Indication Diagnosis SNOMED-CT Code Diagnosis ICD10 Code Diagnosis Note [id number] DOMITILA LEWIS [facility] [address] [place] [address] 10/18/2020 15:15:29 10/22/2020 15:00:37 Diarrhea 99342812 R19.7 Pain in throat 390368258 R07.0 Nasal congestion 7738751 0 R09.81 Exposure t o communicable disease 517542373 Z20.828 Health Concerns Section Related Observation LastModified by Organization Detai ls LastModified Time None Recorded Concern Status LastModified by Organization Details LastModified Time None Recorded Advance Directives Directive N: Payers Insurance Date Sequence Insurance Name Policy Number Policy Guillaume Covered Member ID Guillaume Member ID Guarantor Name 06/05/[address] [facility] [id number] [facility] 10/18/2020 1 *SELF PAY* [facility] [id number] [facility] 06/05/2021 [id number] [facility] [id number] [address] [facility] 06/05/2021 [id number] [facility] [id number] [facility] Notes Date Note Type Note Provider Name [...] known sick contact. DOMITILA LEWIS [address], [place], [address], [place] [facility] 10/18/2020 16:11:09 OBGyn Episode No OBEpisode recorded.
== END 2025-05-08 14:47 | disposition home or self-care (01) ==
LOC: HO.HPS 13:44
PROVIDERS: PCP Internal Medicine; Visit Provider Nurse Practitioner Family
DX: J45.909 Unspecified asthma, uncomplicated (principal); R07.81 Pleurodynia; M32.12 Pericarditis in systemic lupus erythematosus; Z86.79 Personal history of other diseases of the circulatory system; M34.9 Systemic sclerosis, unspecified; E66.01 Morbid (severe) obesity due to excess calories; Z68.41 Body mass index [BMI] 40.0-44.9, adult
CPT/HCPCS: 99214

== ENCOUNTER → 2025-05-08 14:21 | Outpatient (BNV) | payer BC, SELFPAY | PROVIDERS: PCP Internal Medicine; Visit Provider Radiology Diagnostic Radiology | DX: R07.81 Pleurodynia (principal) | CPT/HCPCS: 71046 ==

== ENCOUNTER 2025-06-19 10:07 | Outpatient (AMB) | payer BC, SELFPAY ==
--- NOTE | 2025-06-19 10:12 | A.OFFPC_ITS ---
Vital Signs 06/19/25 10:17 Height 5 ft 5 in Weight 289 lb BMI 48.1 BP 114/72 Blood Pressure Location Rt radial Position Sitting Pulse 99 Pulse Source Pulse Oximeter Temp 97.8 F Temp Source Temporal Artery Scan Pulse Oximetry (%) 98 Oxygen Delivery Method Room Air Intake Visit Reasons: ED F/U [facility] for vertigo / Dr. Wagner's Pt. Intake Note: Yojana presents in the office today for an ER follow up. Allergies Opioids - Morphine Analogues Allergy (Severe, Verified 06/19/25 10:14) Vomiting Tobacco use date assessed: 06/19/25 Dental Screening Dental Screen Date: 06/19/25 Did you have a dental visit in the last 12 months?: Yes Did you have a dental problem in the last 6 months where you did not have access to dental care?: No Was dental information given to patient?: Patient has dentist HPI HPI Comments History of Present Illness Details This is a 29 year old female with a past medical history of SLE, scleroderma, anxiety, bipolar depression, SOFYA presenting for ER follow up. Patient was seen at [facility] ED on 06/14/25. She had not been feeling well for a week prior. She had diarrhea and headaches and fatigue. She went to the ED because she was at work and developed sudden onset of feeling like she was going to pass out and like the room was moving. She felt nauseous and her hearing was muffled and she felt tingly. Blood pressure was elevated at the ED, but it is normal today. Red blood cell count, hemoglobin and hematocrit were normal. MCV, MCH and MCHC were low at 77.7, 25.6 and 32.9, respectively. EKG nonischemic. Electrolytes, glucose, lipase, LFTs, lactate, troponin, TSH and urinalysis were negative. Swab for flu swab, COVID- [address] without contrast was negative. CT abdomen pelvis with IV contrast was negative. Suspected viral illness. Patient reports she is feeling a little better. She has been taking Ativan because her symptoms make her very anxious. She also increase propranolol from 20-40 mg a day for anxiety. She continues to feel like she is still moving when she turns over in bed or changes positions or stands. This is associated with nausea. She continues to have headaches. Her ears were ringing since the hospital, but this is much better today. She denies hearing loss. Patient is eating and drinking though appetite has been a bit decreased. 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 Denies head trauma. Scheduled to have echocardiogram in [place] next week for routine surveillance. SLE: Follows at [facility]. Complicated by lupus percarditis. Had holter reassuring. Also has former diagnosis of fibromyalgia. Flares of myalgia, arthralgia, radiculopathy. On cellcept, HCQ. Bipolar: Sees psychiatry and therapist. She is on lamictal, ativan. Last med change was in April when Lamictal was decreased. ROS: Constitutional: No fevers, chills, night sweats or unexplained weight loss. Eyes: No vision changes, blurry vision, double vision, eye pain, eye redness, eye discharge. ENT: No hearing loss, sneezing, congestion, runny nose or sore throat. Respiratory: No shortness of breath, cough or sputum production. Cardiovascular: No chest pain, chest pressure or chest discomfort. + increased heart rate with anxiety. Gastrointestinal: No abdominal pain, vomiting, diarrhea or blood in stools. Genitourinary: No dysuria, hematuria, urinary frequency. Neurologic: No seizures, tremors, numbness, ataxia. See HPI Physical exam: Constitutional: Alert, in no distress. Eyes: Pupils are equal, round and reactive to light. Extraocular muscles intact. Ear, Nose and Throat: Canals clear. TMs normal. Normal nasal mucosa. No nasal discharge. No oral lesions. Neck: Supple, Full range of motion. No lymphadenopathy. No palpable thyroid masses. Respiratory: Clear to auscultation. Cardiovascular: S1 S2 regular. No murmurs. Gastrointestinal: Abdomen soft, non-tender, non-distended. Normal bowel sounds. No palpable masses. Neurologic:?Alert and oriented x 3, no focal deficits observed, CN 2-12 intact, [id number] normal, sensation equal and symmetric, strength UE and LE 5/5 bilaterally, reflexes equal and symmetric.? Normal gait.? Patient able to heel walk, toe walk and walk heel-to-toe across the floor.? No pronator drift.? Negative Romberg.. Skin: No rashes Extremities: Warm and well perfused. No clubbing, cyanosis or edema. Psychiatric: Normal mood and affect [facility] Medical History (Updated 06/19/25 @ 17:16 by DOMITILA Mcclain) Tinnitus Nausea Vertigo Generalized pruritus Vitamin D deficiency Sphincter of Oddi dysfunction SLE (systemic lupus erythematosus related syndrome) Restless leg syndrome Raynauds disease Radial styloid tenosynovitis Pericarditis Obstructive sleep apnea Microcytic hypochromic anemia HTN (hypertension) Gestational diabetes Fibromyalgia Depression Cervical lymphadenopathy Bipolar disorder Acanthosis Abdominal pain Surgical History H/O wisdom tooth extraction S/P ERCP Family History Father Bipolar 1 disorder Substance use Mother Alcoholism Other FH: mental illness Social History (Updated 06/19/25 @ 10:17 by Dona Baker MA) Housing: Apartment Alcohol intake: never Patient Tobacco Use Status: Current everyday Tobacco user Tobacco use type: Cigarette Cigarettes Per Day: 10 Years Smoked: 12 e-Cigarette/Vaping Use: Never Used Second Hand Smoke Exposure: Yes service: No Current occupational status: employed and unemployed Cognitive needs: No Hearing needs: No Vision needs: No Questionnaire PHQ-9 Over the last 2 weeks, how often have you been bothered by any of the following problems? 1. Little interest or pleasure in doing things: several days 2. Feeling down, depressed, or hopeless: several days 3. Trouble falling or staying asleep, or sleeping too much: several days 4. Feeling tired or having little energy: several days 5. Poor appetite or overeating: several days 6. Feeling bad about yourself - or that you are a failure or have let yourself or your family down: several days 7. Trouble concentrating on things, such as reading the newspaper or watching television: several days 8. Moving or speaking so slowly that other people could have noticed. Or the opposite - being so fidgety or restless that you have been moving around a lot more than usual: several days 9. Thoughts that you would be better off or of hurting yourself in some way: not at all Total score: 8 Source: Developed by Drs. Remigio Swan, Juliana Milan, Cristian Tripathi and colleagues, with an educational helena from [employer]. Thrive Questionnaire Date Thrive assessed: 12/14/24 I am a: Patient What is your living situation today?: I have a steady place to live Within the past 12 months, did the food you bought not last and you didn't have the money to get more?: I choose not to answer this question Within the past 12 months, did you worry whether your food would run out before you got money to buy more?: I choose not to answer this question Do you have trouble paying for medicines?: I choose not to answer this question Do you have trouble getting transportation to medical appointments?: I choose not to answer this question Do you have trouble paying your heating and electricity bill?: I choose not to answer this question Do you have trouble taking care of your child, family member or friend?: I choose not to answer this question Do you have trouble with day-to-day activities such as bathing, preparing meals, shopping, managing finances, etc.?: I choose not to answer this question Are you currently unemployed and looking for a job?: No Are you interested in more education?: No Please select the resources that you would like help with: None Currently or been in a relationship where the following occur: No concerns reported THRIVE Score: 0 AUDIT C Alcohol Use Questionnaire (AUDIT-C) 3. How often do you have six or more drinks on one occasion?: Never Total Score: 0 MAHAMED-7 AMB Questionnaire MAHAMED-7 Date MAHAMED - 7 assessed: 08/09/24 Source: Developed by Drs. Remigio Swan, Juliana Milan, Cristian Tripathi and colleagues, with an educational helena from [employer]. Physical exam (Primary Care) Vital Signs: Last Vital Signs Temp 97.8 F 06/19/25 10:17 Pulse 99 06/19/25 10:17 BP 114/72 06/19/25 10:17 Pulse Ox 98 06/19/25 10:17 Oxygen Delivery Method Room Air 06/19/25 10:17 BMI result Body Mass Index 48.1 Tobacco/Smoking Status: Tobacco use Status Tobacco use date assessed 06/19/25 06/19/25 10:22 Patient Tobacco Use Status Current everyday Tobacco 06/19/25 10:22 Tobacco use type Cigarette 06/19/25 10:22 e-Cigarette/Vaping Use Never Used 06/19/25 10:22 PHQ-9: PHQ-9 Score PHQ-9: Total score 8 07/28/25 10:33 Thrive Assessment: Date of Thrive Assessment Date Thrive assessed 12/14/24 06/19/25 10:22 Currently or been in a relationship where the following occur: No concerns reported Coding Level of Care Code Est Pt Level 4 (06447) Complex EM visit Add On G2211 Diagnoses Vertigo R42 Nausea R11.0 Tinnitus H93.19 Assessment & Plan Assessment & Plan (1) Vertigo: Code(s): R42 - Dizziness and giddiness Category: Medical (2) Nausea: Code(s): R11.0 - Nausea Category: Medical (3) Tinnitus: Code(s): H93.19 - Tinnitus, unspecified ear Category: Medical Plan Patient reports tinnitus is better, but if it persists I recommend ENT consult. Advised her to monitor closely. If she develops decreased hearing she needs to contact the office immediately for ENT consult. Her symptoms are consistent with vertigo. This could have been triggered by viral illness as that would explain not feeling well the week prior with diarrhe a and headaches. I am going to check a Lyme test. MCV was a little low at the ED so we will also repeat her CBC and get iron, ferritin, B12 and folate levels. Recommended PT for vestibular rehab. Given order for this today. Patient using Reglan for nausea which helps. Refilled medication. Encouraged meclizine 25 mg 3 times daily as needed for episodes. Advised not to drive or operate heavy machinery if this causes drowsiness or dizziness. She understands. Stay well hydrated. Rest. She has an appointment scheduled next week for a physical at which time she can be rechecked. Warning signs warranting re-evaluation at the ER reviewed. Orders: Orders Ferritin Today D64.9 - Anemia, unspecified, R42 - Dizziness and giddiness IRON PROFILE Today D64.9 - Anemia, unspecified, R42 - Dizziness and giddiness Lyme IgG/IgM w/reflex to WB Today R42 - Dizziness and giddiness TSH reflex Free T4 Today R42 - Dizziness and giddiness PT Evaluation and Treatment Today R42 - Dizziness and giddiness Complete Blood Count Auto Diff Today R42 - Dizziness and giddiness Vitamin B12 and Folate Today D64.9 - Anemia, unspecified, R42 - Dizziness and giddiness Medications: New meclizine 25 mg PO TID PRN 60 tabs 0RF dizziness metoclopramide HCl (Reglan) 5 mg PO QIDACHS PRN 60 tabs 1RF nausea and vomiting
[2025-06-19 10:17] VITALS: BP 114/72; PULSE 99; TEMP 36.6; O2SAT 98; BMI 48.1
--- OUTSIDE RECORDS SUMMARY | 2025-06-19 11:09 | XMS_ITS | Patient Health Record ---
Author Organization [facility] Address [address] [place] [address] Care Team Providers Care Plastics Nurse Name Role Phone Bernie Mercedes Primary Care Provider Artur Delaney Unavailable [phone] Reason For Referral No Information Problems Problem Type SNOMED Code ICD Code Onset Dates Problem Status W/U Status Risk Notes Problem Verruca plantaris (12250553) Verruca Plantaris (078.19) Active confirmed Problem Congenital pes planus (08531110) Flat Foot, Congenital (754.61) Active confirmed Plan Of Treatment Pending Test Test Name Order Date -10/05/2012 Insurance Providers Payer Name Payer Address Payer Phone Subscriber Number Group Number Insured Name Patient Relationship to Insured Coverage Start Date Coverage End Date [facility] [address] [place] [address] [id number] Yojana Cantor Self - patient is the insured Medical (General) History Medical History History ICD Code high blood pressure Surgical History Surgery Date(Month/Year) wisdom teeth extraction 07/02
--- OUTSIDE RECORDS SUMMARY | 2025-06-19 11:09 | XMS_ITS | Clinical Summary ---
Author Organization [facility] Address [address] [place] [address] Care Team Providers Care Flue Tile Press Operator Name Role Phone Sunni Earl MD Primary Care Provider [phone] Allergies No known active allergies Medications Medication [...] 78 02/26/2022 11:50 AM EDT Temperature 36.9 C (98.4 F) 02/26/2022 11:50 AM EDT Respiratory Rate - - Oxygen Saturation 100% [...] season) 2024 08/08/2021, 07/18/2021 Influenza Vaccine (#1) 2025 2, 10/25/2021, 09/16/2018 Hepatitis B Vaccines Completed 01/29/1994, 1993, 1993 Pneumococcal Vaccine Aged Out 05/22/2020 No long er eligible based on patient's age to complete this topic RSV Ped < 20 months Aged Out No longe r eligible based on patient's age to complete this topic Care Teams Flue Tile Press Operator Relationship Specialty Start Date End Date Sunni Earl MD PCP - General Internal Medicine 01/30/22
--- OUTSIDE RECORDS SUMMARY | 2025-06-19 11:09 | XMS_ITS | Data Portability ---
Author Organization [place] - [facility] Address [address] [place] [id number] Care Team Providers Care Computer Operations Supervisor Name Role Phone LYRIC CENTENO Primary Care [...] after care of this patient according to [facility]'s infection prevention protocols. Time On Scene with Patient: 00:27:47 [email or web address] Not available 10/18/2020 16:09:22 Plan of Treatment Reminders Order Date Submit Date Provider Last Modified By Organization Details Last Modified Time Details Appointments None recorded. 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 Procedures None recorded. Surgeries None recorded. Imaging None recorded. Medication Orders None recorded. Patient TargetsNo targets recorded. Patient Instructions Encounter Date Encounter Id Patient Instructions Last Modified By Organization Details Last Modified Time 10/18/2020 [id number] DRINK PLENTY OF FLUIDS YOUR FLU TEST [...] CARE Thank you for your visit with [facility] today. We cannot always find the exact [...] in your condition between 8am-10pm, please call [facility] at [phone] to help navigate your care. [email or web address] Not available 10/18/2020 15:51:14 Reason for Referral None Reported. Results Created Date Observation Date Name Description Value Unit Range Abnormal Flag Note LastModifiedBy Organization Detail LastModifiedTime 10/18/20 20 10/21/2020 SARS CoV 2 RNA (COVI D-19) , QL, industrial maintenance millwright-P CR, respi rator y speci men covid-19, VIOLETA Not Detec romina Refer ence range : Not Detec romina (NOTE ) This nucle ic acid ampli ficat ion test was devel oped and its perfo rmanc e alyssia cteri stics deter mined by [employer] [facility] Labor atori es. Nucle ic acid [...] Go To The Location Of Their Choice, [id number] 10/21/2020 23:03:06 10/18/20 20 10/18/2020 rapid flu (A+B) Flu A negati ve Not Available [facility] [address] [place] [address] Elena, [place], [address], 10/18/2020 15:49:08 10/18/20 20 10/18/2020 rapid flu (A+B) Flu B negati ve Not Available [facility] [address] [place], [address], 10/18/2020 15:49:08 10/18/20 20 10/18/2020 rapid flu (A+B) Control Visual ized / Valid Not Available [facility] - Home [address] [place], [address], 10/18/2020 15:49:08 Result Notes None recorded. Procedures Surgical History Date Name Laterality Status Provider Name and Address Organization Details Recorded Time pericardiostomy completed DOMITILA LEWIS [address] [place], [address], [place] [facility] 10/18/2020 15:36:46 Cholecystectomy completed DOMITILA LEWIS [address] [place], [address], [place] [facility] 10/18/2020 15:36:55 section completed DOMITILA LEWIS [address] [place], [address], [place] [facility] 10/18/2020 15:37:04 Imaging Results [...] blood by Pulse oximetry Respiratory rate Systolic And Diastolic Provider Name and Address Organization Details Last Updated DateTime 0 96.8 [degF] 100 /min 99 % 99 % 16 /min 136/80 mm[Hg] Not Available [facility] 0 15:35:29 Social History Question Answer Notes LastModified by Organizat ion Details LastModified Time Tobacco Smoking Status Current Every Day Smoker DOMITILA LEWIS [address] [place], [address], [place] [facility] 10/18/2020 15:35:24 Do You Have An Advance Directive? No [email or web address] Information not available 10/18/2020 What Is Your Code Status? Full Code [email or web address] Information not available 10/18/2020 Within The Past 12 Months, Has It Happened That The Food You Bought Just Didn't Last And You Didn't Have Money To Get More. No [email or web address] Information not available 10/18/2020 Within The Past 12 Months, Have You Worried That Your Food Would Run Out Before You Got Money To Buy More. No [email or web address] Information not available 10/18/2020 Fall Risk: Do You Feel Unsteady When Standing Or Walking? No [email or web address] Information not available 10/18/2020 We Know That How And When People Interact With Friends And Family Can Be Very Different From Person To Person. How Often Do You Have The Opportunity To See Or Talk To People That You Care About And Feel Close To? (Ex: Talking To Friends On The Phone Or Visiting Friends Or Family Or Going To [employer]ish Or Club Meetings) 5 Or More Times Per Week [email or web address] Information not available 10/18/2020 We Know From Many Of Our Patients That Covering All Of Their Costs Can Be Difficult At Times. This Can Cause Stress And Impact Health. In The Past Year, Have You Been Unable To Get Any Of The Following When It Was Really Needed? No [email or web address] Information not available 10/18/2020 What Is Your Housing Situation Today? I Have Housing Information not available 10/18/2020 Would You Like Help Connecting To Resources? None [email or web address] Information not available 10/18/2020 How Much Tobacco Do You Smoke? 0.5 PPD [email or web address] Information not available 10/18/2020 How Many Years Have You Smoked Tobacco? 8 [email or web address] Information not available 10/18/2020 Sex: Unknown Functional Status None recorded. Mental Status None recorded. Family History Relationship Description Onset Age of this Age Resolved Age Notes LastModified by Organization Details LastModified Time Father No current problems or disability [email or web address] Not available 10/18 15:35:18 Mother No current problems or disability Not available 10/18 15:35:18 Medical History Condition Response Diabetes N Coronary Artery Disease N High Cholesterol N Pulmonary Embolism N Cancer N Hypertension N Stroke N COPD N Depression Y Asthma Y Kidney Disease N Gynecological HistoryNo gynecological history recorded. Obstetrics History GPAL:G 0 P 0 0 0 0 Past Encounters Encounter ID Performer Location Encounter Start Date Encounter Closed Date Diagnosis/Indication Diagnosis SNOMED-CT Code Diagnosis ICD10 Code Diagnosis Note [id number] DOMITILA LEWIS [facility] [place] [facility] [address] [place] [address] 10/18/2020 15:15:29 10/22/2020 15:00:37 Diarrhea 37861549 R19.7 Pain in throat 111090522 R07.0 Nasal congestion 5393021 0 R09.81 Exposure t o communicable disease 750844239 Z20.828 Health Concerns Section Related Observation LastModified by Organization Detai ls LastModified Time None Recorded Concern Status LastModified by Organization Details LastModified Time None Recorded Advance Directives Directive N: Payers Insurance Date Sequence Insurance Name Policy Number Policy Guillaume Covered Member ID Guillaume Member ID Guarantor Name 06/05/[address] [facility] [id number] 10/18/2020 1 *SELF PAY* [facility] [id number] [facility] 06/05/2021 [address] [id number] [facility] [id number] [facility] [facility] 06/05/2021 [id number] [facility] [id number] [facility] OBGyn Episode No OBEpisode recorded.
--- OUTSIDE RECORDS SUMMARY | 2025-06-19 11:09 | XMS_ITS | Clinical Summary ---
Author Organization [facility] [address] [facility] [facility] [place] [address] Phone Care Team Providers Care Advanced Practice Professional Name Role Phone Sunni Earl MD Primary Care Provider [phone] Allergies Active Allergy Reactions Criticality Noted Date Comments Morphine GI intolerance,Nausea And Vomiting 1 Medications cyclobenzaprine HCl (FLEXERIL ORAL) Take 10 mg by mouth at bedtime. 2 Active albuterol HFA (PROAIR HFA ; PROVENTIL HFA ; VENTOLIN HFA) 90 mcg/actuation inhaler Inhale 1 puff by mouth Every 4 hours as needed. Active budesonide-formo teroL (SYMBICORT) 80-4.5 mcg/actuation inhaler Inhale 2 puffs by mouth 2 times daily. Active colchicine (COLCRYS) 0.6 mg tablet Take 1 tablet (0.6 mg total) by mouth daily. 1 Active hydroxychloroqui ne (PLAQUENIL) 200 mg tablet Take 1 tablet (200 mg total) by mouth 2 (two) times a day. Active ibuprofen (ADVIL,MOTRIN) 600 mg tablet Take 1 tablet (600 mg total) by mouth 4 times daily as needed. Active lamoTRIgine (LaMICtal) 25 mg tablet Take 3 tablets (75 mg total) by mouth 1 (one) time each day. 5 Active levonorgestreL (Liletta) 20.4 mcg/24 hr (8 yrs) 52 mg intrauterine device IUD 1 each (52 mg total) by intrauterine route 1 (one) time. 9 Active LORazepam (ATIVAN) 0.5 mg tablet Take 1 tablet (0.5 mg total) by mouth 1 (one) time each day. Max Daily Amount: 0.5 mg Active metoclopramide (Reglan) 5 mg tablet Take 1 tablet (5 mg total) by mouth 1 (one) time each day if needed for nausea. 4 Active mycophenolate (CELLCEPT) 500 mg tablet Take three in the AM and two in the PM 3 Active propranoloL (INDERAL) 20 mg tablet Take 0.5 tablets (10 mg total) by mouth 1 (one) time. Active Active Problems Problem Noted Date Diagnosed Date Bipolar disorder in partial remission ([facility] V 24) 05/02/2025 Cervical lymphadenopathy 05/02/2025 Depression 05/02/2025 Hypertension 05/02/2025 Microcytic hypochromic anemia 05/02/2025 Obstructive sleep apnea 05/02/2025 Restless leg syndrome 05/02/2025 Severe obesity (CMS/HCC V24, [facility] V28) 2024 Systemic sclerosis (CMS/HCC V24, [facility] V28) Tenosynovitis, de Quervain 06/15/2022 Overview (05/02/2025): Outside Source Comment: Overview: Exam consistent with Dequervain's Injection today Right DeQuervains Risks and benefits discussed . Under sterile conditions and with verbal consent the radail wrist over first dorsal extensor tendon si te was cleaned with iodine and alcohol, then injected w/ 0.25mL lidocaine 1% and depo-medrol 20 mg using a 27G 0.5 needle without complications. Bandage applied. Patient tolerated the procedure well w/o immediate complications. Counseled about monitoring for increased pain, swelling, warmth, or redness in the area. Recommend she obtain thumb soft neoprene OTC CMC splint to use prn Last Assessment & Plan: Exam consistent with Dequervain's Injection today Right DeQuervains Risks and benefits discussed . Under sterile conditions and with verbal consent the radail wrist over first dorsal extensor tendon site was cleaned with iodine and alcohol, then injected w/ 0.25mL lidocaine 1% and depo-medrol 20 mg using a 27G 0.5 needle without complications. Bandage applied. Patient tolerated the procedure well w/o immediate complications. Counseled about monitoring for increased pain, swelling, warmth, or redness in the area. Exam consistent with Dequervain's Injection today Right DeQuervains Risks and benefits discussed . Under sterile conditions and with verbal consent the radail wrist over first dorsal extensor tendon site was cleaned with iodine and alcohol, then injected w/ 0.25mL lidocaine 1% and depo-medrol 20 mg using a 27G 0.5 needle without complications. Bandage applied. Patient tolerated the procedure well w/o immediate complications. Counseled about monitoring for increased pain, swelling, warmth, or redness in the area. Recommend she obtain thumb soft neoprene OTC CMC splint to use prn Vitamin D deficiency 06/15/2022 Overview (05/02/2025): Outside Source Comment: Overview: Mild Vit D deficiency (22) currently being supplemented with 50,000 IU weekly X 12 weeks Pt will continue Vit D3 OTC 2000 IU once she completes supplementation Will plan to repeat Vit D next f/u Last Assessment & Plan: Mild Vit D deficiency (22) currently being supplemented with 50,000 IU weekly X 12 weeks Pt will continue Vit D3 OTC 2000 IU once she completes supplementation Will plan to repeat Vit D next f/u Arthralgia 05/26/2022 Overview (05/02/2025): Widespread arthralgias increased past 8 months. No synovitis. Newly pos Anti- centromere, but no sclerodacltly on exam. Unclear if symptoms are due to SLE or FM Normal X Rays of hands in 2020 Check labs today. Raynaud's disease 05/26/2022 Overview (05/02/2025): Hx of Raynauds currently with mild symptoms In past Nifedipine was not tolerated. Currently on Amlodipine which will be continued Outside Source Comment: Overview: Hx of Raynauds currently with mild symptoms In past Nifedipine was not tolerated. Currently on Amlodipine which will be continued Last Assessment & Plan: Hx of Raynauds currently with mild symptoms In past Nifedipine was not tolerated. Currently on Amlodipine which will be continued Alpha thalassemia trait 03/13/2022 Overview (05/02/2025): See heme consult note; /dr. Cage Fibromyalgia 06/21/2020 Overview (05/02/2025): Outside Source Comment: Overview: Carries diagnosis of FM which appears accurate with hx of widespread pain and mood disor dominic and presence of FM tender points and allodynia on exam Currently on gabapentin and Cymbalta, Lamictal and Motrin I will continue Gabapentin for now She reports recent increase in LFTs, would recommend holding Motrin until I can review hospital notes and check UTD LFTs Last Assessment & Plan: FM with hx of widespread pain mood disorder, poor sleep and presence of FM tender points and allodynia on exam Currently on Cymbalta, Lamictal and Motrin Pt to maintain close f/u with psych Encouraged daily exercise Pericarditis 05/15/2019 Overview (05/02/2025): History of pericardial effusion with tamponade in 05/15/2019 unclear etiology Treated initially treated with high dose prednisone as thought to be due to SLE but then changed to colchicine and Motrin when machine tool operator did not find any measure of active SLE on labs Followed by farm tractor operator at [facility], I will try to retrieve cardiology notes for review. Iron deficiency anemia 04/22/2019 SLE (systemic lupus erythema tosus) ([facility] V24, [facility] V28) 03/02/2018 Overview (05/02/2025): 27 yo female with hx of pos MEGHAN, pos DsNA and pos Anti Centromere Ab Treated for SLE since 09/2019 with Plaquenil. She also has hx FM on Gabapentin and Motrin Hx complicated by Pericardial effusion, but unclear etiology. Previous rheum, Dr Bailey did not feel this was related to SLE Pt. reports recent increase in joint arthralgias and swelling since she had Covid in 09/2019 however symptoms have increased since 03/14 for which she has been tx'd with 3 separate medrol pacs per PCP which have not been helpful. There is no synovitis on exam today, but does have multiple tender joints and also FM tender points with allodynia Will need additional labs today to redefine illness and to measure disease activity I will try to retrieve copy of most recent hospitalization from [facility] for reviewe She will see me back in 3-4 weeks to review Acanthosis nigricans 07/23/2015 Bipolar disorder ([facility] V24, [facility] V28) 06/25 Overview (05/02/2025): Follows with Dr Villafana Tobacco dependence 10/05/2013 Encounters Date Type Department Care Team Description 05/02/2025 10:00 AM EDT Office Visit Obstetrics and Gynecology - [address] [phone] Serjio Blandon CNM Encounter for annual routine gynecological examination (Primary Dx); IUD (intrauterine device) in place from Last 3 Months Surgical History Surgery [...] john thematosus SLE (systemic lupus erythema tosus) ([facility] V24, [facility] V28) 03/02/2018 DX:SLE (systemic lupus eryt hematosus) ([facility]); COMMENT: 09/2017- started HCQ with Dr. 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, SM, SSA/SSB, normal C3/C4 Morbid obesity with BMI of 4 5.0-49.9, adult ([facility] V24, [facility] V28) 07/11/2015 DX:Morbid obesity wit h BMI of 45.0-49.9, adult ([facility]) Fibromyalgia 06/21/2020 DX:Fibromyalgia Pneumonia 06/21/2020 DX:Pneumonia; CO MMENT: Community acquired IP admit 05/20-05/23/20 Pericardial effusion 05/15/2019 DX:Pericard ial effusion; COMMENT: IP Admit 05/20 - 05/23/20- Pericardial effusion, IV Abx, whth resolution, 04/2019 Pericardial window Bipolar disorder ([facility] V2 4, [facility] V28) 07/23/2015 DX:Bipolar disorder ([facility]); C OMMENT: Follows with Dr Villafana Tobacco [...] = 0.6 oz pur e alcohol) Comments No Sex and Gender Information Value Date Recorded Sex Assigned at Not on file Legal Sex Female 7:15 AM EST Gender Identity Not on file Sexual Orientation Not on file Occupation Industry Job Start Date Job End Date [employer] Not on file Not on file Not on file Obstetrics History Para Term AB IAB SAB Ectopic Multiple Livin g Live Births 1 Date Outcome GA Total Labor Labor/2nd/3rd Weight Sex Type Anes PTL Annalisa A1 A5 Name Clin CS-Un spec Complications:Failure to Pro christiano in First Stage,Pre-eclampsia,Lupus erythematosus,White classification A2 gestational diabetes mellitus (GDM) [place] [place] Last Filed Vital Signs Vital Sign Reading Time Taken Comments Blood Pressure 122/88 05/02/2025 9:53 AM EDT Pulse 101 05/02/2025 9:53 AM EDT Temperature - - Respiratory Rate - - Oxygen Saturation - - Inhaled Oxygen Concentration - - Weight 130 kg (286 lb) 05/02/2025 9:53 AM EDT Height 165.1 cm (5' 5 ) 03/24/2024 3:24 PM EDT Body Mass Index 47.59 03/24/2024 3:24 PM EDT Plan of Treatment Health Maintenance Due Date Last Done Comments Pneumococcal Vaccine: Pediatrics (0 to 5 Years) and At-Risk Patients (6 to 49 Years) (2 of 2 - PCV) 05/22/2021 05/22/2020 COVID-19 Vaccine (3 - Pfizer risk series) 09/05/2021 08/08/2021, 07/18/2021 Cholesterol Screening (Lipid Panel) 10/31/2022 HIV Screening 10/31/2022 Social Influencers of Health Screening 10/31/2022 Depression Screening 11/23/2024 Influenza Vaccine (#1) 2025 , 10/25/2021, 09/16/2018 Cervical Cancer Screening: HPV 02/18/2026 Cervical Cancer Screening: Pap Smear 02/18/2026 02/18/2023 Hypertension/CHF/CAD Annual BMP Blood Test 03/30/2026 03/30/2025, 01/06/2025, 08/02/2024, Additional history exists DTaP,Tdap,and Td Vaccines (9 - Td or Tdap) 08/19/2028 08/19/2018, 09/10/2010, 06/07/2003, Additional history exists Hepatitis B Vaccines Completed 01/29/1994, 1993, 1993 HIB Vaccines Completed 08/22/1994, 06/1993, 1993, Additional history exists IPV Vaccines Completed 03/21/1998, 07/26, 08/22/1994, Additional history exists MMR Vaccines Completed 03/21/1998, 08/22/1994 Meningococcal ACWY Vaccine Aged Out 04/09/2007 N o longer eligible based on patient's age to complete this topic HPV Vaccines Completed 08/30/2008, 05/23, 04/09/2007 Varicella Vaccines Completed 09/10/2010, 03/24/2000 Hepatitis C Screening Completed 12/29/2022 Hepatitis A Vaccines Aged Out No long [...] RESULTING AGENCY - 03/02/2023 6:41 AM EDT [id number] THINPREP PAP, IMAGED: NEGATIVE FOR SQUAMOUS INTRAEPITHELIAL [...] Most Recently Relevant to Health [place] [id number] [facility]) Care Teams Advanced Practice Professional Relationship Specialty Start Date End Date Sunni Earl MD PCP - General Internal Medicine 01/30/22
--- OUTSIDE RECORDS SUMMARY | 2025-06-19 11:09 | XMS_ITS | Encounter Summary ---
Author Organization [facility] Address [address] [place] [address] [place] [id number] Phone Care Team Providers Care Forensic Pathologist Name Role Phone Sunni Luis MD Primary Care Provider Encounter Details Date Type Department Care Team (Late Contact Info) Description 09/26/2024 Procedure [facility] [address] [place] [address] Social History Tobacco Use Types Packs/Day Years Used Date Smoking Tobacco: Former Cigarettes Smokeless Tobacco: Never Education Answer Date Recorded Are you interested in more education? Not on jose carlos e 2023 Are you concerned about learning? Not on file 2023 No 2023 No 2023 Digital Access Answer Date Recorded No 04/15/2023 No 04/15/2023 Reliable internet access at home? Not on file 04/15/2023 Device with a working camera? Not on file Comments Unknown Sex and Gender Information Value Date Recorded Sex Assigned at Not on file Legal Sex Female 8:28 AM EDT Gender Identity Not on file Sexual Orientation Not on file documented as of this encounter Plan of Treatment Upcoming Encounters Date Type Department Care Team (Late Contact Info) Description 06/21/2025 11:00 AM EDT Office Visit [facility] [address] [place] [address] Krysta Landeros MD [address] [place] [address] [email or web address] 12/12/2025 1:00 PM EST Office Visit [facility] Cardiovascular Medicine [address] [facility], [address]th [address], [address] [place] [address] Martin Minaya MD, MS [address] [place] [address] [email or web address] documented as of this encounter Visit Diagnoses Not on filedocumented in this encounter Care Teams Forensic Pathologist Relationship Specialty Start Date End Date Sunni Luis MD PCP - General Internal Medicine 05/22/22 documented as of this encounter Additional Source Comments The information contained in this document represents components of the legal health record. It is not the complete legal health record.[facility]
== END 2025-06-19 11:21 | disposition home or self-care (01) ==
LOC: HO.HMCFM 10:09
PROVIDERS: PCP Internal Medicine; Visit Provider Physician Assistant Medical
DX: R42 Dizziness and giddiness (principal); R11.0 Nausea; H93.19 Tinnitus, unspecified ear

== ENCOUNTER 2025-06-19 11:20 | Outpatient (REF) | payer BC, SELFPAY ==
[2025-06-19 15:00] LABS: MANUAL DIFF FLAG NO
[2025-06-19 15:02] LABS: Hematocrit 43.4 % (37.0-47.0); Hemoglobin 13.8 g/dl (12.0-16.0); Imm Gran Abs Auto 0.02 X10*3/uL (0.00-0.03); Imm Gran Pct Auto 0.3 % (0.0-0.4); Lymphocytes Absolute Auto 2.1 X10*3/uL (1.2-4.9); Mean Corpuscular HGB Conc 31.8 g/dl (31.0-35.0); Mean Corpuscular Hemoglobin 25.3 pg (27.0-33.0); Mean Corpuscular Volume 79.6 fL (80.0-98.0); NRBC Abs Auto 0.000 X10*3/uL (0.0-0.012); NRBC Pct Auto 0.0 /100WBC (0.0-0.2); Platelet Count 273 X10*3/uL (160-400); Red Blood Count 5.45 X10*6/uL (4.20-5.50); White Blood Count 6.7 X10*3/uL (4.8-10.8)
[2025-06-19 15:32] LABS: Iron 39 mcg/dL (30-160); Percent Iron Saturation 15 % (15-50); Total Iron Binding Capacity 267 mcg/dL (228-428); Unsaturated Iron Binding 228 ug/dL
[2025-06-19 15:36] LABS: Ferritin 104 ng/mL (10-122)
[2025-06-19 15:58] LABS: Folate 6.6 ng/mL (> or = 4.0); Vitamin B12 388 pg/mL (200-900)
[2025-06-21 05:38] LABS: Lyme Abs Screen <0.90 index
== END 2025-06-19 11:21 | disposition home or self-care (01) ==
LOC: HO.WFDLDS 11:20
PROVIDERS: Physician Assistant Medical; Visit Provider Nurse Practitioner Family
DX: R42 Dizziness and giddiness (principal); R11.0 Nausea; D64.9 Anemia, unspecified; H93.19 Tinnitus, unspecified ear
CPT/HCPCS: 36415; 82607; 82728; 82746; 83540; 84443; 85025; 86617; 86618

== ENCOUNTER 2025-06-26 14:05 | Outpatient (AMB) | payer BC, SELFPAY ==
--- OUTSIDE RECORDS SUMMARY | 2025-06-26 14:14 | XMS_ITS | Clinical Summary ---
Author Organization [facility] [address] Address [address] [facility] [address] Phone Care Team Providers Care Party Host Name Role Phone Sunni Earl MD Primary Care Provider [phone] Allergies Active Allergy Reactions Criticality Noted Date [...] Diagnosed Date Bipolar disorder in partial remission ([facility] V 24) 05/02/2025 Cervical lymphadenopathy 05/02/2025 Depression 05/02/2025 Hypertension 05/02/2025 Microcytic hypochromic anemia 05/02/2025 Obstructive sleep apnea 05/02/2025 Restless leg syndrome 05/02/2025 Severe obesity (CMS/HCC V24, CMS/[facility] V28) 2024 Systemic sclerosis (CMS/HCC V24, [facility] V28) Tenosynovitis, de Quervain 06/15/2022 Overview (05/02/2025): [...] then changed to colchicine and Motrin when slubber hand did not find any measure of active SLE on labs Followed by belt notcher at [facility], I will try to retrieve cardiology notes for review. Iron deficiency anemia 04/22/2019 SLE (systemic lupus erythema tosus) ([facility] V24, [facility] V28) 03/02/2018 Overview (05/02/2025): 27 yo female [...] retrieve copy of most recent hospitalization from [facility] for reviewe She will see me back in 3-4 weeks to review Acanthosis nigricans 07/23/2015 Bipolar disorder ([facility] V24, [facility] V28) 06/25 Overview (05/02/2025): Follows with Dr Villafana Tobacco dependence 10/05/2013 Encounters Date Type Department Care Team Description 05/02/2025 10:00 AM EDT Office Visit Obstetrics and Gynecology - [address] [phone] Serjio Blandon CNM Encounter for annual routine [...] DX:Varicose vein s Lupus erythematosus 03/02/2018 DX:Lupus jhon thematosus SLE (systemic lupus erythema tosus) ([facility] V24, [facility] V28) 03/02/2018 DX:SLE (systemic lupus eryt hematosus) ([facility]); COMMENT: 09/2017- started HCQ with Dr. Fry, + dsDNA and MEGHAN, neg [employer]OR, SM, SSA/SSB, normal C3/C4 Morbid obesity with BMI of 4 5.0-49.9, adult ([facility] V24, [facility] V28) 07/11/2015 DX:Morbid obesity wit h BMI of 45.0-49.9, adult ([facility]) Fibromyalgia 06/21/2020 DX:Fibromyalgia Pneumonia 06/21/2020 DX:Pneumonia; CO MMENT: Community acquired IP admit 05/20-05/23/20 Pericardial effusion 05/15/2019 DX:Pericard ial effusion; COMMENT: IP Admit 05/20 - 05/23/20- Pericardial effusion, IV Abx, whth resolution, 04/2019 Pericardial window Bipolar disorder ([facility] V2 4, [facility] V28) 07/23/2015 DX:Bipolar disorder ([facility]); C OMMENT: Follows with Dr Villafana Tobacco [...] Industry Job Start Date Job End Date [employer] Not on file Not on file Not on file Obstetrics History Para Term AB IAB SAB Ectopic Multiple Livin g Live Births 1 Date Outcome GA Total Labor Labor/2nd/3rd Weight Sex Type Anes PTL Annalisa A1 A5 Name Clin CS-Un spec Complications:Failure to Pro christiano in First Stage,Pre-eclampsia,Lupus erythematosus,White classification A2 gestational diabetes mellitus (GDM) [place] [place] Last Filed Vital Signs Vital Sign Reading [...] RESULTING AGENCY - 03/02/2023 6:41 AM EDT [id number] THINPREP PAP, IMAGED: NEGATIVE FOR SQUAMOUS INTRAEPITHELIAL [...] to Health [place] [id number] [facility] ([facility]) Care Teams Party Host Relationship Specialty Start Date End Date Sunni Earl MD PCP - General Internal Medicine 01/30/22
--- OUTSIDE RECORDS SUMMARY | 2025-06-26 14:14 | XMS_ITS | Encounter Summary ---
Author Organization [facility] Address [address] [place] [address] [place] [address] Phone Care Team Providers Care Unit Trust Manager Name Role Phone Sunni Luis MD Primary Care Provider Encounter Details Date Type Department Care Team (Late st Contact Info) Description 09/26/2024 Procedure Pass [facility] Echo Lab [address] [place] [address] Social History Tobacco Use Types Packs/Day Years [...] Care Team (Late Contact Info) Description 06/21/2025 [facility] [address] [place] [address] 11/08/2025 11:00 AM EST [facility]ment [facility] [address] [place] [address] Krysta Landeros MD [address] [place] [address] [email or web address] 11/08/2025 1:00 PM EST Office Visit [facility] [place] [address] [place] [address] Krysta Landeros MD [address] [place] [address] [email or web address] 12/12/2025 1:00 PM EST Office Visit [facility] Cardiovascular Medicine [address] [place] [address], 5th Floor, [address] [place] [address] Martin Minaya MD, [place] [address] [place] [address] [email or web address] documented as of this encounter Visit Diagnoses Not on filedocumented in this encounter Care Teams Unit Trust Manager Relationship Specialty Start Date End Date Sunni Luis MD PCP - General Internal Medicine 05/22/22 documented as of this encounter Additional Source Comments The information contained in this document represents components of the legal health record. It is not the complete legal health record.[facility]
--- OUTSIDE RECORDS SUMMARY | 2025-06-26 14:14 | XMS_ITS | Patient Health Record ---
Author Organization [facility] Address [address] [place] [address] Care Team Providers Care Munitions Worker Name Role Phone Bernie Mercedes Primary Care Provider Artur Delaney Unavailable [phone] Reason For Referral No Information Problems Problem Type SNOMED Code ICD Code Onset Dates Problem Status W/U Status Risk Notes Problem Verruca plantaris (83703754) Verruca Plantaris (078.19) Active confirmed Problem Congenital pes planus (09095277) Flat Foot, Congenital (754.61) Active confirmed Plan Of Treatment Pending Test Test Name Order Date -10/05/2012 Insurance Providers Payer Name Payer Address Payer Phone Subscriber Number Group Number Insured Name Patient Relationship to Insured Coverage Start Date Coverage End Date [facility] [address] [place] [address] [id number] Yojana Cantor Self - patient is the insured Medical (General) History Medical History History ICD Code high blood pressure Surgical History Surgery Date(Month/Year) wisdom teeth extraction 07/02
--- OUTSIDE RECORDS SUMMARY | 2025-06-26 14:14 | XMS_ITS | Clinical Summary ---
Author Organization [facility] Address [address] [place] [address] Care Team Providers Care Correction Lieutenant Name Role Phone Sunni Earl MD Primary Care Provider [phone] Allergies No known active allergies Medications Medication [...] age to complete this topic Care Teams Correction Lieutenant Relationship Specialty Start Date End Date Sunni Earl MD PCP - General Internal Medicine 01/30/22
--- NOTE | 2025-06-26 14:23 | MHC.PC.OV ---
Vital Signs 06/26/25 14:27 Height 5 ft 5 in Weight 294 lb 6 oz BMI 49.0 BP 133/77 Blood Pressure Location Rt brachial Position Sitting Respiration 14 Pulse 95 Pulse Source Pulse Oximeter Pulse Oximetry (%) 99 Oxygen Delivery Method Room Air Intake Visit Reasons: Physical Intake Note: Physical. Rhematologsit Dr Beckham wants pt to take Amlodipine 2.5 once daily. Pt hasnt started yet. Anodizing Line Operator Required: No Allergies Opioids - Morphine Analogues Allergy (Severe, Verified 06/26/25 14:24) Vomiting Tobacco use date assessed: 06/19/25 Dental Screening Dental Screen Date: 06/19/25 HPI HPI Comments History of Present Illness Details This is a 30 year old female with a past medical history of SLE, scleroderma, anxiety, bipolar depression, SOFYA presenting for physical exam SLE: Follows at [facility]. Complicated by lupus percarditis. Had holter reassuring. Also has former diagnosis of fibromyalgia. Flares of myalgia, arthralgia, radiculopathy. On cellcept, HCQ. Unable to sustain daily work. Following with ortho for knee pain Bipolar: Fairly stable. Depression can worsen intermittently. Sometimes overwhelmed with multiple medical issues. Sees psychiatry and therapist. She is on lamictal, ativan. Constipation is stable. Had EGD last year. Underwent ERCP was delayed -had In March. Ending up needing a sphincteromoty. Feeling improvemed. At our last visit requested referral to pulm and breathing studies. She was evaluated last fall in the ER for shortness of breath. Using an albuterol inhaler was very helpful for symptoms. She stopped smoking marijuana. She cut back on cigarettes -down to 4-5 per day UTD with gynecology-06/26/2025 ROS see HPI PHYSICAL EXAM: GENERAL: Alert and oriented x 3. NAD EYES: EOMI. Anicteric. HENT: Moist mucous membranes. LUNGS: Clear to auscultation bilaterally. CARDIOVASCULAR: Regular rate and rhythm. No murmur. No JVD. ABDOMEN: Soft, non-tender MSK: Tenderness palpation posterior knee EXTREMITIES: No edema. Non-tender. NEUROLOGIC: No focal neurological deficits. CN II-XII grossly intact PSYCHIATRIC: Cooperative. Appropriate mood and affect [facility] Medical History Tinnitus Nausea Vertigo Generalized pruritus Vitamin D deficiency Sphincter of Oddi dysfunction SLE (systemic lupus erythematosus related syndrome) Restless leg syndrome Raynauds disease Radial styloid tenosynovitis Pericarditis Obstructive sleep apnea Microcytic hypochromic anemia HTN (hypertension) Gestational diabetes Fibromyalgia Depression Cervical lymphadenopathy Bipolar disorder Acanthosis Abdominal pain Surgical History H/O wisdom tooth extraction S/P ERCP Family History Father Bipolar 1 disorder Substance use Mother Alcoholism Other FH: mental illness Social History Housing: Apartment Alcohol intake: never Patient Tobacco Use Status: Current everyday Tobacco user Tobacco use type: Cigarette Cigarettes Per Day: 10 Years Smoked: 12 e-Cigarette/Vaping Use: Never Used Second Hand Smoke Exposure: Yes service: No Current occupational status: employed and unemployed Cognitive needs: No Hearing needs: No Vision needs: No Questionnaire Thrive Questionnaire Date Thrive assessed: 12/14/24 I am a: Patient What is your living situation today?: I have a steady place to live Within the past 12 months, did the food you bought not last and you didn't have the money to get more?: I choose not to answer this question Within the past 12 months, did you worry whether your food would run out before you got money to buy more?: I choose not to answer this question Do you have trouble paying for medicines?: I choose not to answer this question Do you have trouble getting transportation to medical appointments?: I choose not to answer this question Do you have trouble paying your heating and electricity bill?: I choose not to answer this question Do you have trouble taking care of your child, family member or friend?: I choose not to answer this question Do you have trouble with day-to-day activities such as bathing, preparing meals, shopping, managing finances, etc.?: I choose not to answer this question Are you currently unemployed and looking for a job?: No Are you interested in more education?: No Please select the resources that you would like help with: None Currently or been in a relationship where the following occur: No concerns reported THRIVE Score: 0 MAHAMED-7 AMB Questionnaire MAHAMED-7 Date MAHAMED - 7 assessed: 08/09/24 Source: Developed by Drs. Remigio Swan, Juliana Milan, Cristian Tripathi and colleagues, with an educational helena from [employer]. Physical exam (Primary Care) Vital Signs: Last Vital Signs Pulse 95 06/26/25 14:27 Resp 14 06/26/25 14:27 BP 133/77 06/26/25 14:27 Pulse Ox 99 06/26/25 14:27 Oxygen Delivery Method Room Air 06/26/25 14:27 BMI result Body Mass Index 49.0 Tobacco/Smoking Status: Tobacco use Status Tobacco use date assessed 06/19/25 06/26/25 14:32 Patient Tobacco Use Status Current everyday Tobacco 06/26/25 14:32 Tobacco use type Cigarette 06/26/25 14:32 e-Cigarette/Vaping Use Never Used 06/26/25 14:32 Thrive Assessment: Date of Thrive Assessment Date Thrive assessed 12/14/24 06/26/25 14:32 Currently or been in a relationship where the following occur: No concerns reported Coding Level of Care Code Est Pt Prev Care 18-39y([address]4414) Diagnoses Physical exam Z00.00 Systemic lupus erythematosus (SLE) with pericarditis, unspecified SLE type M32.12 Systemic lupus erythematosus type: unspecified Systemic lupus erythematosus organ involvement: pericarditis Bipolar disorder, in partial remission, most recent episode depressed F31.75 Active/Remission status: in partial remission Most recent bipolar episode type: depressed Sphincter of Oddi dysfunction K83.4 Assessment & Plan Assessment & Plan (1) Physical exam: Code(s): Z00.00 - Encounter for general adult medical examination without abnormal findings (2) Lupus (systemic lupus erythematosus): Code(s): M32.9 - Systemic lupus erythematosus, unspecified Category: Medical Qualifiers: Systemic lupus erythematosus type: unspecified Systemic lupus erythematosus organ involvement: pericarditis Qualified Code(s): M32.12 - Pericarditis in systemic lupus erythematosus (3) Bipolar disorder: Code(s): F31.9 - Bipolar disorder, unspecified Category: Medical Qualifiers: Active/Remission status: in partial remission Most recent bipolar episode type: depressed Qualified Code(s): F31.75 - Bipolar disorder, in partial remission, most recent episode depressed (4) Sphincter of Oddi dysfunction: Code(s): K83.4 - Spasm of sphincter of Oddi Category: Medical Plan 30 year old female for CPE Interval history reviewed HTN well controllled Lupus-continues follow up Valium for recent vertigo Medications: New prednisone 40 mg (2 x 20 mg) PO DAILY 10 tabs 0RF diazepam (Valium) 2 mg PO BID PRN 20 tabs 0RF persistent vertigo R42 - Dizziness and giddiness
[2025-06-26 14:27] VITALS: BP 133/77; PULSE 95; RESP 14; O2SAT 99; BMI 49.0
== END 2025-06-26 14:52 | disposition home or self-care (01) ==
LOC: HO.HMCFM 14:06
PROVIDERS: PCP Internal Medicine; Visit Provider Internal Medicine
DX: Z00.00 Encounter for general adult medical examination without abnormal findings (principal); M32.12 Pericarditis in systemic lupus erythematosus; F31.75 Bipolar disorder, in partial remission, most recent episode depressed; K83.4 Spasm of sphincter of Oddi

== ENCOUNTER 2025-08-04 14:04 | Outpatient (AMB) | payer BC, SELFPAY ==
[2025-08-04 14:11] VITALS: BP 122/70; PULSE 98; O2SAT 100; BMI 48.2
--- NOTE | 2025-08-04 14:11 | A.OFFVIS_ITS ---
Vital Signs 08/04/25 14:11 Height 5 ft 5 in Weight 289 lb 8 oz BMI 48.2 BP 122/70 Blood Pressure Location Rt radial Position Sitting Pulse 98 Pulse Source Pulse Oximeter Pulse Oximetry (%) 100 Oxygen Delivery Method Room Air Intake Visit Reasons: dyspnea on exertion: 6 month f/u Allergies Opioids - Morphine Analogues Allergy (Severe, Verified 08/04/25 14:14) Vomiting HPI HPI dyspnea on exertion: 6 month f/u: Details: Yojana is a pleasant 30 year old female, current 12 pack year smoker with underlying asthma, lupus, scleroderma, raynaud's, h/o pericardial effusion s/p pericardial window and recurrent pericarditis last November 2022. She is under the care of cardiology and rheumatology at [facility]. Since the last visit patient has made diet changes and increased activity walking upwards of a mile frequently during the week without any respiratory symptoms. She has lost a total of 10 lbs and has had noticeable improvements in overall energy levels. She has been using Symbicort consistently and currently denies any respiratory symptoms. She unfortunately continues to smoke and is considering smoking cessation. She denies any urgent care visits or ER visits related to respiratory distress however was evaluated at [place] for palpitations and chest discomfort without any significant findings. [facility] Medical History Tinnitus Nausea Vertigo Generalized pruritus Vitamin D deficiency Sphincter of Oddi dysfunction SLE (systemic lupus erythematosus related syndrome) Restless leg syndrome Raynauds disease Radial styloid tenosynovitis Pericarditis Obstructive sleep apnea Microcytic hypochromic anemia HTN (hypertension) Gestational diabetes Fibromyalgia Depression Cervical lymphadenopathy Bipolar disorder Acanthosis Abdominal pain Surgical History H/O wisdom tooth extraction S/P ERCP Family History Father Bipolar 1 disorder Substance use Mother Alcoholism Other FH: mental illness Social History (Updated 08/04/25 @ 14:14 by Kanchan Cabrera CMA) Housing: Apartment Alcohol intake: never Patient Tobacco Use Status: Current everyday Tobacco user Tobacco use type: Cigarette Cigarette Packs Per Day: 0.5 Cigarettes Per Day: 10 Years Smoked: 12 e-Cigarette/Vaping Use: Never Used Second Hand Smoke Exposure: Yes service: No Current occupational status: employed and unemployed Cognitive needs: No Hearing needs: No Vision needs: No Review of Systems Const Denies chills, Denies excessive sweating, Denies fever(s), Denies headache(s) and Denies night sweats Eyes Denies dry eyes, Denies irritation and Denies itchy eyes ENT Reports Normal hearing present, Denies headache(s), Denies nasal congestion, Denies nasal discharge, Denies post nasal drip and Denies sore throat Card Denies chest pain, Denies chest pain at rest, Denies chest pain with activity, Denies claudication, Denies leg edema, Denies dyspnea, Denies dyspnea on exertion, Denies orthopnea and Denies paroxysmal nocturnal dyspnea Resp Denies chest congestion, Denies cough, Denies excessive phlegm production, Reports pain on inspiration, Denies dyspnea, Denies dyspnea on exertion, Denies stridor and Denies wheezing Musc Denies myalgias Neuro Reports Normal hearing present and Denies headache(s) Endo Denies excessive sweating Miller/Lymph Denies lymphadenopathy Aller/Immun Denies itchy eyes, Denies seasonal rhinorrhea and Denies wheezing Physical Exam Vital Signs: Last Vital Signs Pulse 98 08/04/25 14:11 BP 122/70 08/04/25 14:11 Pulse Ox 100 08/04/25 14:11 Oxygen Delivery Method Room Air 08/04/25 14:11 BMI result Body Mass Index 48.2 Const General: cooperative, healthy appearing, comfortable, no acute distress, well developed and alert Nutritional Appearance: obese Orientation/consciousness: patient oriented x3 Limitations: no limitations HEENT Head: Yes normal to inspection, Yes normocephalic and Yes atraumatic Ears: hearing grossly normal bilaterally and external ears normal Eyes General: appearance normal, both eyes and all related structures Eyelids: Yes eyelids normal Sclerae: sclerae normal EOM: EOMs intact bilaterally Neck Neck: Yes normal visual inspection and Yes no lymphadenopathy Lymphatic: no lymphadenopathy noted Chest Chest palpation & inspection: normal inspection of the chest Resp Effort & Inspection: normal respiratory effort, able to speak in complete sentences, no audible wheezes, no cough, no stridor, not tachypneic, no tripod positioning and no use of accessory muscles Auscultation: clear to auscultation bilaterally Cardio Jugular venous distension: no JVD Rate: regular rate Rhythm: regular rhythm Skin Other: warm, dry General skin exam: no rashes or lesions noted Neuro General: patient oriented x3 Cranial nerves: Yes Normal hearing present Cognition (Neuro): normal cognition Gait exam (Neuro): Normal gait present Extrem General: Yes normal to inspection, Yes capillary refill normal, Yes no clubbing, cyanosis or edema and Yes no pedal edema Psych Appearance: grossly normal and well kempt Speech and movement: Normal speech and movement present and Clear speech present Affect: normal affect Attitude: cooperative Thought process: Normal thought process present Thought content: Normal thought content present Insight: Good insight present (Psych) Judgement: Good judgement present (Psych) Assessment & Plan Assessment & Plan (1) Asthma: Code(s): J45.909 - Unspecified asthma, uncomplicated Category: Medical (2) Pleuritic pain: Code(s): R07.81 - Pleurodynia Category: Medical (3) Lupus (systemic lupus erythematosus): Code(s): M32.9 - Systemic lupus erythematosus, unspecified Category: Medical Qualifiers: Systemic lupus erythematosus organ involvement: pericarditis Systemic lupus erythematosus type: unspecified Qualified Code(s): M32.12 - Pericarditis in systemic lupus erythematosus (4) History of pericarditis: Code(s): Z86.79 - Personal history of other diseases of the circulatory system Category: Medical (5) Scleroderma: Code(s): M34.9 - Systemic sclerosis, unspecified Category: Medical (6) Obesity: Code(s): E66.9 - Obesity, unspecified Category: Medical Qualifiers: Body mass index: BMI 40.0-44.9 Obesity classification: adult class 3 (BMI >= 40) Obesity type: due to excess calories Serious obesity comorbidity presence: unspecified whether serious comorbidity present Qualified Code(s): E66.01 - Morbid (severe) obesity due to excess calories; Z68.41 - Body mass index [BMI] 40.0-44.9, adult Plan Since the last visit Yojana has been using Symbicort consistently and denies any respiratory symptoms at this time other than continued left sided pleuritic discomfort which has resolved previously with prednisone suggestive of underlying inflammatory process especially given h/o CTD. Advised to discuss with Vacuum Kettle Cook however all other symptoms have been stable on current regimen of CellCept and Plaquenil, reluctant to make any changes if recommended. Reviewed a course of prednisone, agreed to hold of at this time. Prior CT revealed areas of ggo in the LLL will repeat to assess stability. We had discussion regarding overall radiation exposure over the last few years however she would like to pursue repeat CT chest. We discussed smoking cessation which she is contemplating at this time. All questions were answered and patient is in agreement of plan. Will follow up in 3 months or sooner if needed. Orders: Orders CT chest wo IV con Today M32.12 - Pericarditis in systemic lupus erythematosus, M34.9 - Systemic sclerosis, unspecified, R91.8 - Other nonspecific abnormal finding of lung field Coding Level of Care Code Est Pt Level 4 (89958) Diagnoses Asthma J45.909 Pleuritic pain R07.81 Systemic lupus erythematosus (SLE) with pericarditis, unspecified SLE type M32.12 Systemic lupus erythematosus organ involvement: pericarditis Systemic lupus erythematosus type: unspecified History of pericarditis Z86.79 Scleroderma M34.9 Class 3 severe obesity due to excess calories with body mass index (BMI) of 40.0 to 44.9 in adult, unspecified whether serious comorbidity present E66.01; Z68.41 Body mass index: BMI 40.0-44.9 Obesity classification: adult class 3 (BMI >= 40) Obesity type: due to excess calories Serious obesity comorbidity presence: unspecified whether serious comorbidity present
--- OUTSIDE RECORDS SUMMARY | 2025-08-04 17:04 | XMS_ITS | Encounter Summary ---
Author Organization [facility] Address [address] [place] [address] Phone Care Team Providers Care Brand Development Manager Name Role Phone Sunni Luis MD Primary Care Provider [phone] Encounter Details Date Type Department Care Team (Late st Contact Info) Description 12/15/2022 Procedure Pass [facility] MR Imaging, [place] [address] [place] [address] Social History Tobacco Use Types Packs/Day Years Used Date Smoking Tobacco: Heavy Smoker Smokeless Tobacco: Never Comments Unknown Sex and Gender Information Value Date Recorded Sex Assigned at Not on file Legal Sex Female 8:28 AM EDT Gender Identity Not on file Sexual Orientation Not on file documented as of this encounter Plan of Treatment Upcoming Encounters Date Type Department Care Team (Late Contact Info) Description 06/21/2025 Procedure Pass [facility] Echocardiography Clinic [address] [place] [address] 11/08/2025 11:00 AM EST Appointment [facility] Echocardiography Clinic [address] [place] [address] Krysta Landeros MD [address] [place] [address] [email or web address] 11/08/2025 1:00 PM EST Office Visit [facility] Arthritis Center [address] [place] [address] [place] [address] Krysta Landeros MD [address] [place] [address] [email or web address] 12/12/2025 1:00 PM EST Office Visit [facility] Cardiovascular Medicine 32 [facility], 5th Floor, [address] [place] [address] Martin Minaya MD, [place] 55 [facility] [address] [place] [address] JOSE [email or web address] documented as of this encounter Visit Diagnoses Not on filedocumented in this encounter Care Teams Brand Development Manager Relationship Specialty Start Date End Date Sunni Luis MD PCP - General Internal Medicine 05/22/22 documented as of this encounter Additional Source Comments The information contained in this document represents components of the legal health record. It is not the complete legal health record.[facility]
--- OUTSIDE RECORDS SUMMARY | 2025-08-04 17:04 | XMS_ITS | Encounter Summary ---
Author Organization [facility] Address [address] [place] [address] [place] [address] Phone Care Team Providers Care Rehab Aide Name Role Phone Sunni Luis MD Primary Care Provider [phone] Reason for Referral * MRI/CAT Scan - Closed Specialty Diagnoses / Procedures Referred By Kassie wadsworth Referred To Contact Radiology Diagnoses Abdominal pain, epigastric Nonspecific abnormal results of liver function study Procedures MRI Cholangiopancreatography (MRCP) CHG MRI, ABDOMEN (MRI) CHG MRI, ABDOMEN W/CONTRAST CHG MRI, ABDOMEN, COMBO System, Provider Not In, [place] [address] Referral ID Status Reason Start Date Expiration Date Visits Re quested Visits Authorized [id number] Closed 11/17/2024 12/16/2024 1 1 Encounter Details Date Type Department Care Team (Latest Contact Info) Description 11/15/2024 Transcribe Orders Virtual Department [address] [place] [address] Alea Jorgensen NP 10 [place] [address] Abdominal pain, epigastric (Primary Dx); Nonspecific abnormal results of liver function study Social History Tobacco Use Types Packs/Day Years [...] Care Team (Late st Contact Info) Description 06/21/2025 Procedure Pass [facility] Echocardiography Clinic [address] [place] [address] 11/08/2025 11:00 AM EST Appointment [facility] Echocardiography Clinic [address] [place] [address] Krysta Landeros MD [address] [place] [address] [email or web address] 11/08/2025 1:00 PM EST Office Visit [facility] Arthritis Center [address] [address] Krysta Landeros MD [address] [place] [address] [email or web address] 12/12/2025 1:00 PM EST Office Visit [facility] Cardiovascular Medicine 32 [facility], 5th Floor, [address] [place] [address] Martin Minaya MD, MS [address] [place] [address] JOSE [email or web address] documented as of this encounter Results * MRI CHOLANGIOPANCREATOGRAPHY (MRCP) WITH AND WITHOUT CONTRAST (11/24/2024 3:02 PM EST) Anatomical Region Laterality Modality Pancreas, Biliary Magnetic Reson ance 11/29/2024 9:52 PM EST Impressions 11/29/2024 10:01 PM EST 1. No acute abdominal abnormality is identified. 2. Cholecystectomy surgical changes. 3. Colonic diverticulosis. No adjacent inflammation. Narrative 11/29/2024 10:01 PM EST MRI CHOLANGIOPANCREATOGRAPHY (MRCP) WITH AND WITHOUT CONTRAST Referring clinician's provided indication for this examination in [facility]: Outside Radiology Order; R10.13 // R94.5 TECHNIQUE: Multiplanar MR imaging of the abdomen was performed using T1, T2, fat saturated, and diffusion weighted techniques. 2D and 3D MRCP sequences were performed. Dynamic multiphase imaging was also performed after administration of an intravenous gadolinium contrast agent. COMPARISON: Exam ascending abdominal scintigraphy dated October 11, 2024. CT abdomen/pelvis dated August 08, 2024. CT abdomen/pelvis dated April 05, 2024. FINDINGS: DEVICES/TUBES/LINES: None. LUNG BASES: The heart size is normal without pericardial effusion. No esophageal or paraspinal abnormality. Dependent areas of atelectasis are identified within both lungs. LIVER: Normal size liver with smooth surface contour. No masses. No loss of signal is identified on opposed phase images. No intrahepatic biliary ductal dilatation. BILIARY: Surgically absent gallbladder. No extrahepatic biliary ductal dilatation. PANCREAS: No duct dilatation, mass lesions or adjacent inflammation. SPLEEN: No splenomegaly or focal splenic lesions. RENAL: No hydronephrosis, masses or perinephric collections. No renal cysts are present. No ureteral dilation or focal lesion. ADRENAL: No nodules or thickening. MESENTERY/RETROPERITONEUM: No free fluid or collection. No masses. No retroperitoneal hematoma. NODES: No adenopathy. VASCULAR: The aorta is nonaneurysmal. BOWEL: No mechanical bowel obstruction is present. No bowel wall thickening. No acute gastric or small bowel abnormality. Colonic diverticulosis. No adjacent inflammatory changes are present. The terminal ileum is normal. The appendix is nonvisualized. SOFT TISSUES: No abdominal wall hernia. No masses or collections. BONES: No acute or suspicious osseous lesions. Procedure Note Nine, Dhruv Isiah, MD - 11/29/2024 MRI CHOLANGIOPANCREATOGRAPHY (MRCP) WITH AND WITHOUT CONTRAST Referring clinician's provided indication for this examination in [facility]:Outside Radiology Order; R10.13 // R94.5 TECHNIQUE: Multiplanar MR imaging of the abdomen was performed using T1,T2, fat saturated, and diffusion weighted techniques. 2D and 3D MRCPsequences were performed. Dynamic multiphase imaging was also performedafter administration of an intravenous gadolinium contrast agent. COMPARISON: Exam ascending abdominal scintigraphy dated October 11, 2024.CT abdomen/pelvis dated August 08, 2024. CT abdomen/pelvis dated 2023. FINDINGS: DEVICES/TUBES/LINES: None. LUNG BASES: The heart size is normal without pericardial effusion. Noesophageal or paraspinal abnormality. Dependent areas of atelectasis areidentified within both lungs. LIVER: Normal size liver with smooth surface contour. No masses. No lossof signal is identified on opposed phase images. No intrahepatic biliaryductal dilatation. BILIARY: Surgically absent gallbladder. No extrahepatic biliary ductaldilatation. PANCREAS: No duct dilatation, mass lesions or adjacent inflammation. SPLEEN: No splenomegaly or focal splenic lesions. RENAL: No hydronephrosis, masses or perinephric collections. No renalcysts are present. No ureteral dilation or focal lesion. ADRENAL: No nodules or thickening. MESENTERY/RETROPERITONEUM: No free fluid or collection. No masses. Noretroperitoneal hematoma. NODES: No adenopathy. VASCULAR: The aorta is nonaneurysmal. BOWEL: No mechanical bowel obstruction is present. No bowel wallthickening. No acute gastric or small bowel abnormality. Colonicdiverticulosis. No adjacent inflammatory changes are present. Theterminal ileum is normal. The appendix is nonvisualized. SOFT TISSUES: No abdominal wall hernia. No masses or collections. BONES: No acute or suspicious osseous lesions. IMPRESSION: 1. No acute abdominal abnormality is identified. 2. Cholecystectomy surgical changes. 3. Colonic diverticulosis. No adjacent inflammation. us Provider Not In System PhD IMG MR ABDOMEN Final Result documented in this encounter Visit Diagnoses Diagnosis Abdominal pain, epigastric- Primary Nonspecific abnormal results of liver function study Abdominal pain, epigastric Nonspecific abnormal results of liver function study documented in this encounter Care Teams Rehab Aide Relationship Specialty Start Date End Date Sunni Luis MD PCP - General Internal Medicine 05/22/22 documented as of this encounter Additional Source Comments The information contained in this document represents components of the legal health record. It is not the complete legal health record.[facility]
--- OUTSIDE RECORDS SUMMARY | 2025-08-04 17:04 | XMS_ITS | Patient Health Record ---
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
--- OUTSIDE RECORDS SUMMARY | 2025-08-04 17:04 | XMS_ITS | Encounter Summary ---
Author Organization [facility] Address [address] [place] [address] [place] [address] Phone Care Team Providers Care Hardware Developer Name Role Phone Sunni Luis MD Primary Care Provider [phone] Encounter Details Date Type Department Care Team (Late st Contact Info) Description 11/15/2024 Procedure Pass [facility] [address] [place] [address] Social History Tobacco Use Types Packs/Day Years [...] on file documented as of this encounter Last Filed Vital Signs Vital Sign Reading Time Taken Comments Blood Pressure - - Pulse - - Temperature - - Respiratory Rate - - Oxygen Saturation - - Inhaled Oxygen Concentration - - Weight 124.7 kg (275 lb) 11/17/2024 6:00 PM EST Height 165.1 cm (5' 5 ) 11/17/2024 6:00 PM EST Body Mass Index 45.76 11/17/2024 6:00 PM EST documented in this encounter Plan of Treatment Upcoming Encounters Date Type Department Care Team (Late st Contact Info) Description 06/21/2025 Procedure Pass [facility] Echocardiography Clinic [facility]3 [place] [address] 11/08/2025 11:00 AM EST Appointment [facility] Echocardiography Clinic [address] [place] [address] Krysta Landeros MD [address] [place] [address] [email or web address] 11/08/2025 1:00 PM EST Office Visit [facility] Arthritis Center [facility] [address] [place] [address] Krysta Landeros MD [address] [place] [address] [email or web address] 12/12/2025 1:00 PM EST Office Visit [facility] Cardiovascular Medicine 32 [facility], 5th Floor, [address] [place] [address] Martin Minaya MD, MS [address] 605 [facility] 07 [place] [address] JOSE [email or web address] documented as of this encounter Visit Diagnoses Not on filedocumented in this encounter Care Teams Hardware Developer Relationship Specialty Start Date End Date Sunni Luis MD PCP - General Internal Medicine 05/22/22 documented as of this encounter Additional Source Comments The information contained in this document represents components of the legal health record. It is not the complete legal health record.[facility]
--- OUTSIDE RECORDS SUMMARY | 2025-08-04 17:04 | XMS_ITS | Encounter Summary ---
Author Organization [facility] Address [address] [place] [address] [address] [place] [address] Phone Care Team Providers Care Principal System Software Engineer Name Role Phone Sunni Luis MD Primary Care Provider Encounter Details Date Type Department Care Team (Late Contact Info) Description 05/25/2023 Procedure Pass [facility] Radiology [address] [place] [address] Social History Tobacco Use Types Packs/Day Years Used Date Smoking Tobacco: Heavy Smoker Smokeless Tobacco: Never Education Answer Date Recorded [...] (Late Contact Info) Description 06/21/[address] [facility] Echocardiography Clinic [address] [place] [address] 11/08/2025 11:[address] [facility] Echocardiography Clinic [address] [place] [address] Krysta Landeros MD [address] [place] [address] [email or web address] 11/08/2025 1:00 PM EST Office Visit [facility] Arthritis Center [address] [place] [address] [place] [address] Krysta Landeros MD [address] [place] [address] [email or web address] 12/12/2025 1:00 PM EST Office Visit [facility] [place] [facility] [place] Cardiovascular Medicine 32 [facility], 5th Floor, [address] [place] [address] Martin Minaya MD, MS [address] [place] [address] JOSE [email or web address] [place] [facility] [place] documented as of this encounter Visit Diagnoses Not on filedocumented in this encounter Care Teams Principal System Software Engineer Relationship Specialty Start Date End Date Sunni Luis MD PCP - General Internal Medicine 05/22/22 documented as of this encounter Additional Source Comments The information contained in this document represents components of the legal health record. It is not the complete legal health record.[facility]
--- OUTSIDE RECORDS SUMMARY | 2025-08-04 17:04 | XMS_ITS | Encounter Summary ---
Author Organization [facility] Address [address] [place] [address] [place] [address] Phone Care Team Providers Care Sheet Metal Worker Apprentice Name Role Phone Sunni Luis MD Primary Care Provider [phone] Encounter Details Date Type Department Care Team (Late Contact Info) Description 02/06/2025 Procedure Pass [facility]oscopy Admitting Dept Virtual Department [address] [place] [address] Social History Tobacco Use Types Packs/Day Years [...] (Late Contact Info) Description 06/21/2025 Procedure Pass [facility] Echocardiography Clinic [facility]3 [place] [address] 11/08/2025 11:00 AM EST Appointment [facility] Echocardiography Clinic [address] [place] [address] Krysta Landeros MD [address] [place] [address] [email or web address] 11/08/2025 1:00 PM EST Office Visit [facility] Arthritis Center [address] [place] [address] [place] [address] Krysta Landeros MD [address] [place] [address] [email or web address] 12/12/2025 1:00 PM EST Office Visit [facility] Cardiovascular Medicine 32 [facility], 5th Floor, [address] [place] [address] Martin Minaya MD, MS [address] 605 [facility] 07 [place] [address] JOSE [email or web address] documented as of this encounter Visit Diagnoses Not on filedocumented in this encounter Care Teams Sheet Metal Worker Apprentice Relationship Specialty Start Date End Date Sunni Luis MD PCP - General Internal Medicine 05/22/22 documented as of this encounter Additional Source Comments The information contained in this document represents components of the legal health record. It is not the complete legal health record.[facility]
--- OUTSIDE RECORDS SUMMARY | 2025-08-04 17:04 | XMS_ITS | Encounter Summary ---
Author Organization [facility] Address [address] [place] [address] [place] [address] Phone Care Team Providers Care Saddle Mechanic Name Role Phone Sunni Luis MD Primary Care Provider [phone] Reason for Visit * Reason Comments Med Change Request Encounter Details Date Type Department Care Team (Late st Contact Info) Description 05/02/2025 Refill [facility] Cardiovascular Clinic [address] [place] [address] Hector Montilla PA-C 75 [facility] [address] [place] [address] [email or web address] Med Change Request Social History Tobacco Use Types Packs/Day Years Used Date Smoking Tobacco: Every Day Cigarettes Smokeless Tobacco: Never Education Answer Date [...] st Contact Info) Description 06/21/2025 Procedure Pass [facility] Echocardiography Clinic [address] [place] [address] 11/08/2025 11:00 AM EST Appointment [facility] Echocardiography Clinic [address] [place] [address] Krysta Landeros MD [address] [place] [address] [email or web address] 11/08/2025 1:00 PM EST Office Visit [facility] Arthritis Center [address] [place] [address] [place] [address] Krysta Landeros MD [address] [place] [address] [email or web address] 12/12/2025 1:00 PM EST Office Visit [facility] Cardiovascular Medicine 32 [facility], 5th Floor, [address] [place] [address] Martin Minaya MD, MS [address] [address] JOSE [email or web address] documented as of this encounter Visit Diagnoses Diagnosis History of pericarditis documented in this encounter Care Teams Saddle Mechanic Relationship Specialty Start Date End Date Sunni Luis MD PCP - General Internal Medicine 05/22/22 documented as of this encounter Additional Source Comments The information contained in this document represents components of the legal health record. It is not the complete legal health record.[facility]
--- OUTSIDE RECORDS SUMMARY | 2025-08-04 17:04 | XMS_ITS | Clinical Summary ---
Author Organization [facility] [address] [facility] Address [address] [facility] [place] [address] Phone Care Team Providers Care Food Service Kitchen Supervisor Name Role Phone Sunni Earl MD Primary Care Provider [phone] Allergies Active Allergy Reactions Criticality Noted Date [...] Diagnosed Date Bipolar disorder in partial remission ([facility] V 24) 05/02/2025 Cervical lymphadenopathy 05/02/2025 Depression 05/02/2025 Hypertension 05/02/2025 Microcytic hypochromic anemia 05/02/2025 Obstructive sleep apnea 05/02/2025 Restless leg syndrome 05/02/2025 Severe obesity (CMS/HCC V24, CMS/[facility] V28) 2024 Systemic sclerosis (CMS/HCC V24, [facility] V28) Tenosynovitis, de Quervain 06/15/2022 Overview (05/02/2025): [...] then changed to colchicine and Motrin when spring coiler did not find any measure of active SLE on labs Followed by pre k special education teacher at [facility], I will try to retrieve cardiology notes for review. Iron deficiency anemia 04/22/2019 SLE (systemic lupus erythema tosus) (CMS/[facility] V24, [facility] V28) 03/02/2018 Overview (05/02/2025): 27 yo female [...] retrieve copy of most recent hospitalization from [facility] for reviewe She will see me back in 3-4 weeks to review Acanthosis nigricans 07/23/2015 Bipolar disorder ([facility] V24, [facility] V28) 06/25 Overview (05/02/2025): Follows with Dr Villafana Tobacco dependence 10/05/2013 Surgical History Surgery Date Site/Laterality Comments WISDOM [...] john thematosus SLE (systemic lupus erythema tosus) ([facility] V24, [facility] V28) 03/02/2018 DX:SLE (systemic lupus eryt hematosus) ([facility]); COMMENT: 09/2017- started HCQ with Dr. Fry, + dsDNA and MEGHAN, neg PLUM PACKER, SM, SSA/SSB, normal C3/C4 Morbid obesity with BMI of 4 5.0-49.9, adult ([facility] V24, [facility] V28) 07/11/2015 DX:Morbid obesity wit h BMI of 45.0-49.9, adult ([facility]) Fibromyalgia 06/21/2020 DX:Fibromyalgia Pneumonia 06/21/2020 DX:Pneumonia; CO MMENT: Community acquired IP admit 05/20-05/23/20 Pericardial effusion 05/15/2019 DX:Pericard ial effusion; COMMENT: IP Admit 05/20 - 05/23/20- Pericardial effusion, IV Abx, whth resolution, 04/2019 Pericardial window Bipolar disorder ([facility] V2 4, [facility] V28) 07/23/2015 DX:Bipolar disorder ([facility]); C OMMENT: Follows with Dr Villafana Tobacco [...] Industry Job Start Date Job End Date [employer] Not on file Not on file Not on file Obstetrics History Para Term AB IAB SAB Ectopic Multiple Livin g Live Births 1 Date Outcome GA Total Labor Labor/2nd/3rd Weight Sex Type Anes PTL Annalisa A1 A5 Name Clin CS-Un spec Complications:Failure to Pro christiano in First Stage,Pre-eclampsia,Lupus erythematosus,White classification A2 gestational diabetes mellitus (GDM) Delivery Location:[facility] Last Filed Vital Signs Vital Sign Reading [...] 01/29/1994, 1993, 1993 HIB Vaccines Completed 08/22/1994, 0 06/1993, 1993, Additional history exists IPV Vaccines [...] RESULTING AGENCY - 03/02/2023 6:41 AM EDT [id number] THINPREP PAP, IMAGED: NEGATIVE FOR SQUAMOUS INTRAEPITHELIAL [...] Most Recently Relevant to Health Maintenance Insurance [facility] Care Teams Food Service Kitchen Supervisor Relationship Specialty Start Date End Date Sunni Earl MD PCP - General Internal Medicine 01/30/22
--- OUTSIDE RECORDS SUMMARY | 2025-08-04 17:04 | XMS_ITS | Encounter Summary ---
Author Organization [facility] Address [address] [place] [address] [address] [place] [address] Phone Care Team Providers Care Survival Equipment Repairer Name Role Phone Sunni Luis MD Primary Care Provider + [phone] Reason for Visit * Auth/Cert (Routine) Specialty Diagnoses / Procedures Referred By Kassie t Referred To Contact Diagnoses Abdominal pain, epigastric Spasm of sphincter of Oddi Abdominal pain, epigastric [R10.13] Spasm of sphincter of Oddi [K83.4] Procedures CT ERCP W/BIOPSY SINGLE/MULTIPLE CT ERCP W/SPHINCTEROTOMY/PAPILLOTOMY CT ERCP REMOVE CALCULI/DEBRIS BILIARY/PANCREAS DUCT ENDOSCOPIC RETROGRADE CHOLANGIOPANCREATOGRAPHY Referral ID Status Reason Start Date Expiration Date Visits Re quested Visits Authorized [id number] 1 1 Encounter Details Date Type Department Care Team (Late st Contact Info) Description 02/06/2025 Hospital Encounter [facility] Admitting Dept Virtual Department 30 [place] [address] Adam Shrestha MD [address] [place] [address] Social History Tobacco Use Types Packs/Day Years [...] st Contact Info) Description 06/21/2025 Procedure Pass [facility] Echocardiography Clinic [facility]3 [place] [address] 11/08/2025 11:00 AM EST Appointment [facility] Echocardiography Clinic [address] [place] [address] Krysta Landeros MD [address] [place] [address] [email or web address] 11/08/2025 1:00 PM EST Office Visit [facility] Arthritis Center Main [place] [address] [place] [address] Krysta Landeros MD [address] [place] [address] [email or web address] 12/12/2025 1:00 PM EST Office [place] [facility] 32 [facility], 5th Floor, [address] [place] [address] Martin Minaya MD, [place] [address] [place] [address] JOSE [email or web address] documented as of this encounter Visit Diagnoses Not on filedocumented in this encounter Care Teams Survival Equipment Repairer Relationship Specialty Start Date End Date Sunni Luis MD PCP - General Internal Medicine 6/30/22 documented as of this encounter Additional Source Comments The information contained in this document represents components of the legal health record. It is not the complete legal health record.[facility]
--- OUTSIDE RECORDS SUMMARY | 2025-08-04 17:04 | XMS_ITS | Encounter Summary ---
Author Organization [facility] Address [address] [place] [address] [place] [address] Phone Care Team Providers Care Public Address System Mechanic Name Role Phone Sunni Luis MD Primary Care Provider [phone] Encounter Details Date Type Department Care Team (Late st Contact Info) Description [address] [facility] Echocardiography 70 [place] [address] Social History Tobacco Use Types Packs/Day Years Used Date Smoking Tobacco: Heavy Smoker Smokeless Tobacco: Never Education Answer Date Recorded Are you interested in more education? Not on jose carlos e 2023 Are you concerned about learning? Not on file 2023 No 2023 No 2023 Comments Unknown Sex and Gender Information Value Date Recorded Sex Assigned at Not on file Legal Sex Female 8:28 AM EDT Gender Identity Not on file Sexual Orientation Not on file documented as of this encounter Plan of Treatment Upcoming Encounters Date Type Department Care Team (Late Contact Info) Description 06/21/2025 Procedure Pass [facility] Echocardiography Clinic [address] [place] [address] 11/08/2025 11:00 AM EST Appointment [facility] Echocardiography Clinic [address] [place] [address] Krysta Landeros MD [address] [place] [address] [email or web address] 11/08/2025 1:00 PM EST Office Visit [facility] Arthritis Center Main [place] [address] [place] [address] Krysta Landeros MD [address] [place] [address] [email or web address] 12/12/2025 1:00 PM EST Office Visit [facility] [place] [place] 32 [facility], 5th Floor, [address] [place] [address] Martin Minaya MD, MS [address] 605 [facility] [address] [place] [address] JOSE [email or web address] documented as of this encounter Visit Diagnoses Not on filedocumented in this encounter Care Teams Public Address System Mechanic Relationship Specialty Start Date End Date Sunni Luis MD PCP - General Internal Medicine 05/22/22 documented as of this encounter Additional Source Comments The information contained in this document represents components of the legal health record. It is not the complete legal health record.[facility]
--- OUTSIDE RECORDS SUMMARY | 2025-08-04 17:04 | XMS_ITS | Encounter Summary ---
Author Organization [facility] Address [address] [place] [address] [place] [address] Phone Care Team Providers Care Jde Developer Name Role Phone Sunni Luis MD Primary Care Provider Encounter Details Date Type Department Care Team (Late Contact Info) Description 03/25/2024 Procedure Pass [facility] Echocardiography 70 [place] [address] Social History Tobacco Use Types Packs/Day Years [...] (Late Contact Info) Description 06/21/2025 Procedure Pass [facility] Echocardiography Clinic [address] [place] [address] 11/08/2025 11:00 AM EST Appointment [facility] Echocardiography Clinic [address] [place] [address] Krysta Landeros MD [address] [place] [address] [email or web address] 11/08/2025 1:00 PM EST Office Visit [facility] Arthritis Center Main [place] [address] [place] [address] Krysta Landeros MD 75 [place] [address] [email or web address] 12/12/2025 1:00 PM EST Office [place] [facility] [place] 32 [facility], 5th Floor, [address] [place] [address] Martin Minaya MD, MS [address] [place] [address] JOSE [email or web address] documented as of this encounter Visit Diagnoses Not on filedocumented in this encounter Care Teams Jde Developer Relationship Specialty Start Date End Date Sunni Luis MD PCP - General Internal Medicine 05/22/22 documented as of this encounter Additional Source Comments The information contained in this document represents components of the legal health record. It is not the complete legal health record.[facility]
--- OUTSIDE RECORDS SUMMARY | 2025-08-04 17:04 | XMS_ITS | Encounter Summary ---
Author Organization [facility] Address [address] [place] [address] [place] [address] Phone Care Team Providers Care Milling Machine Set Up Operator Name Role Phone Sunni Luis MD Primary Care Provider Encounter Details Date Type Department Care Team (Late Contact Info) Description 10/18/2023 Procedure Pass [facility] EKG 70 [place] [address] Social History Tobacco Use Types Packs/Day Years [...] (Late Contact Info) Description 06/21/2025 Procedure Pass [facility] Echocardiography Clinic [address] [place] [address] 11/08/2025 11:00 AM EST Appointment [facility] Echocardiography Clinic [address] [place] [address] Krysta Landeros MD 75 [place] [address] [email or web address] 11/08/2025 1:00 PM EST Office Visit [facility] Arthritis Center Main [place] [address] [place] [address] Krysta Landeros MD 75 [place] [address] [email or web address] 12/12/2025 1:00 PM EST Office Visit [facility] Cardiovascular Medicine [address] [place] [address], 5th Floor, [address] [place] [address] Martin Minaya MD, MS [address] [place] [address] JOSE [email or web address] documented as of this encounter Visit Diagnoses Not on filedocumented in this encounter Care Teams Milling Machine Set Up Operator Relationship Specialty Start Date End Date Sunni Luis MD PCP - General Internal Medicine 05/22/22 documented as of this encounter Additional Source Comments The information contained in this document represents components of the legal health record. It is not the complete legal health record.[facility]
--- OUTSIDE RECORDS SUMMARY | 2025-08-04 17:04 | XMS_ITS | Encounter Summary ---
Author Organization [facility] Address [address] [place] [address] [place] [address] Phone Care Team Providers Care Wire Sawyer Name Role Phone Sunni Luis MD Primary Care Provider [phone] Reason for Referral * - Closed Specialty Diagnoses / Procedures Referred By Kassie wadsworth Referred To Contact Diagnoses Palpitations Procedures Patch Monitor up to 7 Days Patch Monitor up to 15 days Jo Yousif MD, PhD Phone: tel: fax: mailto:[email or web address] Referral ID Status Reason Start Date Expiration Date Visits Re quested Visits Authorized [id number] Closed 10/18/2023 10/17/2024 1 1 Encounter Details Date Type Department Care Team (Late st Contact Info) Description 11/20/2023 Ancillary Orders [facility] Cardiovascular Clinic 70 [place] [address] Jo Yousif MD, PhD [address] [place] [address] [place] [address] [email or web address] Palpitations Social History Tobacco Use Types Packs/Day Years [...] st Contact Info) Description 06/21/2025 Procedure Pass [facility] Echocardiography Clinic [address] [place] [address] 11/08/2025 11:00 AM EST Appointment [facility] Echocardiography Clinic [address] [place] [address] Krysta Landeros MD 75 [place] [address] [email or web address] 11/08/2025 1:00 PM EST Office Visit [facility] Arthritis Center [facility] 60 [place] [address] Krysta Landeros MD [address] [place] [address] [email or web address] 12/12/2025 1:00 PM EST Office Visit [facility] Cardiovascular Medicine 32 [facility], 5th Floor, [address] [place] [address] Martin Minaya MD, MS [address] [address] JOSE [email or web address] documented as of this encounter Results * Patch Monitor up to 7 Days (11/20/2023 11:01 AM EST) Anatomical Region Laterality Modality Heart Other Jo Yousif MD, PhD CV CARDIAC SERVICES ORD ERABLES Final Result documented in this encounter Visit Diagnoses Diagnosis Palpitations documented in this encounter Care Teams Wire Sawyer Relationship Specialty Start Date End Date Sunni Luis MD PCP - General Internal Medicine 05/22/22 documented as of this encounter Additional Source Comments The information contained in this document represents components of the legal health record. It is not the complete legal health record.[facility]
--- OUTSIDE RECORDS SUMMARY | 2025-08-04 17:04 | XMS_ITS | Encounter Summary ---
Author Organization [facility] Address [address] [place] [address] [place] [address] Phone Care Team Providers Care Metrology Specialist Name Role Phone Sunni Luis MD Primary Care Provider [phone] Encounter Details Date Type Department Care Team (Late Contact Info) Description 03/30/2025 Procedure Pass [facility] EKG 70 [place] [address] Social History Tobacco Use Types Packs/Day Years [...] (Late Contact Info) Description 06/21/2025 Procedure Pass [facility] Echocardiography Clinic [address] [place] [address] 11/08/2025 11:00 AM EST Appointment [facility] Echocardiography Clinic [address] [place] [address] Krysta Landeros MD 75 [place] [address] [email or web address] 11/08/2025 1:00 PM EST Office Visit [facility] Arthritis Center Main [place] [address] [place] [address] Krysta Landeros MD 75 [place] [address] [email or web address] 12/12/2025 1:00 PM EST Office [place] [facility] [place] [address] [place] [address], 5th Floor, [address] [place] [address] Martin Minaya MD, MS [address] [place] [address] JOSE [email or web address] documented as of this encounter Visit Diagnoses Not on filedocumented in this encounter Care Teams Metrology Specialist Relationship Specialty Start Date End Date Sunni Luis MD PCP - General Internal Medicine 05/22/22 documented as of this encounter Additional Source Comments The information contained in this document represents components of the legal health record. It is not the complete legal health record.[facility]
--- OUTSIDE RECORDS SUMMARY | 2025-08-04 17:04 | XMS_ITS | Clinical Summary ---
Author Organization [facility] Address [address] [place] [address] Care Team Providers Care Service Station Attendant Name Role Phone Sunni Earl MD Primary Care Provider [phone] Allergies No known active allergies Medications Medication [...] Additional history exists COVID-19 Vaccine ( season) 2025 08/08/2021, 07/18/2021 Influenza Vaccine (#1) 2025 2, 10/25/2021, 09/16/2018 Hepatitis B Vaccines Completed 01/29/1994, 1993, 1993 Pneumococcal Vaccine Aged Out 05/22/2020 No long er eligible based on patient's age to complete this topic RSV Ped < 20 months Aged Out No longe r eligible based on patient's age to complete this topic Care Teams Service Station Attendant Relationship Specialty Start Date End Date Sunni Earl MD PCP - General Internal Medicine 01/30/22
--- OUTSIDE RECORDS SUMMARY | 2025-08-04 17:04 | XMS_ITS | Encounter Summary ---
Author Organization [facility] Address [address] [place] [address] [place] [address] Phone Care Team Providers Care Configuration Management Administrator Name Role Phone Sunni Luis MD Primary Care Provider + [phone] Reason for Referral * - New Request Specialty Diagnoses / Procedures Referred By Kassie wadsworth Referred To Contact Diagnoses Palpitations Procedures Event Monitor Looping up to 30 Days MCT (Mobile Cardiac Telemetry) Hector Montilla PA-C [address] [place] [address] Phone: tel: fax: mailto:[email or web address] Referral ID Status Reason Start Date Expiration Date V isits Requested Visits Authorized [id number] New Request 03/30/2025 1 1 Encounter Details Date Type Department Care Team (Latest Contact Info) Description 04/06/[address] [facility] Cardiovascular Clinic 70 [place] [address] Hector Montilla PA-C [address] [place] [phone] [email or web address] History of pericarditis (Primary Dx); Palpitations; Chest pain, unspecified type Social History Tobacco Use Types Packs/Day Years [...] st Contact Info) Description 06/21/2025 Procedure Pass [facility] Echocardiography Clinic [address] [place] [address] 11/08/2025 11:00 AM EST Appointment [facility] Echocardiography Clinic [address] [place] [address] Krysta Landeros MD [address] [place] [address] [email or web address] 11/08/2025 1:00 PM EST Office Visit [facility] Arthritis Center Main [address] [address] Krysta Landeros MD [address] [place] [address] [email or web address] 12/12/2025 1:00 PM EST Office [place] [facility] [place] 32 [facility], 5th Floor, [address] [place] [address] Martin Minaya MD, MS [address] [place] [address] JOSE [email or web address] documented as of this encounter Results * Event Monitor Looping up to 30 Days (04/13/2025 1:25 PM EDT) Anatomical Region Laterality Modality Heart Other 04/12/2025 11:5 9 PM EDT Narrative 04/15/2025 9:06 AM EDT I have read the extracorporeal technician summary and agree with the reported heart rate range and automated ectopy burden. Atrial arrhythmias: Rare PACs (<1% burden). There is no evidence of atrial fibrillation or atrial flutter during the monitoring period. Ventricular arrhythmias: Rare PVCs (<1% burden). There is no evidence of ventricular tachycardia during the monitoring period. Pauses/bradyarrhythmia: None. Patient triggered events corresponded to sinus rhythm and sinus rhythm with atrial ectopy. Procedure Note Guzman Can MD - 04/15/2025 I have read the extracorporeal technician summary and agree with the reported heart raterange and automated ectopy burden. Atrial arrhythmias: Rare PACs (<1%burden). There is no evidence of atrial fibrillation or atrial flutterduring the monitoring period. Ventricular arrhythmias: Rare PVCs (<1% burden). There is no evidence ofventricular tachycardia during the monitoring period.Pauses/bradyarrhythmia: None. Patient triggered events corresponded tosinus rhythm and sinus rhythm with atrial ectopy. Jo Yousif MD, PhD CV CARDIAC SERVICES ORD ERABLES Final Result documented in this encounter Visit Diagnoses Diagnosis Palpitations History of pericarditis- Primary Palpitations Chest pain, unspecified type documented in this encounter Care Teams Configuration Management Administrator Relationship Specialty Start Date End Date Sunni Luis MD PCP - General Internal Medicine 05/22/22 documented as of this encounter Additional Source Comments The information contained in this document represents components of the legal health record. It is not the complete legal health record.[facility]
--- OUTSIDE RECORDS SUMMARY | 2025-08-04 17:04 | XMS_ITS | Encounter Summary ---
Author Organization [facility] Address [address] [place] [address] [place] [address] Phone Care Team Providers Care Train Gateman Name Role Phone Sunni Luis MD Primary Care Provider Encounter Details Date Type Department Care Team (Late st Contact Info) Description 09/26/2024 Procedure Pass [facility] Echo Lab [address] [place] [address] Social History Tobacco Use Types Packs/Day Years [...] Pass [facility] Echocardiography Clinic [address] [place] [address] 11/08/2025 11:00 AM EST Appointment [facility] Echocardiography Clinic [address] [place] [address] Krysta Landeros MD 75 [place] [address] [email or web address] 11/08/2025 1:00 PM EST Office Visit [facility] Arthritis Center Main [place] [address] [place] [address] Krysta Landeros MD 75 [place] [address] [email or web address] 12/12/2025 1:00 PM EST Office Visit [facility] [place] [address] [place] [address], 5th Floor, [address] [place] [address] Martin Minaya MD, MS [address] [place] [address] JOSE G@[email or web address] documented as of this encounter Visit Diagnoses Not on filedocumented in this encounter Care Teams Train Gateman Relationship Specialty Start Date End Date Sunni Luis MD PCP - General Internal Medicine 05/22/22 documented as of this encounter Additional Source Comments The information contained in this document represents components of the legal health record. It is not the complete legal health record.[facility]
--- OUTSIDE RECORDS SUMMARY | 2025-08-04 17:04 | XMS_ITS | Encounter Summary ---
Author Organization [facility] Address [address] [place] [address] [place] [address] Phone Care Team Providers Care Web Applications Developer Name Role Phone Sunni Luis MD Primary Care Provider Encounter Details Date Type Department Care Team (Late Contact Info) Description 04/04/2025 Procedure Pass [facility] Echo Lab 30 [place] [address] Social History Tobacco Use Types Packs/Day Years [...] (Late Contact Info) Description 06/21/2025 Procedure Pass [facility] Echocardiography Clinic [facility]3 [place] [address] 11/08/2025 11:00 AM EST Appointment [facility] Echocardiography Clinic [address] [place] [address] Krysta Landeros MD 75 [place] [address] [email or web address] 11/08/2025 1:00 PM EST Office Visit [facility] Arthritis Center Main [place] [address] [place] [address] Krysta Landeros MD [address] [place] [address] [email or web address] 12/12/2025 1:00 PM EST Office [place] [facility] [place] 32 [facility], 5th Floor, [address] [place] [address] Martin Minaya MD, MS [address] [place] [address] JOSE [email or web address] documented as of this encounter Visit Diagnoses Not on filedocumented in this encounter Care Teams Web Applications Developer Relationship Specialty Start Date End Date Sunni Luis MD PCP - General Internal Medicine 05/22/22 documented as of this encounter Additional Source Comments The information contained in this document represents components of the legal health record. It is not the complete legal health record.[facility]
--- OUTSIDE RECORDS SUMMARY | 2025-08-04 17:05 | XMS_ITS | Clinical Summary ---
Author Organization [facility] Address [facility] [address] [place] [phone] Phone Care Team Providers Care Telecommunications Support Name Role Phone Sunni Luis MD Primary Care Provider Allergies Active Allergy Reactions Criticality Noted Date Comments Morphine GI Upset,Nausea and/or Vomiting 04/2022 Medications LORazepam (ATIVAN) 0.5 MG tablet Take 0.5 mg by mouth as needed. 2 Active lamoTRIgine (LAMICTAL) 100 MG IMMEDIATE release tablet Take 100 mg by mouth daily. 2 Active ibuprofen (ADVIL,MOTRIN) 600 MG tablet Take 600 mg by mouth 4 (four) times a day as needed. Active propranoloL (INDERAL) 20 MG immediate release tablet 3 Active budesonide-formo terol 80-4.5 mcg/actuation inhaler Inhale 2 puffs into the lungs 2 (two) times a day. Active mycophenolate mofetil (CELLCEPT) 500 mg tabletIndication s:SLE (systemic lupus erythematosus) Take three in the AM and two in the PM 450 tablet 1 5 Active omeprazole (PRILOSEC) 10 MG capsuleIndicatio ns:History of pericarditis Take 1 capsule (10 mg total) by mouth daily. 30 capsule 5 Active Additional Information Patient taking differently:10 mg OralAs needed, Reported on 06/21/2025 cyclobenzaprine (FLEXERIL) 5 MG tablet TAKE ONE TABLET BY MOUTH DAILY AT BEDTIME. MAY INCREASE TO 2 TABLETS IF NO RELIEF FROM JUST ONE 180 tablet 1 5 Active hydroxychloroqui ne (PLAQUENIL) 200 mg tablet TAKE ONE TABLET BY MOUTH TWICE A DAY 180 tablet 3 5 Active colchicine (COLCRYS) 0.6 mg tablet TAKE 1 TABLET BY MOUTH 2 TIMES A DAY. 180 tablet 1 5 Active Additional Information Patient taking differently:0.6 mg OralDaily, Reported on 06/21/2025 meclizine (ANTIVERT) 25 mg tablet Take 25 mg by mouth as needed. Active amLODIPine (NORVASC) 5 MG tablet Take 0.5-1 tablets (2.5-5 mg total) by mouth daily. 90 tablet 1 5 Active Active Problems Problem Noted Date Diagnosed Date Vitamin D deficiency 06/15/2022 Overview (06/15/2022): Mild Vit D deficiency (22) currently being supplemented with 50,000 IU weekly X 12 weeks Pt will continue Vit D3 OTC 2000 IU once she completes supplementation Will plan to repeat Vit D next f/u Assessment & Plan (06/15/2022 1:43 PM EDT): Mild Vit D deficiency (22) currently being supplemented with 50,000 IU weekly X 12 weeks Pt will continue Vit D3 OTC 2000 IU once she completes supplementation Will plan to repeat Vit D next f/u Tenosynovitis, de Quervain 06/15/2022 Overview (06/15/2022): Exam consistent with Dequervain's Injection today Right [...] neoprene OTC [facility] splint to use prn Assessment & Plan (06/15/2022 1:50 PM EDT): Exam consistent with Dequervain's Injection today Right [...] swelling, warmth, or redness in the area. SLE (systemic lupus erythematosus) 05/26/2022 Overview (05/26/2022): 27 yo female with hx of pos [...] retrieve copy of most recent hospitalization from [facility] for reviewe She will see me back in 3-4 weeks to review Assessment & Plan (06/15/2022 1:41 PM EDT): 27 yo female with hx of SLE with pos MEGHAN, DsDNA , oral ulcers, Raynaud's, photosensitivity, and hx of pericardial effusion Recent labs Low Positive MEGHAN, low positive DsDNA, No cytopenias, normal compliments, low positive Antiphospholpid Ab(18.3) and Elevation of ESR (28) and CRP (40.4) She has been treated with Plaquenil since 09/2019. Currently, her SLE does not appear active. Her widespread arthralgias, and myalgias recently were less likely due to active SLE and more likely due to FM since she has had good response to increasing dose of Cymbalta. Low Positive Antiphospholipid Ab, neg lupus Anti-coag. No hx of blood clots , no miscarriages, Will plan to repeat Antiphosholipid Ab at next f/u in 3 mo She is feeling well with normal exam and no synovitis. Continue Plaquenil Eye exam is pending for Plaquenil Right thumb pain is consistent with DeQuervain's Tenosynovitis -s/p injection today Eye exam is pending for Plaquenil F/u in 3 months Assessment & Plan (05/26/2022 10:48 AM EDT): 27 yo female with hx of pos [...] retrieve copy of most recent hospitalization from [facility] for reviewe She will see me back in 3-4 weeks to review Raynaud's disease without gangrene 05/26/2022 Overview (05/26/2022): Hx of Raynauds currently with mild symptoms In past Nifedipine was not tolerated. Currently on Amlodipine which will be continued Assessment & Plan (06/15/2022 1:44 PM EDT): Hx of Raynauds currently with mild symptoms In past Nifedipine was not tolerated. Currently on Amlodipine which will be continued Assessment & Plan (05/26/2022 10:50 AM EDT): Hx of Raynauds currently with mild symptoms In past Nifedipine was not tolerated. Currently on Amlodipine which will be continued Arthralgia 05/26/2022 Overview (05/26/2022): Widespread arthralgias increased past 8 months. No synovitis. Newly pos Anti- centromere, but no sclerodacltly on exam. Unclear if symptoms are due to SLE or FM Normal X Rays of hands in 2020 Check labs today. Assessment & Plan (05/26/2022 11:04 AM EDT): Widespread arthralgias increased past 8 months. No synovitis. Newly pos Anti- centromere, but no sclerodacltly on exam. Unclear if symptoms are due to SLE or FM but suspect more likely non inflammatory joint pain as she reports no response to recent treatment with Medrol Normal X Rays of hands in 2020 Check labs today. Fibromyalgia 05/26/2022 Overview (05/26/2022): Carries diagnosis of FM which appears accurate with hx of widespread pain and mood disorder and presence of FM tender points and allodynia on exam Currently on gabapentin and Cymbalta, Lamictal and Motrin I will continue Gabapentin for now She reports recent increase in LFTs, would recommend holding Motrin until I can review hospital notes and check UTD LFTs Assessment & Plan (06/15/2022 1:46 PM EDT): FM with hx of widespread pain mood disorder, poor sleep and presence of FM tender points and allodynia on exam Currently on Cymbalta, Lamictal and Motrin Pt to maintain close f/u with psych Encouraged daily exercise Assessment & Plan (05/26/2022 11:36 AM EDT): Carries diagnosis of FM which appears accurate with hx of widespread pain mood disorder, poor sleep and presence of FM tender points and allodynia on exam Currently on Cymbalta, Lamictal and Motrin Pt to maintain close f/u with psych She reports recent increase in LFTs, would recommend holding Motrin until I can review hospital notes and check UTD LFTs Pericardial effusion 05/26/2022 Overview (05/26/2022): History of pericardial effusion with tamponade in 05/15/2019 unclear etiology Treated initially treated with high dose prednisone as thought to be due to SLE but then changed to colchicine and Motrin when fish technologist did not find any measure of active SLE on labs Followed by 3d artist at [facility], I will try to retrieve cardiology notes for review. Assessment & Plan (05/26/2022 11:12 AM EDT): History of pericardial effusion with tamponade in 05/15/2019 unclear etiology. Treated initially treated with high dose prednisone as thought to be due to SLE but then changed to colchicine and Motrin when fish technologist did not find any measure of active SLE on labs Followed by 3d artist at [facility], I will try to retrieve cardiology notes for review. Encounters Date Type Department Care Team Description 06/21/2025 12:02 PM EDT - 06/21/2025 11:59 PM EDT Hospital Encounter [facility] Phlebotomy, [facility] [address] [place] [address] Krysta Landeros MD Discharge Disposition: Home or Self Care 06/21/2025 11:00 AM EDT Office Visit [facility] Arthritis [facility] [address] [place] [address] Krysta Landeros MD Other systemic lupus erythematosus with other organ involvement (Primary Dx); Atypical chest pain; Encounter for long-term (current) use of high-risk medication; Pericardial effusion (noninflammatory) 06/21/2025 Refill [facility] Arthritis [facility] [address] [place] [address] Krysta Landeros MD Med Change Request 06/14/2025 Refill [facility] Arthritis [facility] [address] [place] [address] Krysta Landeros MD Medication Refill 06/12/2025 Telephone [facility] [address], [address], [address] [place] [address] Martin Minaya MD, MS 06/10/2025 Refill [facility] [address] [place] [address] Krysta Landeros MD Medication Refill 05/30/2025 Telephone [facility] [address] [place] [address] Martin Minaya MD, MS Minaya/Returning call 05/16/2025 Refill [facility] Arthritis [facility] [address] [place] [address] Krysta Landeros MD Medication Refill 05/04/2025 11:03 AM EDT - 05/04/2025 11:59 PM EDT Hospital Encounter [facility] [address] [place] [address] Krysta Landeros MD Discharge Disposition: Home or Self Care 05/04/2025 10:14 AM EDT - 05/04/2025 11:02 AM EDT Hospital Encounter [facility] [address] [place] [address] Jo Yousif MD, PhD Discharge Disposition: Home or Self Care 04/04/2025 Procedure Pass [facility] [address] [place] [address] from Last 3 Months Family History Medical History Relation Comments Hypertension Father Lung cancer Maternal Grandfather Breast cancer Maternal Grandmother Hypertension Mother Breast cancer Paternal Grandmother Depression Sister Lupus Neg Hx Psoriasis Neg Hx Rheumatoid arthritis Neg Hx Relation Status Comments Father Maternal Grandfather Maternal Grandmother Mother Paternal Grandmother Sister Social History Tobacco Use Types Packs/Day Years Used Date Smoking Tobacco: Every Day Cigarettes Smokeless Tobacco: Never Tobacco Cessation:Ready to Q uit: Not Asked; Counseling Given: Not Answered Education Answer Date Recorded Are you interested [...] Sign Reading Time Taken Comments Blood Pressure 141/67 06/21/2025 11:15 AM EDT Pulse 99 06/21/2025 11:15 AM EDT Temperature 37.2 C (99 F) 06/21/2025 11:15 AM EDT Respiratory Rate 16 06/12/2022 8:47 AM EDT Oxygen Saturation 98% 06/21/2025 11: 15 AM EDT Inhaled Oxygen Concentration - - Weight 130.1 kg (286 lb 12.8 oz) 2024 11:10 AM EDT Height 165.1 cm (5' 5 ) 01/06/2025 12:3 0 PM EST Body Mass Index 47.73 01/06/2025 12:30 PM EST Plan of Treatment Upcoming Encounters Date Type Department Care Team (Late st Contact Info) Description 06/21/2025 Procedure Pass [facility] Echocardiography Clinic [address] [place] [phone] 11/08/2025 11:00 AM EST Appointment [facility] Echocardiography Clinic [address] [place] [address] Krytsa Landeros MD [address] [place] [phone] [email or web address] 11/08/2025 1:00 PM EST Office Visit [facility] Ar[facility] [address] [place] [address] Krysta Landeros MD [address] [place] [phone] [email or web address] 12/12/2025 1:00 PM EST Office Visit [facility] [address], 5th [address], [address] [place] [address] Martin Minaya MD, MS [address] [place] [address] [email or web address] Health Maintenance Due Date Last Done Comments DEPRESSION SCREENING 2005 SMOKING Hx and SMOKELESS TOBACCO SCREENING 2006 HIV ONE-TIME SCREENING (18-6 5 YEARS) 2011 PNEUMOCOCCAL VACCINES (0-49 years) (2 of 2 - PCV) 05/22/2021 05/22/2020 COVID-19 VACCINE (3 - Pfizer risk series) 09/05/2021 08/08/2021, 07/18/2021 INFLUENZA VACCINE (#1) 2025 2, 10/25/2021, 09/16/2018 PAP SMEAR 02/18/2026 02/18/2023 Adult Td,Tdap Booster 08/19/2028 08/19/2018 , 09/10/2010 HEPATITIS C SCREENING Completed 12/29/2022 HEPATITIS A VACCINES Aged Out No long er eligible based on patient's age to complete this topic HIB VACCINES Aged Out No longer eligi ble based on patient's age to complete this topic MENINGOCOCCAL VACCINES (ACWY) Aged Out No longer eligible based on patient's age to complete this topic MENINGOCOCCAL VACCINES (B) Aged Out N o longer eligible based on patient's age to complete this topic Medical Devices Not on file Procedures Procedure Name Priority Date/Time Associated Diagnosis Comments C-REACTIVE PROTEIN, HIGH SENSITIVITY Routine 06/21/2025 12:12 PM EDT Other systemic lupus erythematosus with other organ involvement SEDIMENTATION RATE (ESR) Routine 06/21/2025 12:12 PM EDT Other systemic lupus erythematosus with other organ involvement CBC AND DIFFERENTIAL Routine 06/21/2025 12:12 PM EDT Other systemic lupus erythematosus with other organ involvement Encounter for long-term (current) use of high-risk medication COMPREHENSIVE METABOLIC PANEL Routine 06/21/2025 12:12 PM EDT Other systemic lupus erythematosus with other organ involvement Encounter for long-term (current) use of high-risk medication COMPLEMENT C4 Routine 06/21/2025 12:12 PM EDT Other systemic lupus erythematosus with other organ involvement COMPLEMENT C3 Routine 06/21/2025 12:12 PM EDT Other systemic lupus erythematosus with other organ involvement DOUBLE STRANDED DNA ANTIBODIES Routine 06/21/2025 12:12 PM EDT Other systemic lupus erythematosus with other organ involvement TOTAL COMPLEMENT Routine 06/21/2025 12:1 2 PM EDT Other systemic lupus erythematosus with other organ involvement TOTAL PROTEIN, RANDOM URINE Routine 05/04/2025 11:24 AM EDT Other systemic lupus erythematosus with other organ involvement MICROALBUMIN/CREATINI NE RATIO, RANDOM URINE Routine 05/04/2025 11:24 AM EDT Other systemic lupus erythematosus with other organ involvement URINALYSIS Routine 05/04/2025 11:24 AM EDT Other systemic lupus erythematosus with other organ involvement TTE COMPREHENSIVE Routine 05/04/2025 11: 00 AM EDT Chest pain, unspecified type HEPATITIS C ANTIBODY, QUALITATIVE Routine 12/29/2022 7:08 AM EST Need for hepatitis C screening test from Last 3 Months or Most Recently Relevant to Health Maintenance Results * (ABNORMAL) C-reactive protein, high sensitivity (06/21/2025 12:12 PM EDT) CRP, HIGH SENSITIVITY 14.4(H) 0.0 - 3.0 mg/L [facility] Comment: For cardiac risk assessment, reference range is <3.0mg/L. For inflammation assessment, reference range is <10.0mg/L. Blood 06/21/2025 12:1 2 PM EDT 06/21/2025 12:30 PM EDT us Krysta Landeros MD LAB BLOOD ORDERABLES Final Result Performing Organization Address City/State/[facility] Co de Phone Number [facility] [address] [place] [phone] * Comprehensive metabolic panel (06/21/2025 12:12 PM EDT) SODIUM 138 136 - 145 mmol/L [facility] POTASSIUM 4.2 3.4 - 5.1 mmol/L [facility] CHLORIDE 102 98 - 107 mmol/L [facility] CO2 26 22 - 31 mmol/L [facility] BUN 10 6 - 23 mg/dL [facility] CREATININE 0.67 0.50 - 1.20 mg/dL [facility] GLUCOSE 92 70 - 100 mg/dL [facility] ALBUMIN 4.1 3.5 - 5.2 g/dL [facility] TOTAL PROTEIN 7.0 6.4 - 8.3 g/dL [facility] CALCIUM 9.2 8.8 - 10.7 mg/dL [facility] ALKALINE PHOSPHATASE 68 35 - 130 U/L [facility] TOTAL BILIRUBIN <0.2 0.0 - 1.0 mg/dL [facility] AST 18 10 - 50 U/L [facility] ALT 18 10 - 50 U/L [facility] GLOBULIN 2.9 2.2 - 4.2 g/dL [facility] EGFR 119 >59 mL/min/1.7 3m2 [facility] Comment:Estimated glomerular filtration rate calculated using the CKD-EPI refit equation. ANION GAP 10 7 - 17 mmol/L [facility] Blood 06/21/2025 12:1 2 PM EDT 06/21/2025 12:30 PM EDT Krysta Landeros MD LAB BLOOD ORDERABLES Final Result Performing Organization Address City/State/[facility] Co de Phone Number [facility] [address] [place] [phone] * Double stranded DNA antibodies (06/21/2025 12:12 PM EDT) ANTI DSDNA 26 0 - 30 IU/mL [facility] Comment:SEMIQUANTITATIVE MET HOD PERFORMED Blood 06/21/2025 12:1 2 PM EDT 06/21/2025 12:30 PM EDT Krysta Landeros MD LAB BLOOD ORDERABLES Final Result Performing Organization Address City/[facility]/ZIP Co de Phone Number [facility] [address] [place] [address] * (ABNORMAL) Sedimentation rate (ESR) (06/21/2025 12:12 PM EDT) ESR 22(H) 0 - 20 mm/h [facility] Comment:Erythrocyte Sediment ation Rate (ESR) reference range change effective 10/03/2019. Blood 06/21/2025 12:1 2 PM EDT 06/21/2025 12:30 PM EDT us Krysta Landeros MD LAB BLOOD ORDERABLES Final Result Performing Organization Address [facility] Co de Phone Number [facility] [address] [place] [phone] * (ABNORMAL) CBC and differential (06/21/2025 12:12 PM EDT) WBC 8.69 4.00 - 11.00 K/uL [facility] RBC 5.34(H) 4.00 - 5.20 M/uL [facility] HGB 13.4 12.0 - 16.0 g/dL [facility] HCT 42.3 36.0 - 46.0 % [facility] PLT 261 150 - 450 K/uL [facility] MCV 79.2(L) 80.0 - 100.0 fL [facility] MCH 25.1(L) 27.0 - 31.0 pg [facility] MCHC 31.7(L) 32.0 - 36.0 g/dL [facility] RDW 14.9(H) 11.5 - 14.5 % [facility] MPV 10.4 8.4 - 12.0 fL [facility] NRBC 0.00 0.00 /100 WBCs [facility] ABSOLUTE NRBC 0.00 0.00 K/uL [facility] DIFF METHOD Auto [facility] NEUTS 61.8 48.0 - 76.0 % [facility] LYMPHS 29.2 18.0 - 41.0 % [facility] MONOS 7.0 4.0 - 11.0 % [facility] EOS 1.3 0.0 - 5.0 % [facility] BASOS 0.2 0.0 - 1.5 % [facility] % IMMATURE GRANS 0.5 0.0 - 0.9 % [facility] ABSOLUTE NEUTS 5.37 1.92 - 7.60 K/uL [facility] Comment:1.21-5.39 cells/KL i s the reference range for individuals with the Rivera null phenotype ABSOLUTE LYMPHS 2.54 0.72 - 4.10 K/uL [facility] ABSOLUTE MONOS 0.61 0.16 - 1.10 K/uL [facility] ABSOLUTE EOS 0.11 0.00 - 0.50 K/uL [facility] ABSOLUTE BASOS 0.02 0.00 - 0.15 K/uL [facility] ABS IMMATURE GRANS 0.04 0.00 - 0.09 K/uL [facility] ABSOLUTE NEUTROPHIL COUNT 5.37 1.92 - 7.60 K/uL [facility] Comment: Automated cell count. Manual ANC may differ if performed. 1.21-5.39 cells/KL is the reference range for individuals with the Rivera null phenotype Blood 06/21/2025 12:1 2 PM EDT 06/21/2025 12:30 PM EDT Krysta Landeros MD LAB BLOOD ORDERABLES Final Result [facility] [address] [place] [phone] * (ABNORMAL) Total Complement (06/21/2025 12:12 PM EDT) TOTAL HEMALYTIC COMPLEMENT >95(H) 42 - 95 U/mL [facility] Blood 06/21/2025 12:1 2 PM EDT 06/21/2025 12:30 PM EDT Krysta Landeros MD LAB BLOOD ORDERABLES Final Result [facility] [address] [place] [address] * Complement C3 (06/21/2025 12:12 PM EDT) C3 130 90 - 180 mg/dl [facility] Comment: Blood 06/21/2025 12:1 2 PM EDT 06/21/2025 12:30 PM EDT us Krysta Lnaderos MD LAB BLOOD ORDERABLES Final Result Performing Organization Address [facility] Co de Phone Number [facility] [address] [place] [phone] * Complement C4 (06/21/2025 12:12 PM EDT) C4 14 10 - 40 mg/dL [facility] Comment: Blood 06/21/2025 12:1 2 PM EDT 06/21/2025 12:30 PM EDT us Krysta Landeros MD LAB BLOOD ORDERABLES Final Result Performing Organization Address [facility] de Phone Number [facility] [address] [place] [phone] * Microalbumin/creatinine ratio, random urine (05/04/2025 11:24 AM EDT) URINE MICROALBUMIN <1.2 0 - 2.3 mg/dL [facility] URINE CREATININE 45 mg/dL [facility] MICROALB/CRE RATIO NOT CALCULATED 0 - 20 mg/g Cre [facility] Comment:due to Microalbumin <1.2 Urine (Urine) 05/04/2025 11: 24 AM EDT 05/04/2025 11:46 AM EDT us Krysta Landeros MD URINE ORDERABLES Final Res ult Performing Organization Address [facility] Co de Phone Number [address] [phone] * Total protein, random urine (05/04/2025 11:24 AM EDT) URINE TOTAL PROTEIN <4.0 mg/dL [facility] Urine (Urine) 05/04/2025 11: 24 AM EDT 05/04/2025 11:46 AM EDT Krysta Landeros MD URINE ORDERABLES Final Res ult Performing Organization Address [facility] Co de Phone Number [address] [phone] * Urinalysis (05/04/2025 11:24 AM EDT) COLOR Yellow Yellow [facility] CLARITY Clear [facility] GLUCOSE Negative Negative [facility] BILI Negative Negative [facility] KETONES Negative Negative [facility] SPECIFIC GRAVITY 1.020 1.005 - 1.030 [facility] BLOOD Negative Negative [facility] PH 6.0 5.0 - 8.0 [facility] Protein-UA Negative Negative [facility] NITRITE Negative Negative [facility] Leukocyte esterase, ur Negative Negative [facility] Urine (Urine) 05/04/2025 11: 24 AM EDT 05/04/2025 11:47 AM EDT Krysta Landeros MD URINE ORDERABLES Final Res ult Performing Organization Address [facility] Co de Phone Number [address] [phone] * TTE COMPREHENSIVE (05/04/2025 11:00 AM EDT) Body Surface Area 2.31 m2 Height 165 cm Weight 130 kg Systolic BP 138 mmHg Diastolic BP 80 mmHg Interventricular Septum Thickness 8 6 - 11 mm Left Ventricle Internal Diameter End Diastole 51 37 - 52 mm Left Ventricle Internal Diameter End Systole 30 <35 mm Left Ventricular Outflow Tract Diameter 22.0 mm LVOT VTI REST 183.0 mm Left Ventricular Outflow Tract Velocity 1.1 m/s Left Ventricular Outflow Tract Gradient at Rest 4 mmHg Left Ventricular Posterior Wall Thickness 9 6 - 11 mm Left Ventricle Ea Lateral Wave Speed 10.8 cm/s Left Ventricle Ea Septal Wave Speed 9.9 cm/s Ejection Fraction 55 50 - 75 Percent Aortic Valve Mean Gradient 6 mmHg Aortic Valve Time Velocity Integral 266.0 mm Aortic Valve Peak Velocity 1.6 m/s Aortic Valve Peak Gradient 10 mmHg Aortic Sinus Diameter 30 <40 mm Inferior Vena Cava Diameter 20 <21 mm Left Ventricle A Wave Speed 119.0 cm/s Left Ventricle E Wave Speed 82.5 cm/s Mitral Valve Mean Gradient 2 mmHg Mitral Valve Peak Gradient 5 mmHg Mitral Valve Area Continuity Equation 4.10 cm2 Pulmonary Valve Peak Velocity 1.2 m/s Pulmonary Valve Peak Gradient 6 mmHg Right Ventricle Basal Diameter 35 25 - 41 mm Tricuspid Valve Peak Velocity 2.3 m/s Raw LV EF% 65 % MV E/E' Tissue Velocity Lateral 7.64 Relative Wall Thickness 0.35 0.22 - 0.42 Left Ventricle indexed to BSA 65.7 g/m2 MV E/A ratio 0.7 MV E/e' septal 8.33 Left Ventricle E/e' Average 8.0 Aortic Valve Prosthetic Peak Gradient 10 mmHg Aortic Valve Prosthetic Mean Gradient 6 mmHg Aortic Valve Sinus Index by BSA 13 mm/m2 Aorta Sinus Index by Height 1.82 cm/m Aorta Sinus CSA index by Height 4.28 cm2/m Mitral Valve Prosthetic Peak Gradient 5 mmHg Mitral Valve Prosthetic Mean Gradient 2 mmHg Right Ventricle to Right Atrium Pressure Gradient 21 mmHg Right Ventricle Peak Systolic Pressure (Assuming RAP 10) 31 mmHg MGB CV ECHO TV RVSP (ASSUMING RAP OF 5) 26 mmHg RVSP (Exclusive of RAP) 21 mmHg Pulmonic Valve Prosthetic Peak Gradient 6 mmHg MGB CV AV DIMENSIONLESS INDEX (PEAK) - STRESS ECHO DOBUT - REST 0.69 Aortic Sinus Index 13 mm Aortic Valve Sinus Index 1 13 19 - 27 mm Echo E/Ea 8.33 Left Atrial Volume Index 24 16 - 34 mL/m2 GLS 16.7 % Right Ventricle TAPSE 18 >=17 mm Right Ventricle Pulse Doppler S Wave 10.0 >=9.5 cm/s Left Atrial Volume 55 mL Left Atrial Volume Index by Height 33 mL/m Ascending Aorta Diameter 27 <36 mm Right Ventricle Peak Systolic Pressure 24 mmHg Ascending Aorta Index 12 mm/m2 Asc Aorta CSA Index by Height 3.47 cm2/m Right Atrium Pressure Estimated 3 mmHg Ascending Aorta Index 12 mm Ascending Aorta Diameter 12 mm AO ASC DIAM BSA INDEX 11.69 Anatomical Region Laterality Modality Heart Ultrasound Narrative 05/04/2025 12:03 PM EDT Images from the original result were not included. Normal LV size and function EF 55 to 60%. Trace mitral regurgitation. Normal diastolic function. Normal RV size and function. Normal PA pressure estimation. Compared to prior study from September 2024, no change. Left Ventricle The left ventricle is normal in size. There is normal wall thickness. There is normal left ventricular systolic function. The LV ejection fraction is 55% (calculated via biplane measurement). Average global longitudinal strain (GLS) is -16.7%, as measured on Norma software platform. LV diastolic function appears within normal limits for age. The E/A ratio is 0.7. The e' septal wave velocity is 9.9 cm/s. The e' lateral wave velocity is 10.8 cm/s. The average E/e' ratio is 8.0. Right Ventricle The right ventricle is normal in size. There is normal right ventricular systolic function. TAPSE is 18 mm. RV S' wave is 10.0 cm/s. Left Atrium The left atrium is normal in size. The left atrial volume is 55 mL. The left atrial volume index by BSA is 24 mL/m2. Right Atrium The right atrium is normal in size. The IVC is normal in size with normal inspiratory collapse. Mitral Valve There is mild mitral valve thickening. There is no mitral stenosis. There is trace to mild mitral regurgitation. Tricuspid Valve The tricuspid valve appears normal. There is no tricuspid stenosis. There is trace to mild tricuspid regurgitation. The RV systolic pressure was calculated at 24 mmHg (using TR peak velocity of 2.3 m/s and assuming an RA pressure of 3 mmHg). Aortic Valve The aortic valve is tricuspid. There is no aortic stenosis. There is no aortic regurgitation. The visualized portions of the thoracic aorta appear normal in size. Pulmonic Valve The pulmonic valve appears normal. There is no pulmonic stenosis. Pericardium There is no pericardial effusion. General Findings The image quality was fair (3). Technique(s) used in the evaluation: Color flow Doppler and Spectral Doppler. Consent was obtained from: patient The predominant rhythm during the study was sinus. Patient tolerated the procedure well. No complications observed during the procedure. Comparison Findings Compared to prior TTE on 10/14/2024, IAS/IVS The interatrial septum appears normal. us oJ Yousif MD, PhD CV ECHO ORDERABLES Jenae l Result * Hepatitis C antibody, qualitative (12/29/2022 7:08 AM EST) HCV NON-REACTIV E NON-REACTI VE [facility] Blood 12/29/2022 7:08 AM EST 12/29/2022 7:11 AM EST us Krysta Landeros MD LAB BLOOD ORDERABLES Final Result Performing Organization Address City/State/[facility] Co de Phone Number [facility] [address] [place] [address] from Last 3 Months or Most Recently Relevant to Health Maintenance Insurance [employer] [place] OUT OF STATE PPO [facility] [place] [address] [employer] OUT OF STATE [place] [facility] [address] [place] OUT [place] [address] [place] [address] Care Teams Telecommunications Support Relationship Specialty Start Date End Date Sunni Luis MD PCP - General Internal Medicine 05/22/22 Additional Source Comments The information contained in this document represents components of the legal health record. It is not the complete legal health record.[facility]
== END 2025-08-04 15:18 | disposition home or self-care (01) ==
PROVIDERS: PCP Internal Medicine; Visit Provider Nurse Practitioner Family
DX: J45.909 Unspecified asthma, uncomplicated (principal); R07.81 Pleurodynia; M32.12 Pericarditis in systemic lupus erythematosus; Z86.79 Personal history of other diseases of the circulatory system; M34.9 Systemic sclerosis, unspecified; E66.01 Morbid (severe) obesity due to excess calories; Z68.41 Body mass index [BMI] 40.0-44.9, adult
CPT/HCPCS: 99214

== ENCOUNTER 2025-09-23 08:05 | Outpatient (REF) | payer BC, SELFPAY ==
--- NOTE | ~2025-09-23 | CT_ITS ---
CLINICAL HISTORY: R91.8 - Other nonspecific abnormal finding of lung field CT chest with contrast Comparison: 12/08/2024 Findings: Subsegmental atelectasis superior segment right lower lobe. No other significant parenchymal abnormality. Stable lingular scarring noted. No significant mediastinal adenopathy. No significant free pleural fluid. No significant focal bony abnormalities. Impression: Subsegmental atelectasis superior segment right lower lobe This document has been electronically signed by: Rojelio Marcial MD on 09/26/2025 21:33:01
--- OUTSIDE RECORDS SUMMARY | 2025-09-23 08:07 | XMS_ITS | Encounter Summary ---
Author Organization [facility] Address [address] [place] [address] [place] [address] Phone Care Team Providers Care Sanitary Plumber Name Role Phone Sunni Luis MD Primary Care Provider Encounter Details Date Type Department Care Team (Late st Contact Info) Description 09/26/2024 Procedure Pass [facility] Echo Lab [address] [place] [address] Social History Tobacco Use Types Packs/Day Years [...] (Late Contact Info) Description 06/21/2025 Procedure Pass [facility] Echocardiography Clinic [address] [place] [address] 11/08/2025 11:00 AM EST Appointment [facility] Echocardiography Clinic [address] [place] [address] Krysta Landeros MD [address] [place] [address] [email or web address] 11/08/2025 1:00 PM EST Office Visit [facility] Arthritis Center Main [place] [address] [place] [address] Krysta Landeros MD [address] [place] [address] [email or web address] 12/12/2025 1:00 PM EST Office Visit [facility] Cardiovascular Medicine [address] [place] [address], 5th Floor, [address] [place] [address] Martin Minaya MD, MS [address] [place] [address] [email or web address] documented as of this encounter Visit Diagnoses Not on filedocumented in this encounter Care Teams Sanitary Plumber Relationship Specialty Start Date End Date Sunni Luis MD PCP - General Internal Medicine 05/22/22 documented as of this encounter Additional Source Comments The information contained in this document represents components of the legal health record. It is not the complete legal health record.[facility]
--- OUTSIDE RECORDS SUMMARY | 2025-09-23 08:08 | XMS_ITS | Encounter Summary ---
Author Organization [facility] Address [address] [place] [address] [place] [address] Phone Care Team Providers Care Sign Erector Name Role Phone Sunni Luis MD Primary Care Provider [phone] Encounter Details Date Type Department Care Team (Late Contact Info) Description 03/30/2025 Procedure Pass [facility] EKG [address] [place] [address] Social History Tobacco Use Types Packs/Day Years [...] (Late Contact Info) Description 06/21/2025 Procedure Pass [facility] Echocardiography Clinic [address] [place] [address] 11/08/2025 11:00 AM EST Appointment [facility] Echocardiography Clinic [address] [place] [address] Krysta Landeros MD [address] [place] [address] [email or web address] 11/08/2025 1:00 PM EST Office Visit [facility] Arthritis Center Main [place] [address] [place] [address] Krysta Landeros MD [address] [place] [address] [email or web address] 12/12/2025 1:00 PM EST Office Visit [facility] Cardiovascular Medicine [address] [place] [address], 5th Floor, [address] [place] [address] Martin Minaya MD, MS [address] [place] [address] JOSE [email or web address] documented as of this encounter Visit Diagnoses Not on filedocumented in this encounter Care Teams Sign Erector Relationship Specialty Start Date End Date Sunni Luis MD PCP - General Internal Medicine 05/22/22 documented as of this encounter Additional Source Comments The information contained in this document represents components of the legal health record. It is not the complete legal health record.[facility]
--- OUTSIDE RECORDS SUMMARY | 2025-09-23 08:08 | XMS_ITS | Clinical Summary ---
Author Organization [facility] [address] [facility] Address [address] [facility] [place] [address] Phone Care Team Providers Care Nurse Wound Care Name Role Phone Sunni Earl MD Primary Care Provider [phone] Allergies Active Allergy Reactions Criticality Noted Date [...] Diagnosed Date Bipolar disorder in partial remission ([facility] V 24) 05/02/2025 Cervical lymphadenopathy 05/02/2025 Depression 05/02/2025 Hypertension 05/02/2025 Microcytic hypochromic anemia 05/02/2025 Obstructive sleep apnea 05/02/2025 Restless leg syndrome 05/02/2025 Severe obesity (CMS/HCC V24, CMS/[facility] V28) 2024 Systemic sclerosis (CMS/HCC V24, CMS/[facility] V28) Tenosynovitis, de Quervain 06/15/2022 [...] then changed to colchicine and Motrin when exercise equipment specialist did not find any measure of active SLE on labs Followed by hide mill man at [facility], I will try to retrieve cardiology notes for review. Iron deficiency anemia 04/22/2019 SLE (systemic lupus erythema tosus) (CMS/[facility] V24, CMS/[facility] V28) 03/02/2018 Overview (05/02/2025): 27 [...] retrieve copy of most recent hospitalization from [facility] for reviewe She will see me back in 3-4 weeks to review Acanthosis nigricans 07/23/2015 Bipolar disorder ([facility] V24, [facility] V28) 06/25 Overview (05/02/2025): Follows with Dr [...] john thematosus SLE (systemic lupus erythema tosus) ([facility] V24, [facility] V28) 03/02/2018 DX:SLE (systemic lupus eryt hematosus) ([facility]); COMMENT: 09/2017- started HCQ with Dr. Fry, + dsDNA and MEGHAN, neg TELEPHONE LINEWORKER, SM, SSA/SSB, normal C3/C4 Morbid obesity with BMI of 4 5.0-49.9, adult ([facility] V24, [facility] V28) 07/11/2015 DX:Morbid obesity wit h BMI of 45.0-49.9, adult ([facility]) Fibromyalgia 06/21/2020 DX:Fibromyalgia Pneumonia 06/21/2020 DX:Pneumonia; CO MMENT: Community acquired IP admit 05/20-05/23/20 Pericardial effusion 05/15/2019 DX:Pericard ial effusion; COMMENT: IP Admit 05/20 - 05/23/20- Pericardial effusion, IV Abx, whth resolution, 04/2019 Pericardial window Bipolar disorder ([facility] V2 4, CMS/[facility] V28) 07/23/2015 DX:Bipolar disorder ([facility]); C OMMENT: Follows with Dr [...] Industry Job Start Date Job End Date [employer] Not on file Not on file Not on file Obstetrics History Para Term AB IAB SAB Ectopic Multiple Livin g Live Births 1 Date Outcome GA Total Labor Labor/2nd/3rd Weight Sex Type Anes PTL Annalisa A1 A5 Name Clin CS-Un spec Complications:Failure to Pro christiano in First Stage,Pre-eclampsia,Lupus erythematosus,White classification A2 gestational diabetes mellitus (GDM) Delivery Location:[facility] Last Filed Vital Signs Vital Sign Reading [...] 08/19/2028 08/19/2018, 09/10/2010, 06/07/2003, Additional history exists RSV Immunization Adult Patients (1 - 1-dose 75+ series) 2068 Hepatitis B Vaccines Completed 01/29/1994, 1993, 1993 HIB Vaccines Completed 08/22/1994, 11/0 06/1993, 1993, Additional history exists IPV Vaccines [...] RESULTING AGENCY - 03/02/2023 6:41 AM EDT [id number] THINPREP PAP, IMAGED: NEGATIVE FOR SQUAMOUS INTRAEPITHELIAL [...] Most Recently Relevant to Health Maintenance Insurance [facility] ([facility]) Care Teams Nurse Wound Care Relationship Specialty Start Date End Date Sunni Earl MD PCP - General Internal Medicine 01/30/22
--- OUTSIDE RECORDS SUMMARY | 2025-09-23 08:08 | XMS_ITS | Encounter Summary ---
Author Organization [facility] Address [address] [place] [address] [place] [address] Phone Care Team Providers Care Speech And Language Tutor Name Role Phone Sunni Luis MD Primary Care Provider [phone] Encounter Details Date Type Department Care Team (Late st Contact Info) Description 2023 Procedure Pass [facility] Echocardiography [address] [place] [address] Social History Tobacco Use Types Packs/Day Years [...] (Late Contact Info) Description 06/21/2025 Procedure Pass [facility] Echocardiography Clinic [address] [place] [address] 11/08/2025 11:00 AM EST Appointment [facility] Echocardiography Clinic [address] [place] [address] Krysta Landeros MD [address] [place] [address] [email or web address] 11/08/2025 1:00 PM EST Office Visit [facility] Arthritis Center Main [place] [address] [place] [address] Krysta Landeros MD [address] [place] [address] [email or web address] 12/12/2025 1:00 PM EST Office Visit [facility] [address] [facility], 5th Floor, [address] [place] [address] Martin Minaya MD, MS [address] [facility] [address] [place] [address] [email or web address] documented as of this encounter Visit Diagnoses Not on filedocumented in this encounter Care Teams Speech And Language Tutor Relationship Specialty Start Date End Date Sunni Luis MD PCP - General Internal Medicine 05/22/22 documented as of this encounter Additional Source Comments The information contained in this document represents components of the legal health record. It is not the complete legal health record.[facility]
--- OUTSIDE RECORDS SUMMARY | 2025-09-23 08:08 | XMS_ITS | Data Portability ---
Author Organization [place] [facility] Address [address] [place] [phone] Care Team Providers Care Tube Room Supervisor Name Role Phone LYRIC CENTENO Primary [...] after care of this patient according to [facility]'s infection prevention protocols. Time On Scene with Patient: 00:27:47 [email or web address] Not available 10/18/2020 16:09:22 Plan of Treatment Reminders Order Date Submit Date Provider Last Modified By Organization Details Last Modified Time Details Appointments None recorded. Lab SARS CoV 2 RNA (COVID-19), QL, mobile heavy equipment mechanic-PCR, respiratory specimen 2019 020 GARY [facility] (Centralized Electronic Ordering - All Locations), Patient Can Go To The Location Of Their Choice, [id number] 23:03:06 rapid flu (A+B) 2019 020 [email or web address] [facility], [address] [place] [address], [phone], 0 15:51:36 Referral None recorded. Procedures None recorded. Surgeries None recorded. Imaging None recorded. Medication Orders None recorded. Patient TargetsNo targets recorded. Patient Instructions Encounter Date Encounter Id Patient Instructions Last Modified By Organization Details Last Modified Time 10/18/2020 [id number] DRINK PLENTY OF FLUIDS YOUR FLU TEST [...] CARE Thank you for your visit with [facility] today. We cannot always find the [...] in your condition between 8am-10pm, [facility] at [phone] to help navigate your care. Not available 10/18/2020 15:51:14 Reason for Referral None Reported. Results Created Date Observation Date Name Description Value Unit Range Abnormal Flag Note LastModifiedBy Organization Detail LastModifiedTime 10/18/20 20 10/21/2020 SARS CoV 2 RNA (COVI D-19) , QL, mobile heavy equipment mechanic-P CR, respi rator y speci men covid-19, VIOLETA Not Detec romina Refer ence range : Not Detec romina (NOTE ) This nucle ic acid ampli ficat ion test was devel oped and its perfo rmanc e alyssia cteri stics deter mined by [facility] atori es. Nucle ic acid [...] Go To The Location Of Their Choice, [id number] 10/21/2020 23:03:06 10/18/20 20 10/18/2020 rapid flu (A+B) Flu A negati ve Not Available [facility] [address] [place] [address] Elena, [place], [address], 10/18/2020 15:49:08 10/18/20 20 10/18/2020 rapid flu (A+B) Flu B negati ve Not Available [facility] [address] [place], [address], 10/18/2020 15:49:08 10/18/20 20 10/18/2020 rapid flu (A+B) Control Visual ized / Valid Not Available [facility] - [address] [place], [address], 10/18/2020 15:49:08 Result Notes None recorded. Procedures Surgical History Date Name Laterality Status Provider Name and Address Organization Details Recorded Time pericardiostomy completed DOMITILA LEWIS [address] [place], [address], [place] [facility] 10/18/2020 15:36:46 Cholecystectomy completed DOMITILA LEWIS [address] [place], [address], [place] [facility] 10/18/2020 15:36:55 section completed DOMITILA LEWIS [address] [place], [address], [place] [facility] 10/18/2020 15:37:04 Imaging Results [...] Every Day Smoker DOMITILA LEWIS [address] [place], [address], [place] [facility] 10/18/2020 15:35:24 Do You Have An Advance Directive? No [email or web address] Information not available 10/18/2020 What Is Your Code Status? Full Code Information not available 10/18/2020 Within The Past 12 Months, Has It Happened That The Food You Bought Just Didn't Last And You Didn't Have Money To Get More. No [email or web address] Information not available 10/18/2020 Within The Past 12 Months, Have You Worried That Your Food Would Run Out Before You Got Money To Buy More. No [email or web address] Information not available 10/18/2020 Fall Risk: Do You Feel Unsteady When Standing Or Walking? No [email or web address] Information not available 10/18/2020 We Know That How And When People Interact With Friends And Family Can Be Very Different From Person To Person. How Often Do You Have The Opportunity To See Or Talk To People That You Care About And Feel Close To? (Ex: Talking To Friends On The Phone Or Visiting Friends Or Family Or Going To [employer] Or Club Meetings) 5 Or More Times Per Week [email or web address] Information not available 10/18/2020 We Know From Many Of Our Patients That Covering All Of Their Costs Can Be Difficult At Times. This Can Cause Stress And Impact Health. In The Past Year, Have You Been Unable To Get Any Of The Following When It Was Really Needed? No [email or web address] Information not available 10/18/2020 What Is Your Housing Situation Today? I Have Housing [email or web address] Information not available 10/18/2020 Would You Like Help Connecting To Resources? None [email or web address] Information not available 10/18/2020 How Much Tobacco Do You Smoke? 0.5 PPD [email or web address] Information not available 10/18/2020 How Many Years Have You Smoked Tobacco? 8 [email or web address] Information not available 10/18/2020 Sex: Unknown Functional Status None recorded. Mental Status None recorded. Family History Relationship Description Onset Age of this Age Resolved Age Notes LastModified by Organization Details LastModified Time Father No current problems or disability Not available 10/18 15:35:18 Mother No current problems or disability [email or web address] Not available 10/18 15:35:18 Medical History Condition Response Diabetes N Coronary Artery Disease N Cancer N Stroke N Depression Y COPD N Asthma Y High Cholesterol N Pulmonary Embolism N Hypertension N Kidney Disease N Gynecological HistoryNo gynecological history recorded. Obstetrics History GPAL:G 0 P 0 0 0 0 Past Encounters Encounter ID Performer Location Encounter Start Date Encounter Closed Date Diagnosis/Indication Diagnosis SNOMED-CT Code Diagnosis ICD10 Code Diagnosis IMO Codes Diagnosis Note [id number] DOMITILA LEWIS [facility] [address] [place] [address] 10/18/2020 15:15:29 10/22/2020 15:00:37 Diarrhea 79546908 R19.7 Pain in throat 272454082 R07.0 Nasal congestion 0009625 0 R09.81 Exposure t o communicable disease 235304943 Z20.828 Health Concerns Section Related Observation LastModified by Organization Detai ls LastModified Time None Recorded Concern Status LastModified by Organization Details LastModified Time None Recorded Advance Directives Directive N: Payers Insurance Date Sequence Insurance Name Policy Number Policy Guillaume Covered Member ID Guillaume Member ID Guarantor Name 06/05/[address] [place] [id number] [facility] 10/18/2020 1 *SELF PAY* [facility] [id number] [facility] 06/05/2021 [id number] [facility] [id number] [address] [facility] 06/05/2021 [id number] [facility] [id number] Notes Date Note Type [...] sick contact. DOMITILA LEWIS [address], [place], [address], [place] [facility] 10/18/2020 16:11:09 OBGyn Episode No OBEpisode recorded.
--- OUTSIDE RECORDS SUMMARY | 2025-09-23 08:08 | XMS_ITS | Encounter Summary ---
Author Organization [facility] Address [address] [place] [address] [place] [address] Phone Care Team Providers Care Hair And Makeup Designer Name Role Phone Sunni Luis MD Primary Care Provider + [phone] Reason for Referral * MRI/CAT Scan - Closed Specialty Diagnoses / Procedures Referred By Kassie wadsworth Referred To Contact Radiology Diagnoses Abdominal pain, epigastric Nonspecific abnormal results of liver function study Procedures MRI Cholangiopancreatography (MRCP) CHG MRI, ABDOMEN (MRI) CHG MRI, ABDOMEN W/CONTRAST CHG MRI, ABDOMEN, COMBO System, Provider [place] In, [place] [address] Referral ID Status Reason Start Date Expiration Date Visits Re quested Visits Authorized [id number] Closed 11/17/2024 12/16/2024 1 1 Encounter Details Date Type Department Care Team (Latest Contact Info) Description 11/15/2024 Transcribe Orders Virtual Department 30 [place] [address] Alea Jorgensen NP 10 [place] [address] Abdominal pain, epigastric (Primary Dx); Nonspecific abnormal [...] st Contact Info) Description 06/21/2025 Procedure Pass [facility] Echocardiography Clinic [address] [place] [address] 11/08/2025 11:00 AM EST Appointment [facility] Echocardiography Clinic [address] [place] [address] Krysta Landeros MD [address] [place] [address] [email or web address] 11/08/2025 1:00 PM EST Office Visit [facility] Arthritis Center [address] [address] Krysta Landeros MD [address] [place] [address] [email or web address] 12/12/2025 1:00 PM EST Office [place] [facility] 32 [facility], 5th Floor, [address] [place] [address] Martin Minaya MD, [place] [address] [place] [address] JOSE G@[email or web address] documented as of this encounter Results [...] clinician's provided indication for this examination in [facility]: Outside Radiology Order; R10.13 // R94.5 [...] acute or suspicious osseous lesions. Procedure Note NineDhruv MD - 11/29/2024 MRI CHOLANGIOPANCREATOGRAPHY (MRCP) WITH AND WITHOUT CONTRAST Referring clinician's provided indication for this examination in [facility]:Outside Radiology Order; R10.13 // R94.5 TECHNIQUE: [...] study documented in this encounter Care Teams Hair And Makeup Designer Relationship Specialty Start Date End Date Sunni Luis MD PCP - General Internal Medicine 05/22/22 documented as of this encounter Additional Source Comments The information contained in this document represents components of the legal health record. It is not the complete legal health record.[facility]
--- OUTSIDE RECORDS SUMMARY | 2025-09-23 08:08 | XMS_ITS | Encounter Summary ---
Author Organization [facility] Address [address] [place] [address] [place] [address] Phone Care Team Providers Care Reception Interviewer Name Role Phone Sunni Luis MD Primary Care Provider Encounter Details Date Type Department Care Team (Late Contact Info) Description 03/25/2024 Procedure Pass [facility] Echocardiography [address] [place] [address] Social History Tobacco Use Types Packs/Day Years [...] (Late Contact Info) Description 06/21/2025 Procedure Pass [facility] Echocardiography Clinic [address] [place] [address] 11/08/2025 11:00 AM EST Appointment [facility] Echocardiography Clinic [address] [place] [address] Krysta Landeros MD 75 [place] [address] [email or web address] 11/08/2025 1:00 PM EST Office Visit [facility] Arthritis Center Main [place] [address] [place] [address] Krysta Landeros MD 75 [place] [address] [email or web address] 12/12/2025 1:00 PM EST Office Visit [facility] Cardiovascular Medicine 32 [facility], 5th Floor, [address] [place] [address] Martin Minaya MD, MS [address] [place] [address] JOSE G@[email or web address] documented as of this encounter Visit Diagnoses Not on filedocumented in this encounter Care Teams Reception Interviewer Relationship Specialty Start Date End Date Sunni Luis MD PCP - General Internal Medicine 05/22/22 documented as of this encounter Additional Source Comments The information contained in this document represents components of the legal health record. It is not the complete legal health record.[facility]
--- OUTSIDE RECORDS SUMMARY | 2025-09-23 08:08 | XMS_ITS | Clinical Summary ---
Author Organization [facility] Address [address] [place] [address] Care Team Providers Care Mentally Impaired Teacher Name Role Phone Sunni Earl MD Primary Care Provider [phone] Allergies No known active allergies Medications Medication [...] age to complete this topic Care Teams Mentally Impaired Teacher Relationship Specialty Start Date End Date Sunni Earl MD PCP - General Internal Medicine 01/30/22
--- OUTSIDE RECORDS SUMMARY | 2025-09-23 08:08 | XMS_ITS | Encounter Summary ---
Author Organization [facility] Address [address] [place] [address] [place] [address] Phone Care Team Providers Care Research Test Engine Operator Name Role Phone Sunni Luis MD Primary Care Provider Encounter Details Date Type Department Care Team (Late Contact Info) Description 04/04/2025 Procedure Pass [facility] Echo Lab 30 [place] [address] Social History Tobacco Use Types Packs/Day Years [...] (Late Contact Info) Description 06/21/2025 Procedure Pass [facility] Echocardiography Clinic [facility]3 [place] [address] 11/08/2025 11:00 AM EST Appointment [facility] Echocardiography Clinic [address] [place] [address] Krysta Landeros MD 75 [place] [address] [email or web address] 11/08/2025 1:00 PM EST Office Visit [facility] Arthritis Center Main [place] [address] [place] [address] Krysta Landeros MD 75 [place] [address] [email or web address] 12/12/2025 1:00 PM EST Office [place] [facility] 32 [facility], 5th Floor, [address] [place] [address] Martin Minaya MD, MS [address] 07 [place] [address] JOSE [email or web address] documented as of this encounter Visit Diagnoses Not on filedocumented in this encounter Care Teams Research Test Engine Operator Relationship Specialty Start Date End Date Sunni Luis MD PCP - General Internal Medicine 05/22/22 documented as of this encounter Additional Source Comments The information contained in this document represents components of the legal health record. It is not the complete legal health record.[facility]
--- OUTSIDE RECORDS SUMMARY | 2025-09-23 08:08 | XMS_ITS | Patient Health Record ---
Author Organization [facility] Address [address] [place] [address] Care Team Providers Care Hardboard Grinder Name Role Phone Bernie Mercedes Primary Care Provider Artur Velarde Unavailable [phone] Reason For Referral No Information Problems Problem Type SNOMED Code ICD Code Onset Dates Problem Status W/U Status Risk Notes Problem Verruca plantaris (71568703) Verruca Plantaris (078.19) Active confirmed Problem Congenital pes planus (99105751) Flat Foot, Congenital (754.61) Active confirmed Plan Of Treatment Pending Test Test Name Order Date -10/05/2012 Insurance Providers Payer Name Payer Address Payer Phone Subscriber Number Group Number Insured Name Patient Relationship to Insured Coverage Start Date Coverage End Date [facility] [address] [place] [address] [id number] Yojana Cantor Self - patient is the insured Medical (General) History Medical History History ICD Code high blood pressure Surgical History Surgery Date(Month/Year) wisdom teeth extraction 07/02
--- OUTSIDE RECORDS SUMMARY | 2025-09-23 08:08 | XMS_ITS | Encounter Summary ---
Author Organization [facility] Address [address] [place] [address] Phone Care Team Providers Care Watch Repair Person Name Role Phone Sunni Luis MD Primary Care Provider [phone] Encounter Details Date Type Department Care Team (Late st Contact Info) Description 12/15/2022 Procedure Pass [facility] MR Imaging, [place] 60 [place] [address] Social History Tobacco Use Types Packs/Day Years [...] (Late Contact Info) Description 06/21/2025 Procedure Pass [facility] Echocardiography Clinic [address] [place] [address] 11/08/2025 11:00 AM EST Appointment [facility] Echocardiography Clinic [address] [place] [address] Krysta Landeros MD [address] [place] [address] [email or web address] 11/08/2025 1:00 PM EST Office Visit [facility] Arthritis Center Main [place] 60 [place] [address] Krysta Landeros MD 75 [place] [address] [email or web address] 12/12/2025 1:00 PM EST Office Visit [facility] Cardiovascular Medicine 32 [facility], 5th Floor, [address] [place] [address] Martin Minaya MD, MS 55 [facility] [address] [address] 07 [place] [address] JOSE G@[email or web address] documented as of this encounter Visit Diagnoses Not on filedocumented in this encounter Care Teams Watch Repair Person Relationship Specialty Start Date End Date Sunni Luis MD PCP - General Internal Medicine 05/22/22 documented as of this encounter Additional Source Comments The information contained in this document represents components of the legal health record. It is not the complete legal health record.[facility]
--- OUTSIDE RECORDS SUMMARY | 2025-09-23 08:08 | XMS_ITS | Encounter Summary ---
Author Organization [facility] Address [address] [place] [address] [address] [place] [address] Phone Care Team Providers Care Dance Teacher Name Role Phone Sunni Luis MD Primary Care Provider Encounter Details Date Type Department Care Team (Late Contact Info) Description 05/25/2023 Procedure Pass [facility] Women's Radiology 70 [place] [address] Social History Tobacco Use Types Packs/Day Years [...] (Late Contact Info) Description 06/21/2025 Procedure Pass [facility] Echocardiography Clinic [address] [place] [address] 11/08/2025 11:00 AM EST Appointment [facility] Echocardiography Clinic [address] [place] [address] Krysta Landeros MD 75 [place] [address] [email or web address] 11/08/2025 1:00 PM EST Office Visit [facility] Arthritis Center Main [place] [address] [place] [address] Krysta Landeros MD 75 [place] [address] [email or web address] 12/12/2025 1:00 PM EST Office [place] [facility] [place] 32 [facility], 5th Floor, [address] [place] [address] Martin Minaya MD, MS [address] 07 [place] [address] JOSE G@[email or web address] documented as of this encounter Visit Diagnoses Not on filedocumented in this encounter Care Teams Dance Teacher Relationship Specialty Start Date End Date Sunni Luis MD PCP - General Internal Medicine 05/22/22 documented as of this encounter Additional Source Comments The information contained in this document represents components of the legal health record. It is not the complete legal health record.[facility]
--- OUTSIDE RECORDS SUMMARY | 2025-09-23 08:09 | XMS_ITS | Encounter Summary ---
Author Organization [facility] Address [address] [place] [address] [place] [address] Phone Care Team Providers Care Direct Customer Service Representative Name Role Phone Sunni Luis MD Primary Care Provider [phone] Encounter Details Date Type Department Care Team (Late st Contact Info) Description 11/15/2024 Procedure Pass [facility] 30 [place] [address] Social History Tobacco Use Types Packs/Day Years [...] st Contact Info) Description 06/21/2025 Procedure Pass [facility] Echocardiography Clinic [facility]3 [place] [address] 11/08/2025 11:00 AM EST Appointment [facility] Echocardiography Clinic [address] [place] [address] Krysta Landeros MD 75 [place] [address] [email or web address] 11/08/2025 1:00 PM EST Office Visit [facility] Arthritis Center [facility] 60 [place] [address] Krysta Landeros MD 75 [place] [address] [email or web address] 12/12/2025 1:00 PM EST Office Visit [facility] [place] [place] 32 [facility], 5th Floor, [address] [place] [address] Martin Minaya MD, MS [address] 605 [facility] 07 [place] [address] JOSE [email or web address] documented as of this encounter Visit Diagnoses Not on filedocumented in this encounter Care Teams Direct Customer Service Representative Relationship Specialty Start Date End Date Sunni Luis MD PCP - General Internal Medicine 05/22/22 documented as of this encounter Additional Source Comments The information contained in this document represents components of the legal health record. It is not the complete legal health record.[facility]
--- OUTSIDE RECORDS SUMMARY | 2025-09-23 08:09 | XMS_ITS | Encounter Summary ---
Author Organization [facility] Address [address] [place] [address] [place] [address] Phone Care Team Providers Care Song And Dance Performer Name Role Phone Sunni Luis MD Primary Care Provider + [phone] Reason for Referral * - New Request Specialty Diagnoses / Procedures Referred By Kassie wadsworth Referred To Contact Diagnoses Palpitations Procedures Event Monitor Looping up to 30 Days MCT (Mobile Cardiac Telemetry) Hector Montilla PA-C [address] [place] [address] Phone: tel: fax: mailto:[email or web address] Referral ID Status Reason Start Date Expiration Date V isits Requested Visits Authorized [id number] New Request 03/30/2025 1 1 Encounter Details Date Type Department Care Team (Latest Contact Info) Description 04/06/2025 Ancillary Orders [facility] Cardiovascular Clinic 70 [place] [address] Hector Montilla PA-C [address] [place] [phone] [email or web address] History of pericarditis (Primary Dx); Palpitations; Chest [...] st Contact Info) Description 06/21/2025 Procedure Pass [facility] Echocardiography Clinic [address] [place] [address] 11/08/2025 11:00 AM EST Appointment [facility] Echocardiography Clinic [address] [place] [address] Krysta Landeros MD [address] [place] [address] [email or web address] 11/08/2025 1:00 PM EST Office [facility] Arthritis Center Main [address] [address] Krysta Landeros MD [address] [place] [address] [email or web address] 12/12/2025 1:00 PM EST Office [place] [facility] [place] 32 [facility], 5th Floor, [address] [place] [address] Martin Minaya MD, MS [address] 07 [place] [address] JOSE G@[facility] documented as of this encounter Results * Event Monitor Looping up to 30 Days (04/13/2025 1:25 PM EDT) Anatomical Region Laterality Modality Heart Other 04/12/2025 11:5 9 PM EDT Narrative 04/15/2025 9:06 AM EDT I have read the catheterization laboratory technician summary and agree with the reported [...] MD - 04/15/2025 I have read the catheterization laboratory technician summary and agree with the reported [...] type documented in this encounter Care Teams Song And Dance Performer Relationship Specialty Start Date End Date Sunni Luis MD PCP - General Internal Medicine 05/22/22 documented as of this encounter Additional Source Comments The information contained in this document represents components of the legal health record. It is not the complete legal health record.[facility]
--- OUTSIDE RECORDS SUMMARY | 2025-09-23 08:09 | XMS_ITS | Encounter Summary ---
Author Organization [facility] Address [address] [place] [address] [place] [address] Phone Care Team Providers Care Waredresser Name Role Phone Sunni Luis MD Primary Care Provider [phone] Encounter Details Date Type Department Care Team (Late Contact Info) Description 02/06/2025 Procedure Pass [facility]oscopy Admitting Dept Virtual Department [address] [place] [address] Social History Tobacco Use Types Packs/Day Years [...] Contact Info) Description 06/21/2025 Procedure Pass [facility] Echocardiography Clinic [facility]3 [place] [address] 11/08/2025 11:00 AM EST Appointment [facility] Echocardiography Clinic [address] [place] [address] Krysta Landeros MD 75 [place] [address] [email or web address] 11/08/2025 1:00 PM EST Office Visit [facility] Arthritis Center Main [place] [address] [place] [address] Krysta Landeros MD 75 [place] [address] [email or web address] 12/12/2025 1:00 PM EST Office Visit [facility] Cardiovascular Medicine 32 [facility], 5th Floor, [address] [place] [address] Martin Minaya MD, MS [address] 605 [facility] 07 [place] [address] JOSE G@[email or web address] documented as of this encounter Visit Diagnoses Not on filedocumented in this encounter Care Teams Waredresser Relationship Specialty Start Date End Date Sunni Luis MD PCP - General Internal Medicine 05/22/22 documented as of this encounter Additional Source Comments The information contained in this document represents components of the legal health record. It is not the complete legal health record.[facility]
--- OUTSIDE RECORDS SUMMARY | 2025-09-23 08:09 | XMS_ITS | Encounter Summary ---
Author Organization [facility] Address [address] [place] [address] [place] [address] Phone Care Team Providers Care Business Unit Manager Name Role Phone Sunni Luis MD Primary Care Provider [phone] Encounter Details Date Type Department Care Team (Late Contact Info) Description 10/18/2023 Procedure Pass [facility] EKG 70 [place] [address] Social History Tobacco Use Types Packs/Day Years [...] (Late Contact Info) Description 06/21/2025 Procedure Pass [facility] Echocardiography Clinic [address] [place] [address] 11/08/2025 11:00 AM EST Appointment [facility] Echocardiography Clinic [address] [place] [address] Krysta Landeros MD 75 [place] [address] [email or web address] 11/08/2025 1:00 PM EST Office Visit [facility] Arthritis Center Main [place] [address] [place] [address] Krysta Landeros MD 75 [place] [address] [email or web address] 12/12/2025 1:00 PM EST Office Visit [facility] Cardiovascular Medicine [address] [place] [address], 5th Floor, [address] [place] [address] Martin Minaya MD, MS [address] [place] [address] JOSE G@[email or web address] documented as of this encounter Visit Diagnoses Not on filedocumented in this encounter Care Teams Business Unit Manager Relationship Specialty Start Date End Date Sunni Luis MD PCP - General Internal Medicine 05/22/22 documented as of this encounter Additional Source Comments The information contained in this document represents components of the legal health record. It is not the complete legal health record.[facility]
--- OUTSIDE RECORDS SUMMARY | 2025-09-23 08:10 | XMS_ITS | Encounter Summary ---
Author Organization [facility] Address [address] [place] [address] [place] [address] Phone Care Team Providers Care Director Community Center Name Role Phone Sunni Luis MD Primary Care Provider [phone] Reason for Referral * - Closed Specialty Diagnoses / Procedures Referred By Kassie wadsworth Referred To Contact Diagnoses Palpitations Procedures Patch Monitor up to 7 Days Patch Monitor up to 15 days Jo Yousif MD, PhD Phone: tel: mailto:[email or web address] Referral ID Status Reason Start Date Expiration Date Visits Re quested Visits Authorized [id number] Closed 10/18/2023 10/17/2024 1 1 Encounter Details Date Type Department Care Team (Late st Contact Info) Description 11/20/2023 Ancillary Orders [facility] Cardiovascular Clinic 70 [place] [address] Jo Yousif MD, PhD 75 [place] [address] [email or web address] Palpitations Social History Tobacco Use Types Packs/Day [...] st Contact Info) Description 06/21/2025 Procedure Pass [facility] Echocardiography Clinic [address] [place] [address] 11/08/2025 11:00 AM EST Appointment [facility] Echocardiography Clinic [address] [place] [address] Krysta Landeros MD [address] [place] [address] [email or web address] 11/08/2025 1:00 PM EST Office Visit [facility] Arthritis Center [address] [address] Krysta Landeros MD [address] [place] [address] [email or web address] 12/12/2025 1:00 PM EST Office Visit [facility] Cardiovascular Medicine 32 [facility], 5th Floor, [address] [place] [address] Martin Minaya MD, MS [address] [place] [address] JOSE G@[email or web address] documented as of this encounter Results * Patch Monitor up to 7 Days (11/20/2023 11:01 AM EST) Anatomical Region Laterality Modality Heart Other Jo Yousif MD, PhD CV CARDIAC [facility] ORD ERABLES Final Result documented in this encounter Visit Diagnoses Diagnosis Palpitations documented in this encounter Care Teams Director Community Center Relationship Specialty Start Date End Date Sunni Luis MD PCP - General Internal Medicine 05/22/22 documented as of this encounter Additional Source Comments The information contained in this document represents components of the legal health record. It is not the complete legal health record.[facility]
--- OUTSIDE RECORDS SUMMARY | 2025-09-23 08:10 | XMS_ITS | Clinical Summary ---
Author Organization [facility] Address [facility] [employer] [facility] [address] [place] [phone] Phone Care Team Providers Care Product Mgr Name Role Phone Sunni Luis MD Primary [...] retrieve copy of most recent hospitalization from [facility] for reviewe She will see me [...] retrieve copy of most recent hospitalization from [facility] for reviewe She will see me [...] then changed to colchicine and Motrin when health and safety specialist did not find any measure of active SLE on labs Followed by slip cover cutter at [facility], I will try to retrieve cardiology notes for review. Assessment & Plan (05/26/2022 11:12 AM EDT): History of pericardial effusion with tamponade in 05/15/2019 unclear etiology. Treated initially treated with high dose prednisone as thought to be due to SLE but then changed to colchicine and Motrin when health and safety specialist did not find any measure of active SLE on labs Followed by slip cover cutter at [facility], I will try to retrieve cardiology notes for review. Family History Medical History Relation Comments Hypertension [...] st Contact Info) Description 06/21/2025 Procedure Pass [facility] E[facility] Clinic [facility] [place] [address] 11/08/2025 11:00 AM EST Appointment [facility] E[facility]ocardiography Clinic [address] [place] [id number] Krysta Landeros MD [address] [place] [phone] [email or web address] 11/08/2025 1:00 PM EST Office Visit [facility] [address] [place] [address] [place] [address] Krysta Landeros MD [address] [place] [phone] [email or web address] 12/12/2025 1:00 PM EST Office Visit [facility] [address] [facility], 5th Floor, [address] [place] [address] Martin Minaya MD, MS [address] [place] [address] [email or web address] Health Maintenance Due Date Last Done Comments DEPRESSION SCREENING 2005 SMOKING Hx and SMOKELESS TOBACCO SCREENING 2006 HIV ONE-TIME SCREENING (18-6 5 YEARS) 2011 PNEUMOCOCCAL VACCINES (0-49 years) (2 of 2 - PCV) 05/22/2021 05/22/2020 COVID-19 VACCINE (3 - Pfizer risk series) 09/05/2021 08/08/2021, 07/18/2021 INFLUENZA VACCINE (#1) 2025 , 10/25/2021, 09/16/2018 PAP SMEAR 02/18/2026 02/18/2023 Adult [...] Procedure Name Priority Date/Time Associated Diagnosis Comments HEPATITIS C ANTIBODY, QUALITATIVE Routine 12/29/2022 7:08 AM EST Need for hepatitis C screening test from Last 3 Months or Most Recently Relevant to Health Maintenance Results * Hepatitis C antibody, qualitative (12/29/2022 7:08 AM EST) HCV NON-REACTIV E NON-REACTI VE [facility] Blood 12/29/2022 7:08 AM EST 12/29/2022 7:11 AM EST us Krysta Landeros MD LAB BLOOD ORDERABLES Final Result [address] [id number] from Last 3 Months or Most Recently Relevant to Health Maintenance Insurance [facility] [place] [employer] [address] [place] [address] Care Teams Product Mgr Relationship Specialty Start Date End Date Sunni Luis MD PCP - General Internal Medicine 05/22/22 Additional Source Comments The information contained in this document represents components of the legal health record. It is not the complete legal health record.[facility]
== END 2025-09-23 08:06 | disposition home or self-care (01) ==
LOC: HO.CT 08:05
PROVIDERS: PCP Internal Medicine; Visit Provider Nurse Practitioner Family
DX: R91.8 Other nonspecific abnormal finding of lung field (principal); M32.12 Pericarditis in systemic lupus erythematosus; M34.9 Systemic sclerosis, unspecified
CPT/HCPCS: 71250

== ENCOUNTER → 2025-09-23 08:08 | Outpatient (BNV) | payer BC, SELFPAY | PROVIDERS: PCP Internal Medicine; Visit Provider Radiology Diagnostic Radiology | DX: R91.8 Other nonspecific abnormal finding of lung field (principal) | CPT/HCPCS: 71250 ==